=== PATIENT | female | born 1940 | race Hispanic/Latino ===

== ENCOUNTER 2017-04-22 13:31 | Observation (INO) | payer BC, MEDICARE ==
--- NOTE | 2017-04-22 14:03 | ED PDOC ---
Arrival/HPI - General Chief Complaint: Chest Pain Time Seen by Provider: 04/22/17 13:33 Historian: Patient - History of Present Illness Narrative History of Present Illness (Text): 04/22/17 13:35 Viki Rodriguez is a 77 year old female who presents to the emergency department complaining of pressure-like chest pain accompanied by cough for the last few days. Patient describes her chest pain to be like "someone is sitting on her chest" and experiences associated shortness of breath. Patient denies any fever , chills, nausea, vomiting, diarrhea, headache, dizziness, or any other complaints. PMD: Dr. Glasgow Time/Duration: < week Symptom Onset: Gradual Symptom Course: Unchanged Severity Level: Mild Activities at Onset: Light Context: Home Past Medical History - Provider Review Nursing Documentation Reviewed: Yes - Tetanus Immunization Tetanus Immunization: Unknown - Cardiac Hx Cardiac Disorders: Yes Hx Hypertension: Yes - Pulmonary Hx Respiratory Disorders: No - Neurological Hx Neurological Disorder: No - HEENT Hx HEENT Disorder: No - Renal Hx Renal Disorder: No - Endocrine/Metabolic Hx Endocrine Disorders: Yes Hx Diabetes Mellitus Type 2: Yes Hx Hypothyroidism: Yes - Hematological/Oncological Hx Blood Disorders: No Hx Blood Transfusions: No Hx Blood Transfusion Reaction: No - Integumentary Hx Dermatological Disorder: No - Musculoskeletal/Rheumatological Hx Musculoskeletal Disorders: No - Gastrointestinal Hx Gastrointestinal Disorders: Yes (APPENDECTOMY) Hx Gastroesophageal Reflux: Yes - Genitourinary/Gynecological Hx Genitourinary Disorders: No - Psychiatric Hx Psychophysiologic Disorder: No Hx Emotional Abuse: No Hx Physical Abuse: No Hx Substance Use: No - Surgical History Hx Appendectomy: Yes Hx Hysterectomy: Yes (partial hystrectomy 1980) - Anesthesia Hx Anesthesia Reactions: Yes Hx Malignant Hyperthermia: No - Suicidal Assessment Feels Threatened In Home Enviroment: No Family/Social History - Physician Review Nursing Documentation Reviewed: Yes Family/Social History: No Known Family HX Smoking Status: Light Smoker < 10 Cigarettes Daily Hx Alcohol Use: No Hx Substance Use: No Allergies/Home Meds Allergies/Adverse Reactions: Allergies Iodinated Contrast Media - Oral and Allergy (Verified 04/22/17 14:18) ITCHING Home Medications: Home Meds Medication Instructions Recorded Confirmed Fenofibrate [Tricor] 145 mg PO DAILY 04/18/13 04/22/17 Atorvastatin Calcium [Lipitor] 40 mg PO DAILY 06/06/13 04/22/17 Aspirin [Adult Low Dose Aspirin EC] 81 mg PO DAILY 04/22/17 04/22/17 Glyburide/Metformin HCl 1 tab PO BID 04/22/17 04/22/17 [Glyburide-Metformin 2.5-500 mg] Levothyroxine [Synthroid] 0.1 mg PO DAILY 04/22/17 04/22/17 amLODIPine [Norvasc] 125 mg PO DAILY 04/22/17 04/22/17 Physical Exam - Physical Exam Narrative Physical Exam (Text): - Review of Systems Constitutional: Normal. absent: Fatigue, Weight Change, Fevers Eyes: Normal ENT: Normal Respiratory: Normal absent: SOB, Cough, Sputum Cardiovascular: chest pain absent: Palpitations, Syncope Gastrointestinal: Normal absent: Abdominal pain, Diarrhea, Nausea, Vomiting Genitourinary: Normal. absent: Dysuria, Frequency, Hematuria Musculoskeletal: Normal. absent: Arthralgias, Back Pain, Neck Pain Skin: Normal Neurological: Normal absent: Focal Weakness Endocrine: Normal Hemo/Lymphatic: Normal Psychiatric: Normal - Physical exam Patient appears age appropriate, speaking full sentences without difficulty - Systems Exam Head: Present: Atraumatic, Normocephalic Pupils: Present: PERRL Extraocular Muscles: Present: EOMI Conjunctiva: Present: Normal Mouth: Present: Moist Mucous Membranes Neck: Present: Normal Range of Motion. No: MIDLINE TENDERNESS, Paraspinal Tenderness Respiratory/Chest: Present: Clear to Auscultation, Good Air Exchange. No: Respiratory Distress, Accessory Muscle Use, Tachypneic Cardiovascular: Present: Regular Rate and Rhythm, Normal S1, S2, Peripheral Pulses Present. No: Murmurs Abdomen: Present: Normal Bowel Sounds, No: Tenderness, Peritoneal Signs, Rebound, Guarding, Distention Back: Present: Normal Inspection. No: Midline Tenderness, Paraspinal Tenderness Upper Extremity: Present: Normal Inspection. No: Cyanosis, Edema Lower Extremity: Present: Normal Inspection. No: Edema Neurological: Present: GCS=15, Speech Normal, cranial nerves II through XII fully intact with no cerebellar abnormality, neuro-sensory fully intact. No focal neurological deficits. Skin: Present: Warm, Dry, Normal Color. No: Rashes Lymphatic: Present: OX3, NI, NC Psychiatric: Present: Alert, Oriented x 3, Normal Insight, Normal Concentration Vital Signs Reviewed: Yes Vital Signs Temp Pulse Pulse Resp BP BP Pulse Ox 04/22/17 15:19 86 18 153/75 H 97 04/22/17 13:52 97.7 F 68 83 18 188/89 H 188/89 H 99 04/22/17 13:41 97.7 F 91 H 18 188/89 H 98 Temperature: Afebrile Blood Pressure: Hypertensive Pulse: Tachycardic Respiratory Rate: Normal Appearance: Positive for: Well-Appearing, Non-Toxic, Comfortable Pain Distress: None Mental Status: Positive for: Alert and Oriented X 3 Medical Decision Making ED Course and Treatment: 04/22/17 13:35 Impression: 77 year old female complaining of pressure-like chest pain with associated coughs for a few days Differential Diagnosis include but are not limited to: ACS vs. Pneumonia Plan: -- Chest X-ray -- Labs -- Aspirin and Nitrostat -- Reassess and disposition Prior Visits: Notes and results from previous visits were reviewed. Patient last seen in ED on 04/08/13 for sudden onset of ringing in ears and severe dizziness that day. Patient was admitted to hospitalist care for further evaluation. Progress Notes: EKG shows NSR at [address]-segment elevations, normal intervals. with no prior for comparison. Interpreted by me. 04/22/17 16:28 CXR Outboard Motorboat Rigger : Suzanna Keene MD IMPRESSION: Cardiomegaly. Mild subsegmental bibasilar atelectasis. 04/22/17 16:[address] Garcia, covering for Dr. Gary ([place]), agrees with tele/obs, and Dr. Baumann on consult, per pt's request pt aware of and agrees with plan - Lab Interpretations Lab Results: 04/22/17 14:09 04/22/17 14:00 Lab Results 04/22/17 14:09: PT 11.5, INR 1.06, APTT 24.7 04/22/17 14:09: WBC 7.6, RBC 4.49, Hgb 13.0, Hct 39.3, MCV 87.5, MCH 29.0, MCHC 33.1, RDW 15.3 H, Plt Count 297, MPV 12.0 H, Gran % 61.8, Lymph % (Auto) 27.7, Dougherty % (Auto) 8.1 H, Eos % (Auto) 2.0, Baso % (Auto) 0.4, Gran # 4.72, Lymph # 2.1, Dougherty # 0.6, Eos # 0.2, Baso # 0.03 04/22/17 14:00: Sodium 141, Potassium 3.6, Chloride 105, Carbon Dioxide 24, Anion Gap 16, BUN 19, Creatinine 0.8, Est GFR ( Amer) > 60, Est GFR (Non- Af Amer) > 60, Random Glucose 147 H, Calcium 9.7, Total Bilirubin 0.6, AST 26, ALT 31, Alkaline Phosphatase 57, Lactate Dehydrogenase 480, Total Creatine Kinase 117, Troponin I < 0.01, Total Protein 7.5, Albumin 4.3, Globulin 3.2, Albumin/Globulin Ratio 1.3 - RAD Interpretation Radiology Orders: 04/22/17 14:09 CHEST PORTABLE [RAD] Stat - Medication Orders Current Medication Orders: Discontinued Medications Aspirin (Aspirin Chewable) 324 mg PO STAT STA Stop: 04/22/17 14:09 Last Admin: 04/22/17 14:28 Dose: 324 mg Nitroglycerin (Nitrostat Sl Tab) 0.3 mg SL STAT STA Stop: 04/22/17 14:09 Last Admin: 04/22/17 14:28 Dose: 0.3 mg - Scribe Statement The provider has reviewed the documentation as recorded by the Paul Childers Provider Scribe Attestation: All medical record entries made by the Scribe were at my direction and personally dictated by me. I have reviewed the chart and agree that the record accurately reflects my personal performance of the history, physical exam, medical decision making, and the department course for this patient. I have also personally directed, reviewed, and agree with the discharge instructions and disposition. Disposition/Present on Arrival - Present on Arrival Any Indicators Present on Arrival: No History of DVT/PE: No History of Uncontrolled Diabetes: No Urinary Catheter: No History of Decub. Ulcer: No History Surgical Site Infection Following: None - Disposition Have Diagnosis and Disposition been Completed?: Yes Diagnosis: Chest pain Disposition: HOME/ ROUTINE Disposition Time: 16:40 Patient Plan: Observation Condition: FAIR Discharge Instructions (ExitCare): Chest Pain (ED) Referrals: Tello Glasgow MD [Primary Care Provider] - Follow up with primary
[2017-04-22 15:03] LABS: ADD MANUAL DIFF? NO; BASO # 0.03 K/mm3 (0.0-2.0); BASO % 0.4 % (0.0-3.0); EOS # 0.2 (0.0-0.7); GRAN # 4.72 (1.4-6.5); GRAN % 61.8 % (50.0-68.0); HEMATOCRIT 39.3 % (36.0-48.0); LYMPH # 2.1 (1.2-3.4); LYMPH % 27.7 % (22.0-35.0); MEAN CELL VOLUME 87.5 fL (80.0-105.0); MEAN CORPUSCULAR HGB CONC 33.1 g/dl (31.0-37.0); MONO # 0.6 (0.1-0.6); MONO % 8.1 % (1.0-6.0); PLATELET COUNT 297 10^3/uL (120.0-450.0); RED CELL DISTRIBUTION WIDTH 15.3 % (11.5-14.5); WHITE BLOOD COUNT 7.6 10^3/ul (4.5-11.0)
[2017-04-22 15:13] LABS: INR 1.06 (0.93-1.08); PARTIAL THROMBOPLASTIN TIME 24.7 Seconds (23.7-30.8)
[2017-04-22 15:17] LABS: ALB/GLOB RATIO 1.3 (1.1-1.8); ALKALINE PHOSPHATASE 57 U/L (38-133); ALT/SGPT 31 U/L (7-56); AST/SGOT 26 U/L (15-39); BILIRUBIN,TOTAL 0.6 mg/dL (0.2-1.3); BLOOD UREA NITROGEN 19 mg/dL (7-21); CALCIUM 9.7 mg/dL (8.4-10.5); CARBON DIOXIDE 24 mmol/L (21-33); CHLORIDE 105 mmol/L (98-107); GFR AFRICAN-AMERICAN > 60; GLUCOSE,RANDOM 147 mg/dL (70-110); POTASSIUM 3.6 mmol/L (3.6-5.0); SODIUM 141 mmol/L (132-148); TOTAL PROTEIN 7.5 g/dL (5.8-8.3)
[2017-04-22 15:30] LABS: TROPONIN I < 0.01 ng/mL
--- NOTE | 2017-04-22 16:00 | RAD ---
HISTORY: cough COMPARISON: Chest x-ray performed 04/18/13 TECHNIQUE: Chest, one view. FINDINGS: LUNGS: Mild bibasilar subsegmental atelectasis. Please note that chest x-ray has limited sensitivity for the detection of pulmonary masses. PLEURA: No significant pleural effusion identified. No definite pneumothorax . CARDIOVASCULAR: Cardiomegaly. OSSEOUS STRUCTURES: Degenerative changes. VISUALIZED UPPER ABDOMEN: Unremarkable. OTHER FINDINGS: None. IMPRESSION: Cardiomegaly. Mild subsegmental bibasilar atelectasis.
[2017-04-22] MEDS ORDERED: Naproxen 550 mg Tab PO PRN (18:01)
[2017-04-22] MEDS ORDERED: METFORMIN HCL PO SCH (18:15)
[2017-04-22] MEDS ORDERED: [UNRECOGNIZED DRUG - OTHER] PO SCH (18:15)
[2017-04-22] MEDS ORDERED: GLYBURIDE PO SCH (18:15)
[2017-04-22 19:35] LABS: CHOLESTEROL 143 mg/dL (130-200)
[2017-04-22 20:03] VITALS: BMI 23.9
[2017-04-22] MEDS ORDERED: Pneumococcal 23-Valent Vaccine IM ONE (20:03)
[2017-04-22 20:05] LABS: TROPONIN I < 0.01 ng/mL
--- NOTE | 2017-04-22 20:40 | HP ---
HISTORY OF PRESENT ILLNESS: The patient is 77 years old, a patient of Dr. Glasgow, who came to the [facility] Room because of chest pain, it was pressure-like, that started a few days ago, but it got wors e today. She feels like somebody is sitting on the chest. She does have associated cough, but denie s any fever. Does complain of some generalized weakness and shortness of breath. No history of feve r or chills. No history of hemoptysis, no hematemesis, no nausea, vomiting, no diarrhea, no chest tr auma. No history of fall. PAST MEDICAL HISTORY: Is significant for: 1. Hypertension. 2. Hypothyroidism. 3. Non-insulin dependent diabetes. 4. Hyperlipidemia and hypertriglyceridemia. ALLERGIES: SHE IS ALLERGIC TO IODINATED RELATED CONTRAST DYE. MEDICATIONS AT HOME: She is on Norvasc 5 mg daily, levothyroxine 100 mcg daily. She is on Glucovanc e, Tricor 145 daily, Lipitor 40 mg daily, aspirin 81 daily. SOCIAL HISTORY: Denies smoking, drinking or alcohol use. REVIEW OF SYSTEMS: CONSTITUTIONAL: Denies any nausea or vomiting, no fever, no chills, no weight loss, no diaphoresis. CARDIOVASCULAR: She does have chest pressure, but no associated palpitations. EXTREMITIES: A history of leg edema. RESPIRATORY: No shortness of breath. Does have a scanty cough. GASTROINTESTINAL: She denies any abdominal pain. No history of dysphagia. She did not have any hem optysis or hematemesis. PHYSICAL EXAMINATION: GENERAL: She is awake and alert, communicative. VITAL SIGNS: She is afebrile, pulse 86, respirations 18, blood pressure 153/75. LUNGS: Bilateral fair airflow, no rhonchi or crackle. HEART: S1, S2 audible. No murmur. ABDOMEN: Soft, nontender, no rebound, no guarding. NEUROLOGIC: The patient is awake and alert, communicative. LABORATORY DATA: WBC 7.6, hemoglobin 13, hematocrit 39, platelet of 297. PT 11.5, INR 1.06, PTT ___ __. Chemistry: Sodium 141, potassium 3.6, chloride 105, 19, creatinine 0.8, blood sugar 147. LFTs are within normal limits. Troponin 0.01. Albumin 4.3. X-ray chest is unremarkable. ASSESSMENT: 1. Chest pain, rule out coronary artery disease. 2. Hypertension. 3. Hyperlipidemia. 4. Non-insulin dependent diabetes. PLAN: The patient will be placed in observation. Will follow up cardiac enzymes. Analgesic as need ed. Follow up hemoglobin A1c. Thyroid profile and liver profile. Will monitor her blood sugar and start her on aspirin 81 daily. Will resume glyburide 2.5 and metformin 500 before breakfast and dinn er. Cardiology consult by Dr. Baumann has been requested. Out of bed to chair, physical therapy evalua tion has been requested and the patient will be evaluated in a.m. Mario Garcia MD cc: [id number] TT: 04/22/2017 20:39:37 dn
[2017-04-22] MEDS: Insulin Reg-LOW-Coverage SC SCH (23:34)
[2017-04-23] MEDS: Pantoprazole 40 mg EC Tab PO SCH (05:54)
[2017-04-23 06:16] VITALS: O2SAT 97
[2017-04-23 06:55] LABS: ADD MANUAL DIFF? NO
[2017-04-23 07:16] LABS: BASO # 0.03 K/mm3 (0.0-2.0); BASO % 0.4 % (0.0-3.0); EOS # 0.2 (0.0-0.7); EOS % 1.9 % (1.5-5.0); GRAN # 5.21 (1.4-6.5); HEMATOCRIT 37.9 % (36.0-48.0); LYMPH # 2.1 (1.2-3.4); LYMPH % 25.3 % (22.0-35.0); MEAN CELL VOLUME 87.3 fL (80.0-105.0); MEAN CORPUSCULAR HEMOGLOBIN 28.6 pg (25.0-35.0); MEAN CORPUSCULAR HGB CONC 32.7 g/dl (31.0-37.0); MEAN PLATELET VOLUME 11.8 fl (7.0-11.0); MONO # 0.8 (0.1-0.6); MONO % 9.4 % (1.0-6.0); PLATELET COUNT 278 10^3/uL (120.0-450.0); RED CELL DISTRIBUTION WIDTH 15.4 % (11.5-14.5); WHITE BLOOD COUNT 8.3 10^3/ul (4.5-11.0)
[2017-04-23 07:17] LABS: ALB/GLOB RATIO 1.2 (1.1-1.8); ALKALINE PHOSPHATASE 50 U/L (38-133); ALT/SGPT 32 U/L (7-56); AST/SGOT 24 U/L (15-39); BILIRUBIN,TOTAL 0.5 mg/dL (0.2-1.3); BLOOD UREA NITROGEN 15 mg/dL (7-21); CALCIUM 8.9 mg/dL (8.4-10.5); CARBON DIOXIDE 26 mmol/L (21-33); CHLORIDE 107 mmol/L (98-107); GFR AFRICAN-AMERICAN > 60; GLUCOSE,RANDOM 102 mg/dL (70-110); MAGNESIUM 1.7 mg/dL (1.7-2.2); POTASSIUM 3.6 mmol/L (3.6-5.0); SODIUM 141 mmol/L (132-148); TOTAL PROTEIN 6.5 g/dL (5.8-8.3)
[2017-04-23 07:25] LABS: FREE T4 1.31 ng/dL (0.78-2.19)
[2017-04-23 07:39] LABS: THYROID STIMULATING HORMONE 1.26 mIU/mL (0.46-4.68)
[2017-04-23] MEDS: Insulin Reg-LOW-Coverage SC SCH ×4 (08:25→22:00)
[2017-04-23] MEDS: Metoprolol Succinate 25 mg XL Tab PO SCH (08:25)
[2017-04-23] MEDS: Levothyroxine 100 MCG TAB PO SCH (08:25)
[2017-04-23] MEDS ORDERED: Promethazine/Cod 6.25mg-10mg/5ml Syr UD PO PRN (10:19)
[2017-04-23] MEDS: levoFLOXacin 500 MG TAB PO SCH (11:14)
--- NOTE | 2017-04-23 11:46 | PN ---
DATE: 04/23/2017 SUBJECTIVE: The patient is a 77-year-old, seen and examined, lying in bed. She states she feels a l ot better. No more chest pain. Still has scanty cough. No nausea, vomiting, no diarrhea. Eating a nd tolerating. [place]. Did not want to go to the local hospital so her daughter brought her here and since admission she is feeling much chong r. PHYSICAL EXAMINATION: VITAL SIGNS: The patient is afebrile, pulse 75, respirations 20, blood pressure 169/66. LUNGS: Bilateral fair airflow, no crackle. HEART: S1, S2 audible. ABDOMEN: Soft, nontender, no rebound, no guarding. NEUROLOGIC: The patient is awake and alert, able to communicate. LABORATORY EXAMINATION: WBC is 8.3, hemoglobin 12.4, hematocrit 37, platelet 278. Chemistry: Sodiu m 141, potassium 3.6, chloride 107, CO2 of 23, BUN 15, creatinine 0.7, blood sugar 112. LFTs are wit hin normal limits. X-ray chest shows mild subsegmental bibasilar atelectasis and cardiomegaly. ASSESSMENT: 1. Chest pain, probably noncardiac. Two sets of cardiac enzymes are negative. Third is pending. 2. Hypertension. 3. Hyperlipidemia. 4. Non-insulin dependent diabetes. PLAN: Currently, the patient is stable on her usual medication. Awaiting cardiology input. Is less likely it is cardiology's related chest discomfort. After she is seen by senior technical specialist, stress test can be arranged as outpatient and she can follow up with Dr. Glasgow as outpatient. Mario Garcia MD cc: [id number] TT: 04/23/2017 11:45:34 Confirmation # [id number] Dictation # [id number] [id number]
--- NOTE | 2017-04-23 16:26 | CON ---
DATE: 04/23/2017 REASON FOR CONSULTATION: Chest pain. HISTORY OF PRESENT ILLNESS: The patient is a 77-year-old female who is a smoker, has a history of di abetes mellitus, hypertension as well as hypothyroidism. The patient presented because of chest pain, which she describes to the Emergency Room physician as pressure like. However, in her description to me, she mainly was bothered by the shortness of breath and what she described as chest tightness. T he patient is unaware of any prior heart attack in the past. The patient reported productive cough, night sweats. The patient denies any history of TB or TB exposure in the past. SOCIAL HISTORY: The patient is a smoker who stated that a pack lasts her a few days. REVIEW OF SYSTEMS: No nausea or vomiting. The patient complains of night sweats, changes her clothe s twice at night. MEDICATIONS: Anaprox 550 mg twice a day p.r.n., aspirin 81 mg once a day, Glucophage 500 mg twice a day, Levaquin 500 mg daily, Lipitor 40 mg once a day, Micronase 5 mg twice a day, Norvasc 10 mg once a day, Phenergan with codeine 5 mL q. 4 hours p.r.n., Protonix 40 mg once a day, Toprol-XL 25 mg once a day, Synthroid 100 mg once a day, Tricor 145 mg once a day, Zofran 4 mg intravenously q. 6 hours p.r.n. PHYSICAL EXAMINATION: GENERAL: The patient is an elderly female who does not appear to be in any distress, but appears ernesto ciated. VITAL SIGNS: Blood pressure 156/82, heart rate 57, temperature 97.3, respirations 19. HEENT: Normocephalic. NECK: No JVD. CHEST: Minimal rhonchi. HEART: S1, S2 regular. ABDOMEN: Soft. EXTREMITIES: No edema. LABORATORY DATA: Hemoglobin and hematocrit 12.4 and 37.9. White count and platelet count are 8.3 an d 278,000. PT, PTT within normal limits. SMA-7 is entirely within normal limits. Two sets of tropo nins are negative. Triglycerides elevated 257, HDL is below normal at 28. TSH-7 and free T4 are wit hin normal limits. EKG revealed normal sinus rhythm, left atrial enlargement. Chest x-ray revealed cardiomegaly with prominent bronchovascular markings. ASSESSMENT: 1. Chest pain, myocardial infarction is ruled out. 2. Consider underlying congestive heart failure. 3. Hypertension and diabetes mellitus. 4. Hyperlipidemia. RECOMMENDATIONS: Continue aspirin 81 mg once a day, Levaquin at 500 mg orally daily, Lipitor at 40 m g once a day, Norvasc 10 mg once a day, Synthroid 100 mcg once a day, Toprol-XL 25 mg once a day, Tri cor 145 mg once a day. Obtain an echocardiogram. Consider PPD testing. I will administer 1 dose of Lasix 20 mg IV push. Harjit Mcmahan MD cc: [id number] TT: 04/23/2017 16:25:39 Confirmation # [id number] Dictation # [id number] mn
--- NOTE | 2017-04-23 22:14 | CARD ---
APPROVED REPORT EKG Measurement Heart [id number] <Conclusion> Normal sinus rhythm Possible Left atrial enlargement Possible Inferior infarct, age undetermined PRWP Abnormal EKG
[2017-04-24] MEDS: Pantoprazole 40 mg EC Tab PO SCH (05:51)
--- NOTE | 2017-04-24 08:25 | DS ---
SUBJECTIVE: The patient is a 77-year-old female who came in to the hospital because of chest pain. She was seen by cardiology. She had cardiac enzymes which were negative. She has no complaints of a ny chest pain or shortness of breath, no headaches. She is going to follow up as an outpatient for h er symptoms. No headaches or dizziness, no nausea or vomiting. PHYSICAL EXAMINATION: VITAL SIGNS: Temperature is 98.2, pulse of 56, blood pressure 143/63, respirations 19. GENERAL: The patient comfortable, in no acute distress. HEENT: Anicteric sclerae. Moist mucosa. NECK: No JVD or adenopathy. CARDIAC: S1/S2. No murmurs. No rubs. Regular. RESPIRATORY: Clear to auscultation bilaterally. No wheezes, rales, or rhonchi. Good air entry. ABDOMEN: Bowel sounds are positive, soft, nontender, and nondistended. EXTREMITIES: No edema. Has 1+ pulses. LABS: Her LDL cholesterol is 102. TSH is 1.26. ASSESSMENT: 1. Chest pain. 2. Hypertension. 3. Dyslipidemia. 4. Diabetes, type 2. PLAN: The patient is currently comfortable. She is on metformin. She is going to be on aspirin. S he is on Levaquin for antibiotics. She is on her metoprolol. She is on Tricor for her dyslipidemia. She has an echo that is ordered and is pending. CONDITION: Stable. ACTIVITIES: Increase as tolerated. She is going to follow with Dr. Glasgow in 1-2 weeks. She is advi sed to return to the hospital if her symptoms return. Dominic Gary MD cc: [id number] TT: 04/24/2017 08:24:07 la
[2017-04-24] MEDS: Metoprolol Succinate 25 mg XL Tab PO SCH (08:35)
[2017-04-24] MEDS: Levothyroxine 100 MCG TAB PO SCH (08:36)
[2017-04-24] MEDS: Insulin Reg-LOW-Coverage SC SCH ×2 (08:39→11:54)
[2017-04-24] MEDS: levoFLOXacin 500 MG TAB PO SCH (10:25)
[2017-04-24 12:30] VITALS: BP 136/71; PULSE 57; RESP 20; TEMP 97.8
--- NOTE | 2017-04-25 08:43 | PN ---
DATE: 04/24/2017 REASON FOR CONSULTATION AND FOLLOWUP: Chest pain. BRIEF CLINICAL HISTORY: This is a 77-year-old female, active tobacco abuse, history of diabetes, hyp ertension, hyperlipidemia, hypothyroidism, presented because of abdominal pain going to the chest. _ ___ any chest pain. Feels pain at both breasts and started coughing, and also pain radiated to the b ack. The patient was offered a stress test today. The patient refused. No evidence of acute [place]. PHYSICAL EXAMINATION: VITAL SIGNS: Temperature afebrile, heart rate 57, blood pressure 136/71. HEENT: PERRLA. Extraocular muscles intact. NECK: Supple. No carotid bruit or thyromegaly. CHEST: Clear to auscultation. HEART: S1, S2 regular. ABDOMEN: Soft. EXTREMITIES: Clubbing and cyanosis negative. BLOOD WORKUP: As follows: WBC 8.3, hemoglobin 12.4, hematocrit 37.9, platelet count 278. Chemistry shows sodium 141, potassium 3.6, chloride 107, carbon dioxide 26, anion gap of 12, BUN 15, creatinin e 0.7. TSH 1.26. Troponin 0.01. IMPRESSION: No evidence of acute myocardial infarction, atypical chest pain, abdominal pain, no evid ence for acute myocardial infarction, hypertension, diabetes, hyperlipidemia. RECOMMENDATION: Continue medical treatment. The patient is on Norvasc, aspirin, Synthroid. DISCUSS ED WITH THE PATIENT ABOUT THE STRESS TEST TODAY. THE PATIENT REFUSED THE STRESS TEST; DOES NOT WANT A STRESS TEST. Continue medical treatment. CVS status is stable. Will follow with you. Thank you, Dr. Gary, for providing the opportunity in taking care of the patient. Edwin Baumann MD cc: [id number] TT: 04/24/2017 16:16:38 Confirmation # [id number] Dictation # [id number]
== END 2017-04-24 12:58 | disposition home or self-care (01) ==
LOC: ED 13:31 → ERH 16:40 → 2RNO 22:37
PROVIDERS: ADMIT Internal Medicine; ATTEND Internal Medicine Nephrology
DX: R07.89 Other chest pain (principal); I10 Essential (primary) hypertension; E78.5 Hyperlipidemia, unspecified; E11.9 Type 2 diabetes mellitus without complications; E03.9 Hypothyroidism, unspecified; F17.200 Nicotine dependence, unspecified, uncomplicated; Z79.84 Long term (current) use of oral hypoglycemic drugs; Z79.82 Long term (current) use of aspirin; Z91.041 Radiographic dye allergy status
CPT/HCPCS: 36415; 71010; 80053; 80061; 82550; 82948; 83036; 83615; 83735; 84439; 84443; 84484; 85025; 85610; 85730; 93005; 97116; 97161; 99285; G0378; G8978; G8979; G8980; J1940

== ENCOUNTER 2017-09-17 20:44 | Inpatient (IN) | payer MEDICARE ==
[2017-09-17] MEDS ORDERED: Etomidate 20 mg/10ml Inj IV ONE (21:01)
[2017-09-17] MEDS ORDERED: Succinylcholine 200 mg/10 ml Inj IV ONE (21:01)
[2017-09-17] MEDS ORDERED: Ipratropium 0.02% Inhal Soln (0.5 mg/2.5 ml) UD IH STA ×3 (21:18→21:20)
[2017-09-17] MEDS ORDERED: Levalbuterol 1.25 MG/3 ML Inhal Soln UD IH STA ×3 (21:18→21:20)
[2017-09-17] MEDS ORDERED: Propofol 10 mg/ml 1,000 MG/100 ML VIAL ONE ×2 (21:18→23:04)
[2017-09-17 21:21] LABS: BASO # 0.06 K/mm3 (0.0-2.0); BASO % 0.3 % (0.0-3.0); EOS # 0.2 (0.0-0.7); EOS % 1.1 % (1.5-5.0); GRAN # 12.44 (1.4-6.5); GRAN % 64.8 % (50.0-68.0); HEMATOCRIT 40.1 % (36.0-48.0); LYMPH % 26.2 % (22.0-35.0); MEAN CELL VOLUME 88.1 fl (80.0-105.0); MEAN CORPUSCULAR HEMOGLOBIN 28.8 pg (25.0-35.0); MEAN CORPUSCULAR HGB CONC 32.7 g/dl (31.0-37.0); MEAN PLATELET VOLUME 12.9 fl (7.0-11.0); MONO # 1.5 (0.1-0.6); MONO % 7.6 % (1.0-6.0); RED CELL DISTRIBUTION WIDTH 15.7 % (11.5-14.5); WHITE BLOOD COUNT 19.2 10^3/ul (4.5-11.0)
[2017-09-17] MEDS ORDERED: Sodium Chloride 0.9% 1,000 ML IV STA (21:24)
--- NOTE | 2017-09-17 21:25 | ED PDOC ---
Arrival/HPI - General Chief Complaint: Respiratory Distress Time Seen by Provider: 09/17/17 20:47 Historian: Patient - Critical Care Critical Care Minutes: 45 minutes - History of Present Illness Narrative History of Present Illness (Text): 09/17/17 20:47 Viki Rodriguez is a 77 year old female, whose past medical history hypertension, hyperlipidemia, non-insulin dependent diabetes, and hypothyroidism, who presents to the emergency department for severe respiratory distress which began prior to arrival. According to patient's family, patient was well earlier in the evening until she went to the bathroom and came out in severe respiratory distress. When EMS found patient, O2 saturation was 65% and patient was placed on CPAP. SBP was >200 in the field; she was given 2 sprays of nitro. Here in Emergency department, patient admits to chest pain and severe shortness of breath and is saying she does not feel any better on the CPAP. According to family, patient came back last night from [place] but was in usual health. Of note, patient injured one of her shoulders while getting out of her car. No other complaints at this time. PMD: Dr. Glasgow Time/Duration: Prior to Arrival Symptom Onset: Sudden Symptom Course: Unchanged Activities at Onset: Light Context: Home Past Medical History - Provider Review Nursing Documentation Reviewed: Yes - Infectious Disease Hx of Infectious Diseases: None - Tetanus Immunization Tetanus Immunization: Unknown - Cardiac Hx Hypertension: Yes - Pulmonary Other/Comment: smoker - Neurological Hx Dizziness: Yes (vertigo) - HEENT Hx HEENT Disorder: No Other/Comment: does not recall ringing in ears and head - Renal Hx Renal Disorder: No - Endocrine/Metabolic Hx Diabetes Mellitus Type 2: Yes Hx Hypothyroidism: Yes - Hematological/Oncological Hx Blood Disorders: No - Integumentary Hx Dermatological Disorder: No - Musculoskeletal/Rheumatological Hx Falls: No - Gastrointestinal Hx Gastrointestinal Disorders: Yes (dx hiatal hernia 25 yrs ago) Hx Gastroesophageal Reflux: Yes - Genitourinary/Gynecological Hx Genitourinary Disorders: No - Psychiatric Hx Psychophysiologic Disorder: No Hx Depression: Yes Hx Emotional Abuse: No Hx Physical Abuse: No Hx Substance Use: No - Surgical History Hx Appendectomy: Yes Hx Hysterectomy: Yes (partial hystrectomy 1980) - Anesthesia Hx Anesthesia Reactions: Yes Hx Malignant Hyperthermia: No - Suicidal Assessment Feels Threatened In Home Enviroment: No Family/Social History - Physician Review Nursing Documentation Reviewed: Yes Family/Social History: No Known Family HX Smoking Status: Light Smoker < 10 Cigarettes Daily Hx Alcohol Use: Yes Frequency of alcohol use: Socially Hx Substance Use: No Allergies/Home Meds Allergies/Adverse Reactions: Allergies Iodinated Contrast- Oral and IV Dye Allergy (Verified 04/22/17 14:18) ITCHING Home Medications: Home Meds Medication Instructions Recorded Confirmed Fenofibrate [Tricor] 145 mg PO DAILY 04/18/13 09/17/17 Atorvastatin Calcium [Lipitor] 40 mg PO DAILY 06/06/13 09/17/17 Aspirin [Adult Low Dose Aspirin EC] 81 mg PO DAILY 04/22/17 09/17/17 Glyburide/Metformin HCl 1 tab PO BID 04/22/17 09/17/17 [Glyburide-Metformin 2.5-500 mg] Levothyroxine [Synthroid] 125 mcg PO DAILY 04/22/17 09/17/17 amLODIPine [Norvasc] 10 mg PO DAILY 04/22/17 09/17/17 Review of Systems - Review of Systems Systems not reviewed;Unavailable: Acuity of Condition Respiratory: SOB Cardiovascular: Chest Pain Physical Exam Vital Signs Reviewed: Yes Vital Signs Temp Pulse Resp BP Pulse Ox 09/17/17 21:18 100.6 F H 115 H 14 138/53 L 97 Temperature: Febrile Blood Pressure: Hypertensive Pulse: Tachycardic Respiratory Rate: Tachypneic Appearance: Positive for: Ill-Appearing, Other (severe respiratory distress on CiPAP; O2 saturation worsening to 70%; FI O2 at 100%) Pain Distress: None Mental Status: Positive for: other (Alert) - Systems Exam Head: Present: Atraumatic, Normocephalic Pupils: Present: PERRL Conjunctiva: Present: Normal Ears: Present: Normal Mouth: Present: Moist Mucous Membranes Pharnyx: Present: Normal. No: ERYTHEMA, EXUDATE, TONSILS ENLARGED Neck: No: JVD Respiratory/Chest: Present: Rhonchi (bilateral) Cardiovascular: Present: Normal S1, S2, Tachycardic. No: Murmurs Abdomen: Present: Normal Bowel Sounds. No: Tenderness, Distention, Peritoneal Signs Lower Extremity: Present: Normal Inspection. No: Edema Neurological: Present: GCS=15, CN II-XII Intact, Speech Normal Skin: Present: Warm, Dry, Normal Color. No: Rashes Psychiatric: Present: Alert Medical Decision Making ED Course and Treatment: 09/17/17 20:50 Impression: 77 year old female brought in by EMS complaining of severe respiratory distress which began prior to arrival Differential Diagnosis included but are not limited to: COPD exacerbation vs pneumonia vs CHF vs PE vs AMI Plan: -- EKG -- Chest X-ray -- Chest CT w/o contrast -- ABG and Blood Culture -- Urinalysis -- Labs -- Lovenox, Atrovent, Xopenex, Maxipime, Solu-medrol, Diprivan, Vancomycin, and IV fluids -- Reassess and disposition Prior Visits: Notes and results from previous visits were reviewed. Patient was last seen in the emergency department on 04/22/17 for pressure-like chest pain accompanied by cough for a few days. Patient was discharged home. Progress Notes: EKG: Ordered, reviewed, and independently interpreted the EKG. Rate : 127 BPM Rhythm : Sinus Tachycardia Interpretation : Normal intervals, normal axis with ST depressions present in V3 through V6 which were not present on 04/22/17. 09/17/17 20:50 Patient was brought in severe respiratory distress on CPAP; patient saying she is not improving and appearing to be tiring out with O2 sat dwindling to 70% on the Bipap with FIO2 of 100%. Patient intubated and vitals much improved after intubation. CXR showing b/L infiltrates (L>R) with vascular congestion 09/17/17 22:23 Labs with WBC of 19K with with low grade temp of 100.6; BP came down after intubation. ABG with pH of 7.32 with no hypercapnea. BNP is 1600 - EKG with nonspecific changes with no history of CHF and no JVD or LE swelling on exam. CXR shows some vascular congestion. Lactic acid was 2.4; code sepsis called. Patient given iv antibiotics and IVF, per code sepsis protocol. D-dimer was elevated at 515, but patient is allergic to iv contrast dye, so unable to do CTA of the chest - patient given therapeutic dose of lovenox at 1 mg /kg Q12H for possible DVT/PE and will need V/Q scan and LE dopplers in the am. The case was discussed with the cast iron dipper, Dr. Arcos for ICU admission. Case was discussed with Dr. Gary for admission on his service. - Critical Care Critical Care Minutes: 45 minutes - Lab Interpretations Lab Results: 09/17/17 20:50 09/17/17 20:50 Lab Results 09/17/17 20:50: Alcohol, Quantitative < 10 09/17/17 20:50: Sodium 145, Potassium 3.7, Chloride 107, Carbon Dioxide 25, Anion Gap 17, BUN 21, Creatinine 0.8, Est GFR ( Amer) > 60, Est GFR (Non- Af Amer) > 60, Random Glucose 282 H, Calcium 9.8, Magnesium 1.6 L, Total Bilirubin 0.7, Direct Bilirubin 0.6 H, AST 38 H, ALT 35, Alkaline Phosphatase 66 , Lactate Dehydrogenase 504, Total Creatine Kinase 51, Troponin I 0.02 D, NT- Pro-B Natriuret Pep 1600 H, Total Protein 7.4, Albumin 4.2, Globulin 3.2, Albumin/Globulin Ratio 1.3, Lipase 72 09/17/17 20:50: PT 11.3, INR 1.04, APTT 26.4, D-Dimer, Quantitative 515 H 09/17/17 20:50: WBC 19.2 H D, RBC 4.55, Hgb 13.1, Hct 40.1, MCV 88.1, MCH 28.8, MCHC 32.7, RDW 15.7 H, Plt Count 363, MPV 12.9 H, Gran % 64.8, Lymph % (Auto) 26.2, Dupage % (Auto) 7.6 H, Eos % (Auto) 1.1 L, Baso % (Auto) 0.3, Gran # 12.44 H , Lymph # 5.0 H, Dupage # 1.5 H, Eos # 0.2, Baso # 0.06 I have reviewed the lab results: Yes - RAD Interpretation Radiology Orders: 09/17/17 20:49 CHEST PORTABLE [RAD] Stat - Medication Orders Current Medication Orders: Propofol (Diprivan) 1,000 mg in 100 mls @ 1.837 mls/hr IV .Q24H PRN; Protocol; 5 MCG/KG/MIN PRN Reason: TITRATE PER MD ORDER Last Admin: 09/17/17 21:29 Dose: 5 mcg/kg/min, 1.837 mls/hr eMAR Start Stop Document 09/17/17 21:29 GMD (Rec: 09/17/17 21:29 GMD [id number]) Intravenous Solution Start Date 09/17/17 Start Time 21:29 Titration Intervention Document 09/17/17 21:29 GMD (Rec: 09/17/17 21:29 GMD [id number]) Titration Intake Waste Amount 0 Container Volume 100 Titration Dosing Titration Dose 5 IV Rate 1.837 Intake/Decrease Started Cefepime HCl (Maxipime 1gm) 1 gm in 100 mls @ 100 mls/hr IVPB Q24H SUSAN PRN Reason: Protocol Last Admin: 09/17/17 21:31 Dose: 100 mls/hr eMAR Start Stop Document 09/17/17 21:31 GMD (Rec: 09/17/17 21:31 GMD [id number]) Intravenous Solution Start Date 09/17/17 Start Time 21:31 End Date 09/17/17 End time 22:31 Total Infusion Time 60 Vancomycin HCl 1 gm/ Sodium (Chloride) 250 mls @ 133.333 mls/hr IV STAT STA PRN Reason: Protocol Stop: 09/17/17 23:15 Sodium Chloride (Sodium Chloride 0.9%) 1,000 mls @ 999 mls/hr IV .Q1H1M STA Stop: 09/17/17 22:24 Last Admin: 09/17/17 21:29 Dose: 999 mls/hr eMAR Start Stop Document 09/17/17 21:29 GMD (Rec: 09/17/17 21:29 GMD [id number]) Intravenous Solution Start Date 09/17/17 Start Time 21:29 End Date 09/17/17 End time 22:30 Total Infusion Time 61 Magnesium Sulfate 2 gm/ Sodium (Chloride) 104 mls @ 102 mls/hr IVPB ONCE STA Stop: 09/17/17 22:36 Last Admin: 09/17/17 22:10 Dose: 102 mls/hr eMAR Start Stop Document 09/17/17 22:10 LAC (Rec: 09/17/17 22:10 LAC [facility] [id number]) Intravenous Solution Start Date 09/17/17 Start Time 22:10 End Date 09/17/17 End time 23:10 Total Infusion Time 60 Discontinued Medications Enoxaparin Sodium (Lovenox) 60 mg SC STAT STA PRN Reason: Protocol Stop: 09/17/17 21:29 Last Admin: 09/17/17 22:14 Dose: 60 mg Subcutaneous Administrations Document 09/17/17 22:14 LAC (Rec: 09/17/17 22:14 LAC [facility] [id number] Injection Site MAR Injection Site Left Abdomen Charges for Administration # of Subcutaneous Administrations 1 Ipratropium Lynn (Atrovent) 0.5 mg IH STAT STA Stop: 09/17/17 21:19 Last Admin: 09/17/17 21:28 Dose: 0.5 mg Ipratropium Lynn (Atrovent) 0.5 mg IH STAT STA Stop: 09/17/17 21:20 Last Admin: 09/17/17 21:55 Dose: 0.5 mg Ipratropium Lynn (Atrovent) 0.5 mg IH STAT STA Stop: 09/17/17 21:21 Last Admin: 09/17/17 22:13 Dose: 0.5 mg Levalbuterol HCl (Xopenex) 1.25 mg IH STAT STA Stop: 09/17/17 21:19 Last Admin: 09/17/17 21:29 Dose: 1.25 mg Levalbuterol HCl (Xopenex) 1.25 mg IH STAT STA Stop: 09/17/17 21:20 Last Admin: 09/17/17 21:55 Dose: 1.25 mg Levalbuterol HCl (Xopenex) 1.25 mg IH STAT STA Stop: 09/17/17 21:21 Last Admin: 09/17/17 22:13 Dose: 1.25 mg Methylprednisolone (Solu-Medrol) 125 mg IVP STAT STA Stop: 09/17/17 21:19 Last Admin: 09/17/17 21:28 Dose: 125 mg IVP Administration Document 09/17/17 21:28 GMD (Rec: 09/17/17 21:28 GMD [id number]) Charges for Administration # of IVP Administrations 1 Ondansetron HCl (Zofran Inj) 4 mg IVP STAT STA Stop: 09/17/17 21:47 Last Admin: 09/17/17 21:47 Dose: 4 mg IVP Administration Document 09/17/17 21:47 GMD (Rec: 09/17/17 21:47 GMD [id number]) Charges for Administration # of IVP Administrations 1 - Scribe Statement The provider has reviewed the documentation as recorded by the Paul Childers Provider Scribe Attestation: All medical record entries made by the Scribe were at my direction and personally dictated by me. I have reviewed the chart and agree that the record accurately reflects my personal performance of the history, physical exam, medical decision making, and the department course for this patient. I have also personally directed, reviewed, and agree with the discharge instructions and disposition. Disposition/Present on Arrival - Present on Arrival Any Indicators Present on Arrival: No History of DVT/PE: No History of Uncontrolled Diabetes: No Urinary Catheter: No History of Decub. Ulcer: No History Surgical Site Infection Following: None - Disposition Have Diagnosis and Disposition been Completed?: Yes Diagnosis: Respiratory distress, Sepsis Disposition: HOSPITALIZED Disposition Time: 21:10 Patient Plan: Admission, ICU Condition: CRITICAL Endotracheal Intubation - Endotracheal Intubation Intubated With ETT Size: 7.5 Blade Type Used: Curved Indication: Respiratory Failure Intubated: Orally Pre-Intubation Airway Assessment: Need For Airway management Did Not Allow Time Medications Used During Pre-Intubation: Etomidate Paralyzed With: Succinylcholine Post-Intubation Assessment: ETT Secured AT (cm): (22), Breath Sounds Equal Bilat , Placement Confirmed Via CXR, Color Change W/End Tidal CO2 Detector, Oxygen Saturation: (100%)
[2017-09-17 21:27] LABS: INR 1.04 (0.93-1.08); PARTIAL THROMBOPLASTIN TIME 26.4 Seconds (25.1-36.5)
[2017-09-17] MEDS ORDERED: Enoxaparin 60 mg Syringe SC STA (21:28)
[2017-09-17] MEDS: Propofol 10 mg/ml 1,000 MG/100 ML VIAL IV PRN (21:29)
[2017-09-17 21:30] LABS: ALB/GLOB RATIO 1.3 (1.1-1.8); ALKALINE PHOSPHATASE 66 U/L (38-126); ALT/SGPT 35 U/L (7-56); AST/SGOT 38 U/L (14-36); BILIRUBIN,DIRECT 0.6 mg/dL (0.0-0.4); BILIRUBIN,TOTAL 0.7 mg/dL (0.2-1.3); BLOOD UREA NITROGEN 21 mg/dL (7-21); CALCIUM 9.8 mg/dL (8.4-10.5); CARBON DIOXIDE 25 mmol/L (21-33); CHLORIDE 107 mmol/L (98-107); GFR AFRICAN-AMERICAN > 60; GLUCOSE,RANDOM 282 mg/dL (70-110); LIPASE 72 U/L (23-300); MAGNESIUM 1.6 mg/dL (1.7-2.2); POTASSIUM 3.7 mmol/L (3.6-5.0); SODIUM 145 mmol/L (132-148); TOTAL PROTEIN 7.4 g/dL (5.8-8.3)
[2017-09-17] MEDS ORDERED: Cefepime 1gm in NS 100ml 1 GM/100 ML BAG IVPB SCH (21:30)
[2017-09-17] MEDS ORDERED: Magnesium Sulfate 2 GM in Sodium Chloride 0.9% 100 ML IVPB STA (21:35)
[2017-09-17 21:40] LABS: TROPONIN I 0.02 ng/mL
[2017-09-17 21:52] LABS: URINE BILIRUBIN NEGATIVE (NEGATIVE); URINE BLOOD NEGATIVE (NEGATIVE); URINE GLUCOSE (UA) 500 mg/dL (NEGATIVE); URINE KETONE TRACE mg/dL (NEGATIVE); URINE LEUKOCYTE ESTERASE NEGATIVE Leu/uL (NEGATIVE); URINE PROTEIN 30 mg/dL (<30 mg/dL); URINE UROBILINOGEN 0.2 E.U./dL (<1 E.U./dL)
[2017-09-17 22:06] LABS: ARTERIAL BLOOD GAS HCO3 20.1 mmol/L (21-28); ARTERIAL BLOOD GAS PH 7.32 (7.35-7.45)
[2017-09-17 22:29] LABS: URINE APPEARANCE CLEAR (CLEAR); URINE COLOR YELLOW (YELLOW)
[2017-09-17 22:30] LABS: URINE BACTERIA TRACE (NEG); URINE EPITHELIAL CELLS 0 - 2 /hpf (0-5); URINE RBC 0 - 2 /hpf (0-2); URINE WBC 0 - 2 /hpf (0-6)
[2017-09-17] MEDS ORDERED: Albuterol-Ipratrop 3 mg / 0.5 (3 ml) UD IH PRN (22:33)
--- NOTE | 2017-09-17 23:39 | CT ---
EXAM: CT Chest Without Intravenous Contrast CLINICAL HISTORY: 77 years old, female; Signs and symptoms; Other: Severe resp distress, intubated TECHNIQUE: Axial computed tomography images of the chest without intravenous contrast. All CT scans at this facility use one or more dose reduction techniques, viz.: automated exposure control; ma/kV adjustment per patient size (including targeted exams where dose is matched to indication; i.e. head); or iterative reconstruction technique. MIP reconstructed images were created and reviewed. Coronal and sagittal reformatted images were created and reviewed. COMPARISON: No relevant prior studies available. FINDINGS: The cardiomediastinal silhouette is enlarged, unchanged. An endotracheal tube is identified with its tip approximately 3 cm above the level of the sadie. An orogastric tube extends below the left hemidiaphragm, with its tip projecting beyond the confines of the gastric lumen, possibly artifactual. Moderate interstitial thickening with bibasilar nodular consolidation and small bilateral pleural effusions. No subdiaphragmatic free air or pneumothorax. The trachea is midline. Moderate calcified atherosclerotic disease. IMPRESSION: Persistent cardiomegaly. Endotracheal tube in good position. Moderate interstitial thickening with bibasilar nodular consolidation and small bilateral pleural effusions The orogastric tube appears to extend beyond the confines of the gastric lumen, possibly artifactual.
[2017-09-18] MEDS: Albuterol-Ipratrop 3 mg / 0.5 (3 ml) UD IH SCH ×6 (01:00→20:30)
[2017-09-18 01:51] LABS: VENOUS BLOOD GAS BASE EXCESS -1.9 mmol/L (0.0-2.0); VENOUS BLOOD PH 7.33 (7.32-7.43)
--- NOTE | 2017-09-18 03:23 | PCM.SEPTIC ---
<KishanAngeline - Last Filed: 09/18/17 07:32> Sepsis Progress Note - Reassessment Type Date of Evaluation: 09/18/17 Time of Evaluation: 03:23 Reassessment Type: Non-invasive reassessment - Non Invasive Reassessment Were the most recent vital sign reviewed: Yes Vital Sign (Latest): Temp Pulse Resp BP Pulse Ox 100.6 F H 88 18 95/46 L 98 09/17/17 21:18 09/17/17 22:57 09/17/17 22:57 09/17/17 22:57 09/17/17 22:57 Cardiovascular: Yes: Regular Rate, Rhythm Respiratory: Yes: Decreased Breath Sounds, Rhonchi Capillary Refill: Normal (Less than 2 sec) Skin: Normal Color, Warm, Dry <Lan Franco - Last Filed: 09/19/17 02:20> Sepsis Progress Note - Non Invasive Reassessment Vital Sign (Latest): Temp Pulse Resp BP Pulse Ox 98.7 F 61 17 104/46 L 100 09/18/17 16:30 09/18/17 18:00 09/18/17 16:14 09/18/17 16:14 09/18/17 16:14 Attending/Attestation - Attestation I have personally seen and examined this patient.: No I have fully participated in the care of the patient.: Yes I have reviewed all pertinent clinical information, including history, physical exam and plan: Yes
[2017-09-18 04:02] VITALS: BMI 22.8
[2017-09-18] MEDS ORDERED: Chlorhexidine 0.12% Oral Sol 480 ml Bot PO PRN (04:16)
--- NOTE | 2017-09-18 05:00 | CP.PCM.CON ---
<Pradeep Arias - Last Filed: 09/18/17 04:57> History of Present Illness - History of Present Illness History of Present Illness: Pradeep Arias D.O. PGY-3, Critical Care Consultation 77 year old female with a PMH of hypertension, hyperlipidemia, non-insulin dependent diabetes, and hypothyroidism, who presented to the [facility] on 09/18 for severe respiratory distress that began before arrival. Patient was intubated in the ER for respiratory distress and the information was obtained from the daughter who was present at bedside. Patient and daughter were recently in [place] together and she had a lot of constipation. Daughter states that they returned Monday and since then she was doing well, but while the patient was with the granddaughter she had some issues with SOB and EMS was called. Patient was coming out of the bathroom when she started to have these complaints. Otherwise no other information available. PMH: as above PSH: reviewed SH: no tobacco, illicits or EtOH FH: noncontributory Meds: reviewed Allergies: iodinated contrast Review of Systems - Review of Systems Systems not reviewed;Unavailable: Intubated Past Patient History - Infectious Disease Hx of Infectious Diseases: None - Tetanus Immunizations Tetanus Immunization: Unknown - Past Social History Smoking Status: Unknown If Ever Smoked - CARDIAC Hx Hypertension: Yes - PULMONARY Other/Comment: smoker - NEUROLOGICAL Hx Dizziness: Yes (vertigo) - HEENT Hx HEENT Problems: No Other/Comment: does not recall ringing in ears and head - RENAL Hx Chronic Kidney Disease: No - ENDOCRINE/METABOLIC Hx Diabetes Mellitus Type 2: Yes Hx Hypothyroidism: Yes - HEMATOLOGICAL/ONCOLOGICAL Hx Blood Disorders: No - INTEGUMENTARY Hx Dermatological Problems: No - MUSCULOSKELETAL/RHEUMATOLOGICAL Hx Falls: No - GASTROINTESTINAL Hx Gastrointestinal Disorders: Yes (dx hiatal hernia 25 yrs ago) Hx Gastroesophageal Reflux: Yes - GENITOURINARY/GYNECOLOGICAL Hx Genitourinary Disorders: No - PSYCHIATRIC Hx Psychophysiologic Disorder: No Hx Depression: Yes Hx Emotional Abuse: No Hx Physical Abuse: No - SURGICAL HISTORY Hx Appendectomy: Yes Hx Hysterectomy: Yes (partial hystrectomy 1980) - ANESTHESIA Hx Anesthesia Reactions: Yes Hx Malignant Hyperthermia: No Meds Allergies/Adverse Reactions: Allergies Allergy/AdvReac Type Severity Reaction Status Date / Time Iodinated Contrast- Oral and Allergy ITCHING Verified 04/22/17 14:18 IV Dye - Medications Medications: Current Medications Albuterol/Ipratropium (Duoneb 3 Mg/0.5 Mg (3 Ml) Ud) 3 ml IH [id number] SUSAN Albuterol/Ipratropium (Duoneb 3 Mg/0.5 Mg (3 Ml) Ud) 3 ml IH Q2H PRN PRN Reason: Shortness of Breath Chlorhexidine Gluconate (Peridex) 15 ml PO Q4 PRN PRN Reason: ORAL CARE Propofol (Diprivan) 1,000 mg in 100 mls @ 1.837 mls/hr IV .Q24H PRN; Protocol; 5 MCG/KG/MIN PRN Reason: TITRATE PER MD ORDER Last Admin: 09/18/17 00:00 Dose: 60 mcg/kg/min, 22.045 mls/hr Cefepime HCl (Maxipime 1gm) 1 gm in 100 mls @ 100 mls/hr IVPB Q24H SUSAN PRN Reason: Protocol Last Admin: 09/17/17 21:31 Dose: 100 mls/hr Meropenem 1 gm/ Dextrose 100 mls @ 100 mls/hr IVPB Q12 SUSAN PRN Reason: Protocol Stop: 09/18/17 10:59 Vancomycin HCl (Vancomycin 1gm) 1 gm in 250 mls @ 167 mls/hr IVPB DAILY SUSAN PRN Reason: Protocol Pantoprazole Sodium (Protonix Inj) 40 mg IVP DAILY [facility] Physical Exam - Constitutional Appears: Non-toxic, No Acute Distress - Head Exam Head Exam: ATRAUMATIC, NORMOCEPHALIC - Eye Exam Eye Exam: PERRL. absent: Scleral icterus - ENT Exam ENT Exam: Mucous Membranes Moist - Neck Exam Neck exam: Positive for: Normal Inspection. Negative for: Tenderness, Thyromegaly - Respiratory Exam Respiratory Exam: Rhonchi. absent: Rales, Wheezes - Cardiovascular Exam Cardiovascular Exam: RRR, +S1, +S2. absent: Gallop, Rubs, Systolic Murmur - GI/Abdominal Exam GI & Abdominal Exam: Normal Bowel Sounds, Soft. absent: Distended, Tenderness - Extremities Exam Extremities exam: Positive for: pedal pulses present. Negative for: calf tenderness, tenderness - Neurological Exam Additional comments: sedated, moves all extremities spontaneously, nonfocal - Skin Skin Exam: Dry, Warm Results - Vital Signs Recent Vital Signs: Last Vital Signs Temp 99 F 09/18/17 03:14 Pulse 71 09/18/17 04:24 Resp 16 09/18/17 04:24 BP 91/69 L 09/18/17 04:24 Pulse Ox 100 09/18/17 04:24 - Labs Result Diagrams: 09/17/17 20:50 09/17/17 20:50 Labs: Laboratory Results - last 24 hr 09/17/17 09/17/17 09/18/17 21:25 22:00 01:00 pCO2 39 pO2 338.0 H HCO3 20.1 L ABG pH 7.32 L ABG Total CO2 21.3 L ABG O2 Saturation 99.9 H ABG Base Excess -5.6 L ABG Potassium 2.8 L VBG pH VBG pCO2 VBG HCO3 VBG Total CO2 VBG O2 Sat (Calc) VBG Base Excess VBG Potassium Sodium 144.0 Chloride 115.0 H Glucose 239 H Lactate 2.4 H FiO2 100.0 Lactic Acid 2.0 Arterial Blood Potassium 2.8 L Venous Blood Potassium Urine Color Yellow Urine Appearance Clear Urine pH 6.0 Ur Specific [place] >= 1.030 Urine Protein 30 H Urine Glucose (UA) 500 H Urine Ketones Trace H Urine Blood Negative Urine Nitrate Negative Urine Bilirubin Negative Urine Urobilinogen 0.2 Ur Leukocyte Esterase Negative Urine RBC 0 - 2 Urine WBC 0 - 2 Ur Epithelial Cells 0 - 2 Urine Bacteria Trace 09/18/17 01:15 pCO2 pO2 71 H HCO3 ABG pH ABG Total CO2 ABG O2 Saturation ABG Base Excess ABG Potassium VBG pH 7.33 VBG pCO2 46.0 VBG HCO3 24.3 VBG Total CO2 25.7 VBG O2 Sat (Calc) 95.9 H VBG Base Excess -1.9 L VBG Potassium 3.5 L Sodium 143.0 Chloride 111.0 H Glucose 267 H Lactate 2.2 H FiO2 21.0 Lactic Acid Arterial Blood Potassium Venous Blood Potassium 3.5 L Urine Color Urine Appearance Urine pH Ur Specific [place] Urine Protein Urine Glucose (UA) Urine Ketones Urine Blood Urine Nitrate Urine Bilirubin Urine Urobilinogen Ur Leukocyte Esterase Urine RBC Urine WBC Ur Epithelial Cells Urine Bacteria Assessment & Plan - Assessment and Plan (Free Text) Assessment: 77 year old female with a PMH of hypertension, hyperlipidemia, non-insulin dependent diabetes, and hypothyroidism, who presented for severe respiratory distress that began before arrival, found to be septic and intubated for respiratory distress Plan: Neurological Nonfocal, sedated Daily weaning trials Cardiovascular EKG revealed new ST depression on lateral leads Cardio Dr. Edwards consulted Trops to be trended Echo ordered Hemodynamically stable Maintain MAP >65 Cont to monitor Pulmnologic Respiratory distress, intubated, PRVC 450/16/5/40% D Dimer elevated, Chest CT: Moderate interstitial thickening with bibasilar nodular consolidation and small bilateral pleural effusions Repeat ABG in the AM Nebs susan and prn Daily sedation trial Daily weaning trial Maintain O2Sat >92% GI No acute issues Cont GI ppx Nephro/Electrolytes Monitor IxOs No elevation in BUN or Cr Cont IV hydration F/U AM CMP Heme No active bleeding HD stable F/U AM CBC ID / SIRS fever + leukocytosis and pulmonary origin of infection = sepsis Started vancomycin and meropenem ID Dr. Teixeira consulted Procal pending Monitoring BP Endo Known diabetic not on insulin Holding oral hypoglycemics RISS - med and accuchecks Q4h GI/DVT ppx: protonix/Lovenox SC Patient was seen and examined and case was discussed at length with attending physician. - Date & Time Date: 09/18/17 Time: 02:45 <Michael Arcos MD - Last Filed: 09/22/17 08:41> Meds - Medications Medications: Current Medications Albuterol/Ipratropium (Duoneb 3 Mg/0.5 Mg (3 Ml) Ud) 3 ml IH Q2H PRN PRN Reason: Shortness of Breath Last Admin: 09/21/17 10:00 Dose: 3 ml Albuterol/Ipratropium (Duoneb 3 Mg/0.5 Mg (3 Ml) Ud) 3 ml IH [id number] [facility] Alprazolam (Xanax) 0.25 mg PO Q6H SUSAN PRN Reason: Protocol Stop: 09/29/17 07:16 Aspirin (Ecotrin) 81 mg PO DAILY [facility] Last Admin: 09/21/17 11:36 Dose: 81 mg Bacitracin (Bacitracin) 0 gm TOP DAILY [facility] Last Admin: 09/21/17 09:31 Dose: 1 applic Chlorhexidine Gluconate (Peridex) 15 ml PO Q4 PRN PRN Reason: ORAL CARE Clopidogrel Bisulfate (Plavix) 75 mg PO DAILY [facility] Enoxaparin Sodium (Lovenox) 60 mg SC Q12H SUSAN PRN Reason: Protocol Last Admin: 09/21/17 21:01 Dose: 60 mg Furosemide (Lasix) 40 mg IVP Q12 [facility] Last Admin: 09/21/17 21:00 Dose: 40 mg Meropenem 1 gm/ Dextrose 100 mls @ 100 mls/hr IVPB Q8 SUSAN PRN Reason: Protocol Stop: 09/25/17 14:01 Last Admin: 09/22/17 05:04 Dose: 100 mls/hr Vancomycin HCl (Vancomycin 1gm) 1 gm in 250 mls @ 167 mls/hr IVPB Q12 SUSAN PRN Reason: Protocol Last Admin: 09/21/17 21:01 Dose: 167 mls/hr Doxycycline Hyclate 100 mg/ (Sodium Chloride) 100 mls @ 100 mls/hr IVPB Q12 SUSAN PRN Reason: Protocol Last Admin: 09/21/17 23:47 Dose: 100 mls/hr Propofol (Diprivan) 1,000 mg in 100 mls @ 1.932 mls/hr IV .Q24H PRN; Protocol; 5 MCG/KG/MIN PRN Reason: TITRATE PER MD ORDER Last Titration: 09/21/17 08:09 Dose: 0 mcg/kg/min, 0 mls/hr Midazolam 100 mg/100ml in NS (Midazolam 100 Mg/100ml In Ns) 100 mg in 100 mls @ 2 mls/hr IV .Q24H PRN; Protocol; 2 MG/HR PRN Reason: Agitation Last Admin: 09/19/17 17:18 Dose: 2 mg/hr, 2 mls/hr Insulin Human Regular (Humulin R Med) 0 units SC Q6 SUSAN PRN Reason: Protocol Last Admin: 09/22/17 06:30 Dose: Not Given Metoprolol Tartrate (Lopressor) 25 mg PO BID [facility] Last Admin: 09/21/17 17:30 Dose: 25 mg Pantoprazole Sodium (Protonix Inj) 40 mg IVP DAILY [facility] Last Admin: 09/21/17 09:32 Dose: 40 mg Polyethylene Glycol (Miralax) 17 gm NG BID [facility] Last Admin: 09/21/17 17:32 Dose: 17 gm Results - Vital Signs Recent Vital Signs: Last Vital Signs Temp 98 F 09/22/17 04:00 Pulse 69 09/22/17 06:30 Resp 27 H 09/22/17 06:30 BP 111/49 L 09/22/17 05:26 Pulse Ox 100 09/22/17 06:30 - Labs Result Diagrams: 09/22/17 06:30 09/22/17 06:30 Labs: Laboratory Results - last 24 hr 09/21/17 09/21/17 09/21/17 07:51 11:26 16:32 WBC RBC Hgb Hct MCV MCH MCHC RDW Plt Count MPV Gran % Lymph % (Auto) Dickenson % (Auto) Eos % (Auto) Baso % (Auto) Gran # Lymph # Dickenson # Eos # Baso # pCO2 pO2 HCO3 ABG pH ABG Total CO2 ABG O2 Saturation ABG O2 Content ABG Base Excess ABG Hemoglobin ABG Carboxyhemoglobin POC ABG HHb (Measured) ABG Methemoglobin ABG O2 Capacity Hgb O2 Saturation FiO2 Sodium Potassium Chloride Carbon Dioxide Anion Gap BUN Creatinine Est GFR ( Amer) Est GFR (Non-Af Amer) POC Glucose (mg/dL) 160 H 200 H 191 H Random Glucose Calcium Total Bilirubin AST ALT Alkaline Phosphatase Total Protein Albumin Globulin Albumin/Globulin Ratio 09/22/17 09/22/17 09/22/17 00:05 05:30 06:30 WBC 9.0 RBC 4.36 Hgb 12.3 Hct 37.7 MCV 86.5 MCH 28.2 MCHC 32.6 RDW 15.5 H Plt Count 291 MPV 11.7 H Gran % 64.2 Lymph % (Auto) 23.3 Dickenson % (Auto) 9.9 H Eos % (Auto) 2.2 Baso % (Auto) 0.4 Gran # 5.78 Lymph # 2.1 Dickenson # 0.9 H Eos # 0.2 Baso # 0.04 pCO2 28 L pO2 123.0 H HCO3 27.5 ABG pH 7.60 H ABG Total CO2 28.4 H ABG O2 Saturation 99.2 H ABG O2 Content 16.7 ABG Base Excess 6.4 H ABG Hemoglobin 12.3 ABG Carboxyhemoglobin 2.2 H POC ABG HHb (Measured) 0.8 ABG Methemoglobin 1.3 ABG O2 Capacity 16.8 Hgb O2 Saturation 95.7 FiO2 24.0 Sodium Potassium Chloride Carbon Dioxide Anion Gap BUN Creatinine Est GFR ( Amer) Est GFR (Non-Af Amer) POC Glucose (mg/dL) 171 H Random Glucose Calcium Total Bilirubin AST ALT Alkaline Phosphatase Total Protein Albumin Globulin Albumin/Globulin Ratio 09/22/17 09/22/17 06:30 06:46 WBC RBC Hgb Hct MCV MCH MCHC RDW Plt Count MPV Gran % Lymph % (Auto) Dickenson % (Auto) Eos % (Auto) Baso % (Auto) Gran # Lymph # Dickenson # Eos # Baso # pCO2 pO2 HCO3 ABG pH ABG Total CO2 ABG O2 Saturation ABG O2 Content ABG Base Excess ABG Hemoglobin ABG Carboxyhemoglobin POC ABG HHb (Measured) ABG Methemoglobin ABG O2 Capacity Hgb O2 Saturation FiO2 Sodium 144 Potassium 4.0 Chloride 105 Carbon Dioxide 31 Anion Gap 13 BUN 33 H Creatinine 0.8 Est GFR ( Amer) > 60 Est GFR (Non-Af Amer) > 60 POC Glucose (mg/dL) 178 H Random Glucose 168 H Calcium 10.1 Total Bilirubin 0.9 AST 45 H D ALT 53 Alkaline Phosphatase 62 Total Protein 6.9 Albumin 3.7 Globulin 3.2 Albumin/Globulin Ratio 1.2 Attending/Attestation - Attestation I have personally seen and examined this patient.: Yes I have fully participated in the care of the patient.: Yes I have reviewed all pertinent clinical information: Yes Notes (Text): -I agree with the above ICU consult note completed by the resident physician. -Briefly, the patient is a 77 year old woman being admitted to the ICU with acute respiratory failure, Sepsis and PNA. Empiric IV Antibiotics and ID consults have been placed. Also, cards has been consulted.
[2017-09-18] MEDS: Insulin Reg-MEDIUM-Coverage SC SCH ×3 (06:30→13:04)
[2017-09-18 06:37] LABS: GRAN % 91.3 % (50.0-68.0); HEMATOCRIT 33.7 % (36.0-48.0); LYMPH # 0.6 (1.2-3.4); LYMPH % 5.3 % (22.0-35.0); MEAN CELL VOLUME 86.4 fl (80.0-105.0); MEAN CORPUSCULAR HEMOGLOBIN 28.2 pg (25.0-35.0); MEAN CORPUSCULAR HGB CONC 32.6 g/dl (31.0-37.0); MEAN PLATELET VOLUME 12.7 fl (7.0-11.0); MONO # 0.4 (0.1-0.6); MONO % 3.4 % (1.0-6.0); PLATELET COUNT 201 10^3/uL (120.0-450.0); RED CELL DISTRIBUTION WIDTH 15.9 % (11.5-14.5); WHITE BLOOD COUNT 10.8 10^3/ul (4.5-11.0)
[2017-09-18 06:44] LABS: GFR AFRICAN-AMERICAN > 60
[2017-09-18 06:45] LABS: ARTERIAL BLOOD GAS HCO3 21.6 mmol/L (21-28); ARTERIAL BLOOD GAS O2 CAPACITY 13.5 mL/dl (16-24); ARTERIAL BLOOD GAS O2 CONTENT 13.4 ML/dl (15-23); ARTERIAL BLOOD GAS PH 7.41 (7.35-7.45); ARTERIAL BLOOD HGB O2 SAT 96.3 % (95.0-98.0); CARBOXYHEMOGLOBIN 1.6 % (0.5-1.5); METHEMOGLOBIN 1.1 % (0.0-3.0)
[2017-09-18 06:59] LABS: ALB/GLOB RATIO 1.3 (1.1-1.8); ALKALINE PHOSPHATASE 50 U/L (38-126); ALT/SGPT 43 U/L (7-56); AST/SGOT 31 U/L (14-36); BILIRUBIN,TOTAL 0.7 mg/dL (0.2-1.3); BLOOD UREA NITROGEN 24 mg/dL (7-21); CALCIUM 9.3 mg/dL (8.4-10.5); CARBON DIOXIDE 24 mmol/L (21-33); CHLORIDE 111 mmol/L (95-110); GLUCOSE,RANDOM 287 mg/dL (70-110); MAGNESIUM 2.2 mg/dL (1.7-2.2); PHOSPHOROUS 2.7 mg/dL (2.5-4.5); POTASSIUM 3.6 mmol/L (3.6-5.0); SODIUM 143 mmol/L (132-148)
[2017-09-18] MEDS: Propofol 10 mg/ml 1,000 MG/100 ML VIAL IV PRN ×4 (07:00→22:17)
[2017-09-18 07:25] LABS: INR 1.14 (0.93-1.08); PARTIAL THROMBOPLASTIN TIME 28.1 Seconds (25.1-36.5)
[2017-09-18 07:48] LABS: FREE T4 1.86 ng/dL (0.78-2.19)
[2017-09-18 08:02] LABS: THYROID STIMULATING HORMONE 0.11 mIU/mL (0.46-4.68)
--- NOTE | 2017-09-18 08:14 | RAD ---
HISTORY: sob COMPARISON: 04/22/2017 FINDINGS: LUNGS: Extensive interstitial infiltrates are seen consistent with CHF. There is vascular congestion. Endotracheal tube is in satisfactory position PLEURA: No significant pleural effusion identified, no pneumothorax apparent. CARDIOVASCULAR: Normal. OSSEOUS STRUCTURES: No significant abnormalities. VISUALIZED UPPER ABDOMEN: Normal. OTHER FINDINGS: None. IMPRESSION: Extensive interstitial infiltrates are seen consistent with CHF. There is vascular congestion. Endotracheal tube is in satisfactory position
[2017-09-18 08:52] LABS: TROPONIN I 0.08 ng/mL
[2017-09-18] MEDS: Vancomycin 1gm in NS 250ml 1 GM/250 ML BAG IVPB SCH ×2 (09:16→23:00)
[2017-09-18 09:19] LABS: ANISOCYTOSIS SLIGHT; BAND 2 % (0-2); HYPOCHROMIA SLIGHT; NEUTROPHIL 91 % (50.0-70.0); PLATELET ESTIMATE NORMAL (NORMAL)
[2017-09-18] MEDS ORDERED: Vancomycin 1gm in NS 250ml 1 GM/250 ML BAG IVPB SCH (10:00)
[2017-09-18] MEDS ORDERED: Meropenem 1 GM in Dextrose 5% In Water 100 ML IVPB SCH (10:00)
[2017-09-18] MEDS ORDERED: Enoxaparin 40 mg Syringe SC SCH (10:00)
--- NOTE | 2017-09-18 10:12 | CARD ---
APPROVED REPORT EKG Measurement Heart [id number] <Conclusion> Sinus tachycardia Possible Left atrial enlargement ST & T wave abnormality, consider lateral ischemia Abnormal ECG
[2017-09-18] MEDS: Midazolam 2 MG/2 ML VIAL IVP PRN ×3 (10:45→21:18)
--- NOTE | 2017-09-18 10:47 | HP ---
CHIEF COMPLAINT AND HISTORY OF PRESENT ILLNESS: This is a 77-year-old female who was come into the hospital with past medical history of hypertension, dyslipidemia, diabetes type 2 and hypothyroidism. The patient was in her usual state and had come from her bathroom at home, she started developing severe shortness of breath. She said that she was having a difficulty in breathing. The patient was brought into the ER emergently. She was having significant respiratory distress and the patient was intubated. They had recently travel to [place], she had been complaining of constipation, otherwise, the patient was doing well. The patient is intubated, so she is not able to give much information. Most of the information was taken from talking to the ER physician, the nursing staff, and the patient's daughter at the bedside. The patient had O2 saturation of 65%. She was placed in the CPAP, but her blood pressure increased significantly, it was not responding. ALLERGIES: IODINATED CONTRAST. PAST MEDICAL HISTORY: 1. Hypertension. 2. Dyslipidemia. 3. Diabetes type 2. 4. Hypothyroidism. PAST SURGICAL HISTORY: Not able to assess. FAMILY HISTORY: Unable to assess. SOCIAL HISTORY: She does not smoke or drink. PHYSICAL EXAMINATION: VITAL SIGNS: She has a temperature of 100.6, pulse is 62, blood pressure is 138/53 and repeat was 96/43. O2 saturation is 99% and FiO2 is 40%. Height is 5 feet 6 inches, weight is 142 pounds, and BMI is 22.9. GENERAL: The patient lying in bed, uncomfortable, and in no acute distress. HEENT: Atraumatic and normocephalic. Anicteric sclerae. Moist mucosa. Ventana conjunctivae. No oral lesions. Positive for ETT. Eye exam is limited because of the patient's condition. NECK: No JVD, anterior and posterior adenopathy, thyromegaly, or bruits. CARDIOVASCULAR: S1 and S2 regular. No murmur, rubs, or gallop. LUNGS: Clear to auscultation bilaterally. No wheezes, rales, or rhonchi. ABDOMEN: Bowel sounds are positive. Soft, nontender and nondistended. No hepatosplenomegaly. No rebound. No guarding EXTREMITIES: No cyanosis, clubbing, or edema. NEUROLOGIC: Unable to assess because of the patient's condition. PSYCHIATRIC: Unable to assess. GENITOURINARY: No CVA tenderness. VASCULAR: 2+ pulses in the carotid pulses and pedal pulses. SKIN: No erythema or nodules SPINE: Shows normal curvature. LABORATORY DATA: White count is 19.2, hemoglobin is 13.1, repeat white count is 10.8, and platelet count is 363. INR is 1.05 and D-dimer is 515. ABGs done and shows pH of 7.32 with pCO2 of 39, bicarbonate is 20 on the ABG, it is 25 on the chemistry, with anion gap of 17. Magnesium is 1.6, TSH is 0.11, and repeat magnesium is 2.2. Urine shows glucose is 500, ketones are trace. Toxicology shows alcohol is less than 10. Troponin is 0.02. IMAGING DATA: CT of the chest done shows persistent cardiomegaly, endotracheal tube in good position. There is moderate interstitial thickening with bibasilar nodule consolidation and small bilateral pleural effusion. DIAGNOSTIC DATA: EKG shows sinus tachycardia at 127, nonspecific ST changes. Chest x-ray shows extensive interstitial tissue infiltrates consisting with CHF. ASSESSMENT: 1. Sepsis. 2. Diabetes type 2. 3. Hypertension. 4. Dyslipidemia. 5. Hypomagnesemia, improved. 6. Respiratory failure on ventilator. PLAN: The patient is going to be admitted the hospital, she is in the ICU. She is critical ill with shortness of breath and elevated white count. The patient has been started on nebulizer treatments. She is on antibiotics with doxycycline. She is on Lovenox for DVT prophylaxis. The patient is on chlorhexidine and she is going to continue with meropenem for antibiotics. She is on vancomycin. I did speak to the patient's daughter to give an update on the patient's diagnosis and plan of care. An echo has been ordered. Repeat troponin has been ordered as well. A rapid flu is still uncollected. Blood cultures have been ordered. I will order urine cultures. I will repeat the patient's blood work tomorrow. Overall prognosis is guarded. Dominic Gary MD
--- NOTE | 2017-09-18 10:55 | CP.PCM.CON ---
History of Present Illness - History of Present Illness History of Present Illness: 77 year old female with PMH of HTN, dyslipidemia, DM, hypothyroidism was brought in to [facility] because of sudden onset respiratory distress. As per daughter, the patient was with her in [place] last week and had been doing well except that she has been having cough for the past 2 weeks which was dry. As per daughter she did not have fevers, no vomiting, no diarrhea, was not complaining of sore throat. She was apparently exposed to some kids with probable colds over the past 2 weeks. She was complaining of fatigue as day prior to admission. In the ED, she was intubated and sent to the ICU for closer observation. CT chest shows probable consolidation on both lower lobes with bilateral pleural effusions. As per daughter, she is exposed to "backyard cats" at home. Aside from [place], she has not been outside of [place] in the past 3 months. Infectious diseases consult is requested to further evaluate and manage. Review of Systems - Review of Systems All systems: reviewed and no additional remarkable complaints except (as per HPI ) Past Patient History - Infectious Disease Hx of Infectious Diseases: None - Tetanus Immunizations Tetanus Immunization: Unknown - Past Social History Smoking Status: Unknown If Ever Smoked - CARDIAC Hx Hypertension: Yes - PULMONARY Other/Comment: smoker - NEUROLOGICAL Hx Dizziness: Yes (vertigo) - HEENT Hx HEENT Problems: No Other/Comment: does not recall ringing in ears and head - RENAL Hx Chronic Kidney Disease: No - ENDOCRINE/METABOLIC Hx Diabetes Mellitus Type 2: Yes Hx Hypothyroidism: Yes - HEMATOLOGICAL/ONCOLOGICAL Hx Blood Disorders: No - INTEGUMENTARY Hx Dermatological Problems: No - MUSCULOSKELETAL/RHEUMATOLOGICAL Hx Falls: No - GASTROINTESTINAL Hx Gastrointestinal Disorders: Yes (dx hiatal hernia 25 yrs ago) Hx Gastroesophageal Reflux: Yes - GENITOURINARY/GYNECOLOGICAL Hx Genitourinary Disorders: No - PSYCHIATRIC Hx Psychophysiologic Disorder: No Hx Depression: Yes Hx Emotional Abuse: No Hx Physical Abuse: No - SURGICAL HISTORY Hx Appendectomy: Yes Hx Hysterectomy: Yes (partial hystrectomy 1980) - ANESTHESIA Hx Anesthesia Reactions: Yes Hx Malignant Hyperthermia: No Meds Allergies/Adverse Reactions: Allergies Allergy/AdvReac Type Severity Reaction Status Date / Time Iodinated Contrast- Oral and Allergy ITCHING Verified 04/22/17 14:18 IV Dye - Medications Medications: Current Medications Albuterol/Ipratropium (Duoneb 3 Mg/0.5 Mg (3 Ml) Ud) 3 ml IH [id number] [facility] Last Admin: 09/18/17 03:15 Dose: 3 ml Albuterol/Ipratropium (Duoneb 3 Mg/0.5 Mg (3 Ml) Ud) 3 ml IH Q2H PRN PRN Reason: Shortness of Breath Chlorhexidine Gluconate (Peridex) 15 ml PO Q4 PRN PRN Reason: ORAL CARE Enoxaparin Sodium (Lovenox) 40 mg SC DAILY SUSAN PRN Reason: Protocol Propofol (Diprivan) 1,000 mg in 100 mls @ 1.837 mls/hr IV .Q24H PRN; Protocol; 5 MCG/KG/MIN PRN Reason: TITRATE PER MD ORDER Last Admin: 09/18/17 00:00 Dose: 60 mcg/kg/min, 22.045 mls/hr Potassium Chloride 20 meq/ (Sodium Chloride) 1,010 mls @ 100 mls/hr IV .Q10H6M SUSAN Meropenem 1 gm/ Dextrose 100 mls @ 100 mls/hr IVPB Q8 SUSAN PRN Reason: Protocol Stop: 09/25/17 14:01 Vancomycin HCl (Vancomycin 1gm) 1 gm in 250 mls @ 167 mls/hr IVPB Q12 SUSAN PRN Reason: Protocol Doxycycline Hyclate 100 mg/ (Sodium Chloride) 100 mls @ 100 mls/hr IVPB Q12 SUSAN PRN Reason: Protocol Insulin Human Regular (Humulin R Med) 0 units SC Q4H SUSAN PRN Reason: Protocol Pantoprazole Sodium (Protonix Inj) 40 mg IVP DAILY [facility] Physical Exam - Constitutional Appears: Other (intubated, sedated) - Head Exam Head Exam: NORMAL INSPECTION - ENT Exam Additional comments: ET tube in place - Neck Exam Neck exam: Negative for: Meningismus - Respiratory Exam Respiratory Exam: Decreased Breath Sounds, Rales (at the bases bilaterally) - Cardiovascular Exam Cardiovascular Exam: +S1, +S2 - GI/Abdominal Exam GI & Abdominal Exam: Soft. absent: Tenderness - Extremities Exam Extremities exam: Positive for: normal inspection. Negative for: pedal edema, tenderness Results - Vital Signs Recent Vital Signs: Last Vital Signs Temp 99 F 09/18/17 03:14 Pulse 66 09/18/17 06:02 Resp 25 H 09/18/17 06:02 BP 96/43 L 09/18/17 05:31 Pulse Ox 99 09/18/17 06:02 - Labs Result Diagrams: 09/18/17 05:30 09/18/17 05:30 Labs: Laboratory Results - last 24 hr 09/17/17 09/17/17 09/18/17 21:25 22:00 01:00 pCO2 39 pO2 338.0 H HCO3 20.1 L ABG pH 7.32 L ABG Total CO2 21.3 L ABG O2 Saturation 99.9 H ABG O2 Content ABG Base Excess -5.6 L ABG Hemoglobin ABG Carboxyhemoglobin POC ABG HHb (Measured) ABG Methemoglobin ABG O2 Capacity ABG Potassium 2.8 L VBG pH VBG pCO2 VBG HCO3 VBG Total CO2 VBG O2 Sat (Calc) VBG Base Excess VBG Potassium Hgb O2 Saturation Sodium 144.0 Chloride 115.0 H Glucose 239 H Lactate 2.4 H FiO2 100.0 Lactic Acid 2.0 Arterial Blood Potassium 2.8 L Venous Blood Potassium Urine Color Yellow Urine Appearance Clear Urine pH 6.0 Ur Specific [place] >= 1.030 Urine Protein 30 H Urine Glucose (UA) 500 H Urine Ketones Trace H Urine Blood Negative Urine Nitrate Negative Urine Bilirubin Negative Urine Urobilinogen 0.2 Ur Leukocyte Esterase Negative Urine RBC 0 - 2 Urine WBC 0 - 2 Ur Epithelial Cells 0 - 2 Urine Bacteria Trace 09/18/17 09/18/17 01:15 06:30 pCO2 34 L pO2 71 H 101.0 H HCO3 21.6 ABG pH 7.41 ABG Total CO2 22.6 ABG O2 Saturation 99.0 H ABG O2 Content 13.4 L ABG Base Excess -2.6 L ABG Hemoglobin 9.8 L ABG Carboxyhemoglobin 1.6 H POC ABG HHb (Measured) 1.0 ABG Methemoglobin 1.1 ABG O2 Capacity 13.5 L ABG Potassium VBG pH 7.33 VBG pCO2 46.0 VBG HCO3 24.3 VBG Total CO2 25.7 VBG O2 Sat (Calc) 95.9 H VBG Base Excess -1.9 L VBG Potassium 3.5 L Hgb O2 Saturation 96.3 Sodium 143.0 Chloride 111.0 H Glucose 267 H Lactate 2.2 H FiO2 21.0 40.0 Lactic Acid Arterial Blood Potassium Venous Blood Potassium 3.5 L Urine Color Urine Appearance Urine pH Ur Specific [place] Urine Protein Urine Glucose (UA) Urine Ketones Urine Blood Urine Nitrate Urine Bilirubin Urine Urobilinogen Ur Leukocyte Esterase Urine RBC Urine WBC Ur Epithelial Cells Urine Bacteria Assessment & Plan - Assessment and Plan (Free Text) Plan: Assessment Consider severe sepsis with hypoxic and ventilator-dependent respiratory failure due to bilateral lower lobe pneumonia, severe community-acquired pneumonia HTN dyslipidemia DM hypothyroidism Plan Started patient on Vancomycin, Merrem and Doxycycline pending sputum cx, blood cx, PCT, urine Legionella Ag; will also get rapid Influenza test; WBC count was elevated on admission will monitor clinical response discussed with family and ICU team
--- NOTE | 2017-09-18 12:27 | CP.CCUPN ---
<José Miguel Alexandre - Last Filed: 09/18/17 11:56> CCU Subjective - Physician Review Subjective (Free Text): Patient seen and examined at bedside. Resting comfortably in bed. No acute overnight events. Patient is intubated and sedated. Family at bedside. ROS cannot be attained at this time due to altered mental status. 09/18/17 11:56 CCU Objective - Vital Signs / Intake & Output Vital Signs (Last 4 hours): Vital Signs Pulse Resp BP Pulse Ox 09/18/17 09:13 68 16 115/51 L 98 09/18/17 09:10 68 16 100 09/18/17 09:00 64 16 111/48 L 98 09/18/17 08:50 63 16 97 09/18/17 08:40 64 16 97 09/18/17 08:30 64 16 96 09/18/17 08:20 63 16 97 09/18/17 08:10 63 16 97 09/18/17 08:00 64 16 105/49 L 95 Intake and Output (Last 8hrs): Intake & Output 09/17/17 09/18/17 09/18/17 22:59 06:59 14:59 Intake Total 700 62 Output Total 350 Balance 350 62 Weight 142 lb Intake: IV 700 62 Left Forearm 500 Oral 0 Output: Urine 350 Urethral ([place]) 350 Stool 0 Other: Voiding Method Indwelling Catheter - Physical Exam Head: Positive for: Atraumatic, Normocephalic Pupils: Positive for: PERRL Extroacular Muscles: Positive for: EOMI Conjunctiva: Positive for: Normal Ears: Positive for: Normal Mouth: Positive for: Moist Mucous Membranes Pharnyx: Positive for: Normal. Negative for: ERYTHEMA, EXUDATE, TONSILS ENLARGED Neck: Negative for: JVD Respiratory/Chest: Positive for: Rhonchi (bilateral) Cardiovascular: Positive for: Normal S1, S2, Tachycardic. Negative for: Murmurs Abdomen: Positive for: Normal Bowel Sounds. Negative for: Tenderness, Distention, Peritoneal Signs Lower Extremity: Positive for: Normal Inspection. Negative for: Edema Neurological: Positive for: GCS=15, CN II-XII Intact, Speech Normal Skin: Positive for: Warm, Dry, Normal Color. Negative for: Rashes Psychiatric: Positive for: Alert - Medications Active Medications: Active Medications Generic Name Dose Route Start Last Admin Trade Name Freq PRN Reason Stop Dose Admin Albuterol/Ipratropium 3 ml 09/17/17 23:30 09/18/17 11:37 Duoneb 3 Mg/0.5 Mg (3 Ml) Ud IH 3 ml [id number] EDISON Administration Albuterol/Ipratropium 3 ml 09/17/17 22:33 Duoneb 3 Mg/0.5 Mg (3 Ml) Ud IH Q2H PRN Shortness of Breath Chlorhexidine Gluconate 15 ml 09/18/17 04:16 Peridex PO Q4 PRN ORAL CARE Enoxaparin Sodium 40 mg 09/18/17 10:00 09/18/17 11:03 Lovenox SC 40 mg DAILY EDISON Administration Protocol Propofol 1,000 mg in 100 mls @ 1.837 mls/hr 09/17/17 21:19 09/18/17 10:51 Diprivan IV 40 mcg/kg/min .Q24H PRN 14.696 mls/hr TITRATE PER MD ORDER Titration Protocol 5 MCG/KG/MIN Potassium Chloride 20 meq/ 1,010 mls @ 100 mls/hr 09/18/17 05:15 09/18/17 05: 30 Sodium Chloride IV 100 mls/hr .[id number] EDISON Administration Meropenem 1 gm/ Dextrose 100 mls @ 100 mls/hr 09/18/17 14:00 IVPB 09/25/17 14:01 Q8 EDISON Protocol Vancomycin HCl 1 gm in 250 mls @ 167 mls/hr 09/18/17 10:00 09/18/17 09:16 Vancomycin 1gm IVPB 167 mls/hr Q12 EDISON Administration Protocol Doxycycline Hyclate 100 mg/ 100 mls @ 100 mls/hr 09/18/17 10:00 09/18/17 10: 49 Sodium Chloride IVPB 100 mls/hr Q12 EDISON Administration Protocol Insulin Human Regular 0 units 09/18/17 05:30 09/18/17 06:30 Humulin R Med SC 2 units Q4H EDISON Administration Protocol Midazolam HCl 1 mg 09/18/17 10:28 09/18/17 11:12 Versed Inj IVP 1 mg Q2H PRN Administration Agitation Pantoprazole Sodium 40 mg 09/18/17 10:00 09/18/17 11:03 Protonix Inj IVP 40 mg DAILY EDISON Administration - Patient Studies Lab Studies: Lab Studies 09/18/17 09/18/17 09/18/17 Range/Units 10:15 06:30 06:30 WBC (4.5-11.0) 10^3/ul RBC (3.5-6.1) 10^6/uL Hgb (12.0-16.0) g/dL Hct (36.0-48.0) % MCV (80.0-105.0) fl MCH (25.0-35.0) pg MCHC (31.0-37.0) g/dl RDW (11.5-14.5) % Plt Count (120.0-450.0) 10^3/uL MPV (7.0-11.0) fl Gran % (50.0-68.0) % Lymph % (Auto) (22.0-35.0) % [place] % (Auto) (1.0-6.0) % Eos % (Auto) (1.5-5.0) % Baso % (Auto) (0.0-3.0) % Gran # (1.4-6.5) Lymph # (1.2-3.4) [place] # (0.1-0.6) Eos # (0.0-0.7) Baso # (0.0-2.0) K/mm3 Neutrophils % (Manual) (50.0-70.0) % Band Neutrophils % (0-2) % Lymphocytes % (Manual) (22.0-35.0) % Monocytes % (Manual) (1.0-6.0) % Platelet Evaluation (NORMAL) Hypochromasia Anisocytosis (manual) PT 12.6 H (9.4-12.5) SECONDS INR 1.14 H (0.93-1.08) APTT 28.1 (25.1-36.5) Seconds pCO2 (35-45) mm/Hg pO2 (80-100) mm/Hg HCO3 (21-28) mmol/L ABG pH (7.35-7.45) ABG Total CO2 (22-28) mmol.L ABG O2 Saturation (95-98) % ABG O2 Content (15-23) ML/dl ABG Base Excess (-2.0-3.0) mmol/L ABG Hemoglobin (11.7-17.4) g/dL ABG Carboxyhemoglobin (0.5-1.5) % POC ABG HHb (Measured) (0-5) % ABG Methemoglobin (0.0-3.0) % ABG O2 Capacity (16-24) mL/dl ABG Potassium (3.6-5.2) mmol/L VBG pH (7.32-7.43) VBG pCO2 (40-60) VBG HCO3 (21-28) mmol/l VBG Total CO2 (22-28) mmol.L VBG O2 Sat (Calc) (40-65) % VBG Base Excess (0.0-2.0) mmol/L VBG Potassium (3.6-5.2) mmol/L Hgb O2 Saturation (95.0-98.0) % Sodium (132-148) mmol/L Chloride (98-107) mmol/L Glucose (65-105) mg/dl Lactate (0.7-2.1) mmol/L FiO2 % Potassium (3.6-5.0) mmol/L Carbon Dioxide (21-33) mmol/L Anion Gap (10-20) BUN (7-21) mg/dL Creatinine (0.7-1.2) mg/dL Est GFR ( Amer) Est GFR (Non-Af Amer) Random Glucose (70-110) mg/dL Lactic Acid (0.7-2.1) mmol/L Calcium (8.4-10.5) mg/dL Phosphorus (2.5-4.5) mg/dL Magnesium (1.7-2.2) mg/dL Total Bilirubin (0.2-1.3) mg/dL AST (14-36) U/L ALT (7-56) U/L Alkaline Phosphatase (38-126) U/L Troponin I 0.09 ng/mL Total Protein (5.8-8.3) g/dL Albumin (3.0-4.8) g/dL Globulin gm/dL Albumin/Globulin Ratio (1.1-1.8) Free T4 1.86 (0.78-2.19) ng/dL TSH 3rd Generation 0.11 L (0.46-4.68) mIU/mL Arterial Blood Potassium (3.6-5.2) mmol/L Venous Blood Potassium (3.6-5.2) mmol/L Urine Color (YELLOW) Urine Appearance (CLEAR) Urine pH (4.7-8.0) Ur Specific [place] (1.005-1.035) Urine Protein (<30 mg/dL) mg/dL Urine Glucose (UA) (NEGATIVE) mg/dL Urine Ketones (NEGATIVE) mg/dL Urine Blood (NEGATIVE) Urine Nitrate (NEGATIVE) Urine Bilirubin (NEGATIVE) Urine Urobilinogen (<1 E.U./dL) E.U./dL Ur Leukocyte Esterase (NEGATIVE) David/uL Urine RBC (0-2) /hpf Urine WBC (0-6) /hpf Ur Epithelial Cells (0-5) /hpf Urine Bacteria (NEG) 09/18/17 09/18/17 09/18/17 Range/Units 06:30 05:30 05:30 WBC 10.8 D (4.5-11.0) 10^3/ul RBC 3.90 (3.5-6.1) 10^6/uL Hgb 11.0 L D (12.0-16.0) g/dL Hct 33.7 L (36.0-48.0) % MCV 86.4 (80.0-105.0) fl MCH 28.2 (25.0-35.0) pg MCHC 32.6 (31.0-37.0) g/dl RDW 15.9 H (11.5-14.5) % Plt Count 201 (120.0-450.0) 10^3/uL MPV 12.7 H (7.0-11.0) fl Gran % 91.3 H (50.0-68.0) % Lymph % (Auto) 5.3 L (22.0-35.0) % [place] % (Auto) 3.4 (1.0-6.0) % Eos % (Auto) 0.0 L (1.5-5.0) % Baso % (Auto) 0.0 (0.0-3.0) % Gran # 9.90 H (1.4-6.5) Lymph # 0.6 L (1.2-3.4) [place] # 0.4 (0.1-0.6) Eos # 0.0 (0.0-0.7) Baso # 0.00 (0.0-2.0) K/mm3 Neutrophils % (Manual) 91 H (50.0-70.0) % Band Neutrophils % 2 (0-2) % Lymphocytes % (Manual) 5 L (22.0-35.0) % Monocytes % (Manual) 2 (1.0-6.0) % Platelet Evaluation Normal (NORMAL) Hypochromasia Slight Anisocytosis (manual) Slight PT (9.4-12.5) SECONDS INR (0.93-1.08) APTT (25.1-36.5) Seconds pCO2 34 L (35-45) mm/Hg pO2 101.0 H (80-100) mm/Hg HCO3 21.6 (21-28) mmol/L ABG pH 7.41 (7.35-7.45) ABG Total CO2 22.6 (22-28) mmol.L ABG O2 Saturation 99.0 H (95-98) % ABG O2 Content 13.4 L (15-23) ML/dl ABG Base Excess -2.6 L (-2.0-3.0) mmol/L ABG Hemoglobin 9.8 L (11.7-17.4) g/dL ABG Carboxyhemoglobin 1.6 H (0.5-1.5) % POC ABG HHb (Measured) 1.0 (0-5) % ABG Methemoglobin 1.1 (0.0-3.0) % ABG O2 Capacity 13.5 L (16-24) mL/dl ABG Potassium (3.6-5.2) mmol/L VBG pH (7.32-7.43) VBG pCO2 (40-60) VBG HCO3 (21-28) mmol/l VBG Total CO2 (22-28) mmol.L VBG O2 Sat (Calc) (40-65) % VBG Base Excess (0.0-2.0) mmol/L VBG Potassium (3.6-5.2) mmol/L Hgb O2 Saturation 96.3 (95.0-98.0) % Sodium 143 (132-148) mmol/L Chloride 111 H (98-107) mmol/L Glucose (65-105) mg/dl Lactate (0.7-2.1) mmol/L FiO2 40.0 % Potassium 3.6 (3.6-5.0) mmol/L Carbon Dioxide 24 (21-33) mmol/L Anion Gap 12 (10-20) BUN 24 H (7-21) mg/dL Creatinine 0.8 (0.7-1.2) mg/dL Est GFR ( Amer) > 60 Est GFR (Non-Af Amer) > 60 Random Glucose 287 H (70-110) mg/dL Lactic Acid (0.7-2.1) mmol/L Calcium 9.3 (8.4-10.5) mg/dL Phosphorus 2.7 (2.5-4.5) mg/dL Magnesium 2.2 (1.7-2.2) mg/dL Total Bilirubin 0.7 (0.2-1.3) mg/dL AST 31 (14-36) U/L ALT 43 (7-56) U/L Alkaline Phosphatase 50 (38-126) U/L Troponin I 0.08 D ng/mL Total Protein 6.0 (5.8-8.3) g/dL Albumin 3.4 (3.0-4.8) g/dL Globulin 2.7 gm/dL Albumin/Globulin Ratio 1.3 (1.1-1.8) Free T4 (0.78-2.19) ng/dL TSH 3rd Generation (0.46-4.68) mIU/mL Arterial Blood Potassium (3.6-5.2) mmol/L Venous Blood Potassium (3.6-5.2) mmol/L Urine Color (YELLOW) Urine Appearance (CLEAR) Urine pH (4.7-8.0) Ur Specific [place] (1.005-1.035) Urine Protein (<30 mg/dL) mg/dL Urine Glucose (UA) (NEGATIVE) mg/dL Urine Ketones (NEGATIVE) mg/dL Urine Blood (NEGATIVE) Urine Nitrate (NEGATIVE) Urine Bilirubin (NEGATIVE) Urine Urobilinogen (<1 E.U./dL) E.U./dL Ur Leukocyte Esterase (NEGATIVE) David/uL Urine RBC (0-2) /hpf Urine WBC (0-6) /hpf Ur Epithelial Cells (0-5) /hpf Urine Bacteria (NEG) 11/13/17 11/13/17 11/12/17 Range/Units 01:15 01:00 22:00 WBC (4.5-11.0) 10^3/ul RBC (3.5-6.1) 10^6/uL Hgb (12.0-16.0) g/dL Hct (36.0-48.0) % MCV (80.0-105.0) fl MCH (25.0-35.0) pg MCHC (31.0-37.0) g/dl RDW (11.5-14.5) % Plt Count (120.0-450.0) 10^3/uL MPV (7.0-11.0) fl Gran % (50.0-68.0) % Lymph % (Auto) (22.0-35.0) % [place] % (Auto) (1.0-6.0) % Eos % (Auto) (1.5-5.0) % Baso % (Auto) (0.0-3.0) % Gran # (1.4-6.5) Lymph # (1.2-3.4) [place] # (0.1-0.6) Eos # (0.0-0.7) Baso # (0.0-2.0) K/mm3 Neutrophils % (Manual) (50.0-70.0) % Band Neutrophils % (0-2) % Lymphocytes % (Manual) (22.0-35.0) % Monocytes % (Manual) (1.0-6.0) % Platelet Evaluation (NORMAL) Hypochromasia Anisocytosis (manual) PT (9.4-12.5) SECONDS INR (0.93-1.08) APTT (25.1-36.5) Seconds pCO2 39 (35-45) mm/Hg pO2 71 H 338.0 H (80-100) mm/Hg HCO3 20.1 L (21-28) mmol/L ABG pH 7.32 L (7.35-7.45) ABG Total CO2 21.3 L (22-28) mmol.L ABG O2 Saturation 99.9 H (95-98) % ABG O2 Content (15-23) ML/dl ABG Base Excess -5.6 L (-2.0-3.0) mmol/L ABG Hemoglobin (11.7-17.4) g/dL ABG Carboxyhemoglobin (0.5-1.5) % POC ABG HHb (Measured) (0-5) % ABG Methemoglobin (0.0-3.0) % ABG O2 Capacity (16-24) mL/dl ABG Potassium 2.8 L (3.6-5.2) mmol/L VBG pH 7.33 (7.32-7.43) VBG pCO2 46.0 (40-60) VBG HCO3 24.3 (21-28) mmol/l VBG Total CO2 25.7 (22-28) mmol.L VBG O2 Sat (Calc) 95.9 H (40-65) % VBG Base Excess -1.9 L (0.0-2.0) mmol/L VBG Potassium 3.5 L (3.6-5.2) mmol/L Hgb O2 Saturation (95.0-98.0) % Sodium 143.0 144.0 (132-148) mmol/L Chloride 111.0 H 115.0 H (98-107) mmol/L Glucose 267 H 239 H (65-105) mg/dl Lactate 2.2 H 2.4 H (0.7-2.1) mmol/L FiO2 21.0 100.0 % Potassium (3.6-5.0) mmol/L Carbon Dioxide (21-33) mmol/L Anion Gap (10-20) BUN (7-21) mg/dL Creatinine (0.7-1.2) mg/dL Est GFR ( Amer) Est GFR (Non-Af Amer) Random Glucose (70-110) mg/dL Lactic Acid 2.0 (0.7-2.1) mmol/L Calcium (8.4-10.5) mg/dL Phosphorus (2.5-4.5) mg/dL Magnesium (1.7-2.2) mg/dL Total Bilirubin (0.2-1.3) mg/dL AST (14-36) U/L ALT (7-56) U/L Alkaline Phosphatase (38-126) U/L Troponin I ng/mL Total Protein (5.8-8.3) g/dL Albumin (3.0-4.8) g/dL Globulin gm/dL Albumin/Globulin Ratio (1.1-1.8) Free T4 (0.78-2.19) ng/dL TSH 3rd Generation (0.46-4.68) mIU/mL Arterial Blood Potassium 2.8 L (3.6-5.2) mmol/L Venous Blood Potassium 3.5 L (3.6-5.2) mmol/L Urine Color (YELLOW) Urine Appearance (CLEAR) Urine pH (4.7-8.0) Ur Specific [place] (1.005-1.035) Urine Protein (<30 mg/dL) mg/dL Urine Glucose (UA) (NEGATIVE) mg/dL Urine Ketones (NEGATIVE) mg/dL Urine Blood (NEGATIVE) Urine Nitrate (NEGATIVE) Urine Bilirubin (NEGATIVE) Urine Urobilinogen (<1 E.U./dL) E.U./dL Ur Leukocyte Esterase (NEGATIVE) David/uL Urine RBC (0-2) /hpf Urine WBC (0-6) /hpf Ur Epithelial Cells (0-5) /hpf Urine Bacteria (NEG) 09/17/17 Range/Units 21:25 WBC (4.5-11.0) 10^3/ul RBC (3.5-6.1) 10^6/uL Hgb (12.0-16.0) g/dL Hct (36.0-48.0) % MCV (80.0-105.0) fl MCH (25.0-35.0) pg MCHC (31.0-37.0) g/dl RDW (11.5-14.5) % Plt Count (120.0-450.0) 10^3/uL MPV (7.0-11.0) fl Gran % (50.0-68.0) % Lymph % (Auto) (22.0-35.0) % [place] % (Auto) (1.0-6.0) % Eos % (Auto) (1.5-5.0) % Baso % (Auto) (0.0-3.0) % Gran # (1.4-6.5) Lymph # (1.2-3.4) [place] # (0.1-0.6) Eos # (0.0-0.7) Baso # (0.0-2.0) K/mm3 Neutrophils % (Manual) (50.0-70.0) % Band Neutrophils % (0-2) % Lymphocytes % (Manual) (22.0-35.0) % Monocytes % (Manual) (1.0-6.0) % Platelet Evaluation (NORMAL) Hypochromasia Anisocytosis (manual) PT (9.4-12.5) SECONDS INR (0.93-1.08) APTT (25.1-36.5) Seconds pCO2 (35-45) mm/Hg pO2 (80-100) mm/Hg HCO3 (21-28) mmol/L ABG pH (7.35-7.45) ABG Total CO2 (22-28) mmol.L ABG O2 Saturation (95-98) % ABG O2 Content (15-23) ML/dl ABG Base Excess (-2.0-3.0) mmol/L ABG Hemoglobin (11.7-17.4) g/dL ABG Carboxyhemoglobin (0.5-1.5) % POC ABG HHb (Measured) (0-5) % ABG Methemoglobin (0.0-3.0) % ABG O2 Capacity (16-24) mL/dl ABG Potassium (3.6-5.2) mmol/L VBG pH (7.32-7.43) VBG pCO2 (40-60) VBG HCO3 (21-28) mmol/l VBG Total CO2 (22-28) mmol.L VBG O2 Sat (Calc) (40-65) % VBG Base Excess (0.0-2.0) mmol/L VBG Potassium (3.6-5.2) mmol/L Hgb O2 Saturation (95.0-98.0) % Sodium (132-148) mmol/L Chloride (98-107) mmol/L Glucose (65-105) mg/dl Lactate (0.7-2.1) mmol/L FiO2 % Potassium (3.6-5.0) mmol/L Carbon Dioxide (21-33) mmol/L Anion Gap (10-20) BUN (7-21) mg/dL Creatinine (0.7-1.2) mg/dL Est GFR ( Amer) Est GFR (Non-Af Amer) Random Glucose (70-110) mg/dL Lactic Acid (0.7-2.1) mmol/L Calcium (8.4-10.5) mg/dL Phosphorus (2.5-4.5) mg/dL Magnesium (1.7-2.2) mg/dL Total Bilirubin (0.2-1.3) mg/dL AST (14-36) U/L ALT (7-56) U/L Alkaline Phosphatase (38-126) U/L Troponin I ng/mL Total Protein (5.8-8.3) g/dL Albumin (3.0-4.8) g/dL Globulin gm/dL Albumin/Globulin Ratio (1.1-1.8) Free T4 (0.78-2.19) ng/dL TSH 3rd Generation (0.46-4.68) mIU/mL Arterial Blood Potassium (3.6-5.2) mmol/L Venous Blood Potassium (3.6-5.2) mmol/L Urine Color Yellow (YELLOW) Urine Appearance Clear (CLEAR) Urine pH 6.0 (4.7-8.0) Ur Specific [place] >= 1.030 (1.005-1.035) Urine Protein 30 H (<30 mg/dL) mg/dL Urine Glucose (UA) 500 H (NEGATIVE) mg/dL Urine Ketones Trace H (NEGATIVE) mg/dL Urine Blood Negative (NEGATIVE) Urine Nitrate Negative (NEGATIVE) Urine Bilirubin Negative (NEGATIVE) Urine Urobilinogen 0.2 (<1 E.U./dL) E.U./dL Ur Leukocyte Esterase Negative (NEGATIVE) David/uL Urine RBC 0 - 2 (0-2) /hpf Urine WBC 0 - 2 (0-6) /hpf Ur Epithelial Cells 0 - 2 (0-5) /hpf Urine Bacteria Trace (NEG) Laboratory Results - last 24 hr 09/17/17 09/17/17 09/18/17 21:25 22:00 01:00 WBC RBC Hgb Hct MCV MCH MCHC RDW Plt Count MPV Gran % Lymph % (Auto) [place] % (Auto) Eos % (Auto) Baso % (Auto) Gran # Lymph # [place] # Eos # Baso # Neutrophils % (Manual) Band Neutrophils % Lymphocytes % (Manual) Monocytes % (Manual) Platelet Evaluation Hypochromasia Anisocytosis (manual) PT INR APTT pCO2 39 pO2 338.0 H HCO3 20.1 L ABG pH 7.32 L ABG Total CO2 21.3 L ABG O2 Saturation 99.9 H ABG O2 Content ABG Base Excess -5.6 L ABG Hemoglobin ABG Carboxyhemoglobin POC ABG HHb (Measured) ABG Methemoglobin ABG O2 Capacity ABG Potassium 2.8 L VBG pH VBG pCO2 VBG HCO3 VBG Total CO2 VBG O2 Sat (Calc) VBG Base Excess VBG Potassium Hgb O2 Saturation Sodium 144.0 Chloride 115.0 H Glucose 239 H Lactate 2.4 H FiO2 100.0 Potassium Carbon Dioxide Anion Gap BUN Creatinine Est GFR ( Amer) Est GFR (Non-Af Amer) Random Glucose Lactic Acid 2.0 Calcium Phosphorus Magnesium Total Bilirubin AST ALT Alkaline Phosphatase Troponin I Total Protein Albumin Globulin Albumin/Globulin Ratio Free T4 TSH 3rd Generation Arterial Blood Potassium 2.8 L Venous Blood Potassium Urine Color Yellow Urine Appearance Clear Urine pH 6.0 Ur Specific [place] >= 1.030 Urine Protein 30 H Urine Glucose (UA) 500 H Urine Ketones Trace H Urine Blood Negative Urine Nitrate Negative Urine Bilirubin Negative Urine Urobilinogen 0.2 Ur Leukocyte Esterase Negative Urine RBC 0 - 2 Urine WBC 0 - 2 Ur Epithelial Cells 0 - 2 Urine Bacteria Trace 09/18/17 09/18/17 09/18/17 01:15 05:30 05:30 WBC 10.8 D RBC 3.90 Hgb 11.0 L D Hct 33.7 L MCV 86.4 MCH 28.2 MCHC 32.6 RDW 15.9 H Plt Count 201 MPV 12.7 H Gran % 91.3 H Lymph % (Auto) 5.3 L [place] % (Auto) 3.4 Eos % (Auto) 0.0 L Baso % (Auto) 0.0 Gran # 9.90 H Lymph # 0.6 L [place] # 0.4 Eos # 0.0 Baso # 0.00 Neutrophils % (Manual) 91 H Band Neutrophils % 2 Lymphocytes % (Manual) 5 L Monocytes % (Manual) 2 Platelet Evaluation Normal Hypochromasia Slight Anisocytosis (manual) Slight PT INR APTT pCO2 pO2 71 H HCO3 ABG pH ABG Total CO2 ABG O2 Saturation ABG O2 Content ABG Base Excess ABG Hemoglobin ABG Carboxyhemoglobin POC ABG HHb (Measured) ABG Methemoglobin ABG O2 Capacity ABG Potassium VBG pH 7.33 VBG pCO2 46.0 VBG HCO3 24.3 VBG Total CO2 25.7 VBG O2 Sat (Calc) 95.9 H VBG Base Excess -1.9 L VBG Potassium 3.5 L Hgb O2 Saturation Sodium 143.0 143 Chloride 111.0 H 111 H Glucose 267 H Lactate 2.2 H FiO2 21.0 Potassium 3.6 Carbon Dioxide 24 Anion Gap 12 BUN 24 H Creatinine 0.8 Est GFR ( Amer) > 60 Est GFR (Non-Af Amer) > 60 Random Glucose 287 H Lactic Acid Calcium 9.3 Phosphorus 2.7 Magnesium 2.2 Total Bilirubin 0.7 AST 31 ALT 43 Alkaline Phosphatase 50 Troponin I 0.08 D Total Protein 6.0 Albumin 3.4 Globulin 2.7 Albumin/Globulin Ratio 1.3 Free T4 TSH 3rd Generation Arterial Blood Potassium Venous Blood Potassium 3.5 L Urine Color Urine Appearance Urine pH Ur Specific [place] Urine Protein Urine Glucose (UA) Urine Ketones Urine Blood Urine Nitrate Urine Bilirubin Urine Urobilinogen Ur Leukocyte Esterase Urine RBC Urine WBC Ur Epithelial Cells Urine Bacteria 09/18/17 09/18/17 09/18/17 06:30 06:30 06:30 WBC RBC Hgb Hct MCV MCH MCHC RDW Plt Count MPV Gran % Lymph % (Auto) [place] % (Auto) Eos % (Auto) Baso % (Auto) Gran # Lymph # [place] # Eos # Baso # Neutrophils % (Manual) Band Neutrophils % Lymphocytes % (Manual) Monocytes % (Manual) Platelet Evaluation Hypochromasia Anisocytosis (manual) PT 12.6 H INR 1.14 H APTT 28.1 pCO2 34 L pO2 101.0 H HCO3 21.6 ABG pH 7.41 ABG Total CO2 22.6 ABG O2 Saturation 99.0 H ABG O2 Content 13.4 L ABG Base Excess -2.6 L ABG Hemoglobin 9.8 L ABG Carboxyhemoglobin 1.6 H POC ABG HHb (Measured) 1.0 ABG Methemoglobin 1.1 ABG O2 Capacity 13.5 L ABG Potassium VBG pH VBG pCO2 VBG HCO3 VBG Total CO2 VBG O2 Sat (Calc) VBG Base Excess VBG Potassium Hgb O2 Saturation 96.3 Sodium Chloride Glucose Lactate FiO2 40.0 Potassium Carbon Dioxide Anion Gap BUN Creatinine Est GFR ( Amer) Est GFR (Non-Af Amer) Random Glucose Lactic Acid Calcium Phosphorus Magnesium Total Bilirubin AST ALT Alkaline Phosphatase Troponin I Total Protein Albumin Globulin Albumin/Globulin Ratio Free T4 1.86 TSH 3rd Generation 0.11 L Arterial Blood Potassium Venous Blood Potassium Urine Color Urine Appearance Urine pH Ur Specific [place] Urine Protein Urine Glucose (UA) Urine Ketones Urine Blood Urine Nitrate Urine Bilirubin Urine Urobilinogen Ur Leukocyte Esterase Urine RBC Urine WBC Ur Epithelial Cells Urine Bacteria 09/18/17 10:15 WBC RBC Hgb Hct MCV MCH MCHC RDW Plt Count MPV Gran % Lymph % (Auto) [place] % (Auto) Eos % (Auto) Baso % (Auto) Gran # Lymph # [place] # Eos # Baso # Neutrophils % (Manual) Band Neutrophils % Lymphocytes % (Manual) Monocytes % (Manual) Platelet Evaluation Hypochromasia Anisocytosis (manual) PT INR APTT pCO2 pO2 HCO3 ABG pH ABG Total CO2 ABG O2 Saturation ABG O2 Content ABG Base Excess ABG Hemoglobin ABG Carboxyhemoglobin POC ABG HHb (Measured) ABG Methemoglobin ABG O2 Capacity ABG Potassium VBG pH VBG pCO2 VBG HCO3 VBG Total CO2 VBG O2 Sat (Calc) VBG Base Excess VBG Potassium Hgb O2 Saturation Sodium Chloride Glucose Lactate FiO2 Potassium Carbon Dioxide Anion Gap BUN Creatinine Est GFR ( Amer) Est GFR (Non-Af Amer) Random Glucose Lactic Acid Calcium Phosphorus Magnesium Total Bilirubin AST ALT Alkaline Phosphatase Troponin I 0.09 Total Protein Albumin Globulin Albumin/Globulin Ratio Free T4 TSH 3rd Generation Arterial Blood Potassium Venous Blood Potassium Urine Color Urine Appearance Urine pH Ur Specific [place] Urine Protein Urine Glucose (UA) Urine Ketones Urine Blood Urine Nitrate Urine Bilirubin Urine Urobilinogen Ur Leukocyte Esterase Urine RBC Urine WBC Ur Epithelial Cells Urine Bacteria Fingerstick Blood Sugar Results: 303 Review of Systems - Review of Systems Review of Systems: 12 point review of systems cannot be ascertained at this time due to altered mental status Assessment/Plan - Assessment and Plan (Free Text) Assessment: Patient is a 77 year old female with a PMHx of hypertension, hyperlipidemia, non -insulin dependent diabetes, and hypothyroidism, who was admitted for evaluation and treatment of severe respiratory distress and sepsis. Plan: Neurological - patient is intubated, ventilated, and sedated - daily weaning trials - will decrease propofol steadily; sedation vacation; started on PRN versed Cardiovascular - EKG revealed ST depression on lateral leads - Cardiology consulted- appreciate recommendations - Trops trended and appreciated 0.02 --> 0.08--> 0.09 - HR trended, reviewed, and appreciated, will continue to monitor closely - BPs trended, reviewed, and appreciated, will continue to monitor closely - Echo ordered and pending - Hemodynamically stable - Maintain MAP > 65 Pulmnologic Respiratory Failure, Pneumonia - intubated and sedated PRVC 450/16/5/40% - Chest CT: Moderate interstitial thickening with bibasilar nodular consolidation and small bilateral pleural effusions - Repeat ABG reviewed and appreciated - continue with duoneb edison and prn - continue with vancomycin, meropenem, and doxycycline - Daily sedation trial and weaning trial - Maintain O2Sat >92% GI - Cont GI ppx with protonix Nephro/Electrolytes - Monitor IxOs - creatinine and BUN trended, reviewed, and appreciated, will continue to monitor closely Heme Anemia - No active bleeding - Hgbs trended, reviewed, and appreciated, will continue to monitor closely DVT prophyaxis - continue with lovenox D- Dimer Elevated - bilateral lower extremity ultrasound ordered and pending- will follow ID Sepsis Pneumonia as Source - continue with vancomycin, meropenem, and doxycycline - ID consulted- appreciate recommendations Endo Diabetes - keep patient euglycemic - continue ISS and accuchecks Q4h Patient seen, case discussed with, and plan approved by attending physician, Dr. Olivas. <Pio Olivas - Last Filed: 09/18/17 12:57> CCU Objective - Vital Signs / Intake & Output Vital Signs (Last 4 hours): Vital Signs Pulse Resp BP Pulse Ox 09/18/17 12:25 67 16 121/50 L 99 09/18/17 12:20 67 16 100 09/18/17 12:10 66 17 100 09/18/17 12:00 65 16 103/43 L 99 09/18/17 11:50 65 16 99 09/18/17 11:40 67 18 99 09/18/17 11:30 67 16 98 09/18/17 11:20 65 16 99 09/18/17 11:10 67 16 98 09/18/17 11:00 71 16 129/52 L 98 09/18/17 10:50 68 16 99 09/18/17 10:40 66 16 98 09/18/17 10:30 66 16 98 09/18/17 10:20 66 17 99 09/18/17 09:13 68 16 115/51 L 98 09/18/17 09:10 68 16 100 09/18/17 09:00 64 16 111/48 L 98 09/18/17 08:50 63 16 97 Intake and Output (Last 8hrs): Intake & Output 09/17/17 09/18/17 09/18/17 22:59 06:59 14:59 Intake Total 700 85 Output Total 350 Balance 350 85 Weight 142 lb Intake: IV 700 85 Left Forearm 500 Oral 0 Output: Urine 350 Urethral ([place]) 350 Stool 0 Other: Voiding Method Indwelling Catheter - Medications Active Medications: Active Medications Generic Name Dose Route Start Last Admin Trade Name Freq PRN Reason Stop Dose Admin Albuterol/Ipratropium 3 ml 09/17/17 23:30 09/18/17 11:37 Duoneb 3 Mg/0.5 Mg (3 Ml) Ud IH 3 ml [id number] EDISON Administration Albuterol/Ipratropium 3 ml 09/17/17 22:33 Duoneb 3 Mg/0.5 Mg (3 Ml) Ud IH Q2H PRN Shortness of Breath Chlorhexidine Gluconate 15 ml 09/18/17 04:16 Peridex PO Q4 PRN ORAL CARE Enoxaparin Sodium 40 mg 09/18/17 10:00 09/18/17 11:03 Lovenox SC 40 mg DAILY EDISON Administration Protocol Propofol 1,000 mg in 100 mls @ 1.837 mls/hr 09/17/17 21:19 09/18/17 12:15 Diprivan IV 50 mcg/kg/min .Q24H PRN 18.371 mls/hr TITRATE PER MD ORDER Titration Protocol 5 MCG/KG/MIN Potassium Chloride 20 meq/ 1,010 mls @ 100 mls/hr 09/18/17 05:15 09/18/17 05: 30 Sodium Chloride IV 100 mls/hr .Q10H6M EDISON Administration Meropenem 1 gm/ Dextrose 100 mls @ 100 mls/hr 09/18/17 14:00 IVPB 09/25/17 14:01 Q8 EDISON Protocol Vancomycin HCl 1 gm in 250 mls @ 167 mls/hr 09/18/17 10:00 09/18/17 09:16 Vancomycin 1gm IVPB 167 mls/hr Q12 EDISON Administration Protocol Doxycycline Hyclate 100 mg/ 100 mls @ 100 mls/hr 09/18/17 10:00 09/18/17 10: 49 Sodium Chloride IVPB 100 mls/hr Q12 EDISON Administration Protocol Insulin Human Regular 0 units 09/18/17 05:30 09/18/17 06:30 Humulin R Med SC 2 units Q4H EDISON Administration Protocol Midazolam HCl 1 mg 09/18/17 10:28 09/18/17 10:45 Versed Inj IVP 1 mg Q2H PRN Administration Agitation Pantoprazole Sodium 40 mg 09/18/17 10:00 09/18/17 11:03 Protonix Inj IVP 40 mg DAILY EDISON Administration - Patient Studies Lab Studies: Lab Studies 09/18/17 09/18/17 09/18/17 Range/Units 11:43 10:15 06:30 WBC (4.5-11.0) 10^3/ul RBC (3.5-6.1) 10^6/uL Hgb (12.0-16.0) g/dL Hct (36.0-48.0) % MCV (80.0-105.0) fl MCH (25.0-35.0) pg MCHC (31.0-37.0) g/dl RDW (11.5-14.5) % Plt Count (120.0-450.0) 10^3/uL MPV (7.0-11.0) fl Gran % (50.0-68.0) % Lymph % (Auto) (22.0-35.0) % [place] % (Auto) (1.0-6.0) % Eos % (Auto) (1.5-5.0) % Baso % (Auto) (0.0-3.0) % Gran # (1.4-6.5) Lymph # (1.2-3.4) [place] # (0.1-0.6) Eos # (0.0-0.7) Baso # (0.0-2.0) K/mm3 Neutrophils % (Manual) (50.0-70.0) % Band Neutrophils % (0-2) % Lymphocytes % (Manual) (22.0-35.0) % Monocytes % (Manual) (1.0-6.0) % Platelet Evaluation (NORMAL) Hypochromasia Anisocytosis (manual) PT (9.4-12.5) SECONDS INR (0.93-1.08) APTT (25.1-36.5) Seconds pCO2 (35-45) mm/Hg pO2 (80-100) mm/Hg HCO3 (21-28) mmol/L ABG pH (7.35-7.45) ABG Total CO2 (22-28) mmol.L ABG O2 Saturation (95-98) % ABG O2 Content (15-23) ML/dl ABG Base Excess (-2.0-3.0) mmol/L ABG Hemoglobin (11.7-17.4) g/dL ABG Carboxyhemoglobin (0.5-1.5) % POC ABG HHb (Measured) (0-5) % ABG Methemoglobin (0.0-3.0) % ABG O2 Capacity (16-24) mL/dl ABG Potassium (3.6-5.2) mmol/L VBG pH (7.32-7.43) VBG pCO2 (40-60) VBG HCO3 (21-28) mmol/l VBG Total CO2 (22-28) mmol.L VBG O2 Sat (Calc) (40-65) % VBG Base Excess (0.0-2.0) mmol/L VBG Potassium (3.6-5.2) mmol/L Hgb O2 Saturation (95.0-98.0) % Sodium (132-148) mmol/L Chloride (98-107) mmol/L Glucose (65-105) mg/dl Lactate (0.7-2.1) mmol/L FiO2 % Potassium (3.6-5.0) mmol/L Carbon Dioxide (21-33) mmol/L Anion Gap (10-20) BUN (7-21) mg/dL Creatinine (0.7-1.2) mg/dL Est GFR ( Amer) Est GFR (Non-Af Amer) Random Glucose (70-110) mg/dL Lactic Acid (0.7-2.1) mmol/L Calcium (8.4-10.5) mg/dL Phosphorus (2.5-4.5) mg/dL Magnesium (1.7-2.2) mg/dL Total Bilirubin (0.2-1.3) mg/dL AST (14-36) U/L ALT (7-56) U/L Alkaline Phosphatase (38-126) U/L Troponin I 0.09 ng/mL Total Protein (5.8-8.3) g/dL Albumin (3.0-4.8) g/dL Globulin gm/dL Albumin/Globulin Ratio (1.1-1.8) Free T4 1.86 (0.78-2.19) ng/dL TSH 3rd Generation 0.11 L (0.46-4.68) mIU/mL Arterial Blood Potassium (3.6-5.2) mmol/L Venous Blood Potassium (3.6-5.2) mmol/L Urine Color (YELLOW) Urine Appearance (CLEAR) Urine pH (4.7-8.0) Ur Specific [place] (1.005-1.035) Urine Protein (<30 mg/dL) mg/dL Urine Glucose (UA) (NEGATIVE) mg/dL Urine Ketones (NEGATIVE) mg/dL Urine Blood (NEGATIVE) Urine Nitrate (NEGATIVE) Urine Bilirubin (NEGATIVE) Urine Urobilinogen (<1 E.U./dL) E.U./dL Ur Leukocyte Esterase (NEGATIVE) David/uL Urine RBC (0-2) /hpf Urine WBC (0-6) /hpf Ur Epithelial Cells (0-5) /hpf Urine Bacteria (NEG) Influenza Typ A,B (EIA) Negative for flu a/b (NEGATIVE) 09/18/17 09/18/17 09/18/17 Range/Units 06:30 06:30 05:30 WBC (4.5-11.0) 10^3/ul RBC (3.5-6.1) 10^6/uL Hgb (12.0-16.0) g/dL Hct (36.0-48.0) % MCV (80.0-105.0) fl MCH (25.0-35.0) pg MCHC (31.0-37.0) g/dl RDW (11.5-14.5) % Plt Count (120.0-450.0) 10^3/uL MPV (7.0-11.0) fl Gran % (50.0-68.0) % Lymph % (Auto) (22.0-35.0) % [place] % (Auto) (1.0-6.0) % Eos % (Auto) (1.5-5.0) % Baso % (Auto) (0.0-3.0) % Gran # (1.4-6.5) Lymph # (1.2-3.4) [place] # (0.1-0.6) Eos # (0.0-0.7) Baso # (0.0-2.0) K/mm3 Neutrophils % (Manual) (50.0-70.0) % Band Neutrophils % (0-2) % Lymphocytes % (Manual) (22.0-35.0) % Monocytes % (Manual) (1.0-6.0) % Platelet Evaluation (NORMAL) Hypochromasia Anisocytosis (manual) PT 12.6 H (9.4-12.5) SECONDS INR 1.14 H (0.93-1.08) APTT 28.1 (25.1-36.5) Seconds pCO2 34 L (35-45) mm/Hg pO2 101.0 H (80-100) mm/Hg HCO3 21.6 (21-28) mmol/L ABG pH 7.41 (7.35-7.45) ABG Total CO2 22.6 (22-28) mmol.L ABG O2 Saturation 99.0 H (95-98) % ABG O2 Content 13.4 L (15-23) ML/dl ABG Base Excess -2.6 L (-2.0-3.0) mmol/L ABG Hemoglobin 9.8 L (11.7-17.4) g/dL ABG Carboxyhemoglobin 1.6 H (0.5-1.5) % POC ABG HHb (Measured) 1.0 (0-5) % ABG Methemoglobin 1.1 (0.0-3.0) % ABG O2 Capacity 13.5 L (16-24) mL/dl ABG Potassium (3.6-5.2) mmol/L VBG pH (7.32-7.43) VBG pCO2 (40-60) VBG HCO3 (21-28) mmol/l VBG Total CO2 (22-28) mmol.L VBG O2 Sat (Calc) (40-65) % VBG Base Excess (0.0-2.0) mmol/L VBG Potassium (3.6-5.2) mmol/L Hgb O2 Saturation 96.3 (95.0-98.0) % Sodium 143 (132-148) mmol/L Chloride 111 H (98-107) mmol/L Glucose (65-105) mg/dl Lactate (0.7-2.1) mmol/L FiO2 40.0 % Potassium 3.6 (3.6-5.0) mmol/L Carbon Dioxide 24 (21-33) mmol/L Anion Gap 12 (10-20) BUN 24 H (7-21) mg/dL Creatinine 0.8 (0.7-1.2) mg/dL Est GFR ( Amer) > 60 Est GFR (Non-Af Amer) > 60 Random Glucose 287 H (70-110) mg/dL Lactic Acid (0.7-2.1) mmol/L Calcium 9.3 (8.4-10.5) mg/dL Phosphorus 2.7 (2.5-4.5) mg/dL Magnesium 2.2 (1.7-2.2) mg/dL Total Bilirubin 0.7 (0.2-1.3) mg/dL AST 31 (14-36) U/L ALT 43 (7-56) U/L Alkaline Phosphatase 50 (38-126) U/L Troponin I 0.08 D ng/mL Total Protein 6.0 (5.8-8.3) g/dL Albumin 3.4 (3.0-4.8) g/dL Globulin 2.7 gm/dL Albumin/Globulin Ratio 1.3 (1.1-1.8) Free T4 (0.78-2.19) ng/dL TSH 3rd Generation (0.46-4.68) mIU/mL Arterial Blood Potassium (3.6-5.2) mmol/L Venous Blood Potassium (3.6-5.2) mmol/L Urine Color (YELLOW) Urine Appearance (CLEAR) Urine pH (4.7-8.0) Ur Specific [place] (1.005-1.035) Urine Protein (<30 mg/dL) mg/dL Urine Glucose (UA) (NEGATIVE) mg/dL Urine Ketones (NEGATIVE) mg/dL Urine Blood (NEGATIVE) Urine Nitrate (NEGATIVE) Urine Bilirubin (NEGATIVE) Urine Urobilinogen (<1 E.U./dL) E.U./dL Ur Leukocyte Esterase (NEGATIVE) David/uL Urine RBC (0-2) /hpf Urine WBC (0-6) /hpf Ur Epithelial Cells (0-5) /hpf Urine Bacteria (NEG) Influenza Typ A,B (EIA) (NEGATIVE) 09/18/17 09/18/17 09/18/17 Range/Units 05:30 01:15 01:00 WBC 10.8 D (4.5-11.0) 10^3/ul RBC 3.90 (3.5-6.1) 10^6/uL Hgb 11.0 L D (12.0-16.0) g/dL Hct 33.7 L (36.0-48.0) % MCV 86.4 (80.0-105.0) fl MCH 28.2 (25.0-35.0) pg MCHC 32.6 (31.0-37.0) g/dl RDW 15.9 H (11.5-14.5) % Plt Count 201 (120.0-450.0) 10^3/uL MPV 12.7 H (7.0-11.0) fl Gran % 91.3 H (50.0-68.0) % Lymph % (Auto) 5.3 L (22.0-35.0) % [place] % (Auto) 3.4 (1.0-6.0) % Eos % (Auto) 0.0 L (1.5-5.0) % Baso % (Auto) 0.0 (0.0-3.0) % Gran # 9.90 H (1.4-6.5) Lymph # 0.6 L (1.2-3.4) [place] # 0.4 (0.1-0.6) Eos # 0.0 (0.0-0.7) Baso # 0.00 (0.0-2.0) K/mm3 Neutrophils % (Manual) 91 H (50.0-70.0) % Band Neutrophils % 2 (0-2) % Lymphocytes % (Manual) 5 L (22.0-35.0) % Monocytes % (Manual) 2 (1.0-6.0) % Platelet Evaluation Normal (NORMAL) Hypochromasia Slight Anisocytosis (manual) Slight PT (9.4-12.5) SECONDS INR (0.93-1.08) APTT (25.1-36.5) Seconds pCO2 (35-45) mm/Hg pO2 71 H (80-100) mm/Hg HCO3 (21-28) mmol/L ABG pH (7.35-7.45) ABG Total CO2 (22-28) mmol.L ABG O2 Saturation (95-98) % ABG O2 Content (15-23) ML/dl ABG Base Excess (-2.0-3.0) mmol/L ABG Hemoglobin (11.7-17.4) g/dL ABG Carboxyhemoglobin (0.5-1.5) % POC ABG HHb (Measured) (0-5) % ABG Methemoglobin (0.0-3.0) % ABG O2 Capacity (16-24) mL/dl ABG Potassium (3.6-5.2) mmol/L VBG pH 7.33 (7.32-7.43) VBG pCO2 46.0 (40-60) VBG HCO3 24.3 (21-28) mmol/l VBG Total CO2 25.7 (22-28) mmol.L VBG O2 Sat (Calc) 95.9 H (40-65) % VBG Base Excess -1.9 L (0.0-2.0) mmol/L VBG Potassium 3.5 L (3.6-5.2) mmol/L Hgb O2 Saturation (95.0-98.0) % Sodium 143.0 (132-148) mmol/L Chloride 111.0 H (98-107) mmol/L Glucose 267 H (65-105) mg/dl Lactate 2.2 H (0.7-2.1) mmol/L FiO2 21.0 % Potassium (3.6-5.0) mmol/L Carbon Dioxide (21-33) mmol/L Anion Gap (10-20) BUN (7-21) mg/dL Creatinine (0.7-1.2) mg/dL Est GFR ( Amer) Est GFR (Non-Af Amer) Random Glucose (70-110) mg/dL Lactic Acid 2.0 (0.7-2.1) mmol/L Calcium (8.4-10.5) mg/dL Phosphorus (2.5-4.5) mg/dL Magnesium (1.7-2.2) mg/dL Total Bilirubin (0.2-1.3) mg/dL AST (14-36) U/L ALT (7-56) U/L Alkaline Phosphatase (38-126) U/L Troponin I ng/mL Total Protein (5.8-8.3) g/dL Albumin (3.0-4.8) g/dL Globulin gm/dL Albumin/Globulin Ratio (1.1-1.8) Free T4 (0.78-2.19) ng/dL TSH 3rd Generation (0.46-4.68) mIU/mL Arterial Blood Potassium (3.6-5.2) mmol/L Venous Blood Potassium 3.5 L (3.6-5.2) mmol/L Urine Color (YELLOW) Urine Appearance (CLEAR) Urine pH (4.7-8.0) Ur Specific [place] (1.005-1.035) Urine Protein (<30 mg/dL) mg/dL Urine Glucose (UA) (NEGATIVE) mg/dL Urine Ketones (NEGATIVE) mg/dL Urine Blood (NEGATIVE) Urine Nitrate (NEGATIVE) Urine Bilirubin (NEGATIVE) Urine Urobilinogen (<1 E.U./dL) E.U./dL Ur Leukocyte Esterase (NEGATIVE) David/uL Urine RBC (0-2) /hpf Urine WBC (0-6) /hpf Ur Epithelial Cells (0-5) /hpf Urine Bacteria (NEG) Influenza Typ A,B (EIA) (NEGATIVE) 09/17/17 09/17/17 Range/Units 22:00 21:25 WBC (4.5-11.0) 10^3/ul RBC (3.5-6.1) 10^6/uL Hgb (12.0-16.0) g/dL Hct (36.0-48.0) % MCV (80.0-105.0) fl MCH (25.0-35.0) pg MCHC (31.0-37.0) g/dl RDW (11.5-14.5) % Plt Count (120.0-450.0) 10^3/uL MPV (7.0-11.0) fl Gran % (50.0-68.0) % Lymph % (Auto) (22.0-35.0) % [place] % (Auto) (1.0-6.0) % Eos % (Auto) (1.5-5.0) % Baso % (Auto) (0.0-3.0) % Gran # (1.4-6.5) Lymph # (1.2-3.4) [place] # (0.1-0.6) Eos # (0.0-0.7) Baso # (0.0-2.0) K/mm3 Neutrophils % (Manual) (50.0-70.0) % Band Neutrophils % (0-2) % Lymphocytes % (Manual) (22.0-35.0) % Monocytes % (Manual) (1.0-6.0) % Platelet Evaluation (NORMAL) Hypochromasia Anisocytosis (manual) PT (9.4-12.5) SECONDS INR (0.93-1.08) APTT (25.1-36.5) Seconds pCO2 39 (35-45) mm/Hg pO2 338.0 H (80-100) mm/Hg HCO3 20.1 L (21-28) mmol/L ABG pH 7.32 L (7.35-7.45) ABG Total CO2 21.3 L (22-28) mmol.L ABG O2 Saturation 99.9 H (95-98) % ABG O2 Content (15-23) ML/dl ABG Base Excess -5.6 L (-2.0-3.0) mmol/L ABG Hemoglobin (11.7-17.4) g/dL ABG Carboxyhemoglobin (0.5-1.5) % POC ABG HHb (Measured) (0-5) % ABG Methemoglobin (0.0-3.0) % ABG O2 Capacity (16-24) mL/dl ABG Potassium 2.8 L (3.6-5.2) mmol/L VBG pH (7.32-7.43) VBG pCO2 (40-60) VBG HCO3 (21-28) mmol/l VBG Total CO2 (22-28) mmol.L VBG O2 Sat (Calc) (40-65) % VBG Base Excess (0.0-2.0) mmol/L VBG Potassium (3.6-5.2) mmol/L Hgb O2 Saturation (95.0-98.0) % Sodium 144.0 (132-148) mmol/L Chloride 115.0 H (98-107) mmol/L Glucose 239 H (65-105) mg/dl Lactate 2.4 H (0.7-2.1) mmol/L FiO2 100.0 % Potassium (3.6-5.0) mmol/L Carbon Dioxide (21-33) mmol/L Anion Gap (10-20) BUN (7-21) mg/dL Creatinine (0.7-1.2) mg/dL Est GFR ( Amer) Est GFR (Non-Af Amer) Random Glucose (70-110) mg/dL Lactic Acid (0.7-2.1) mmol/L Calcium (8.4-10.5) mg/dL Phosphorus (2.5-4.5) mg/dL Magnesium (1.7-2.2) mg/dL Total Bilirubin (0.2-1.3) mg/dL AST (14-36) U/L ALT (7-56) U/L Alkaline Phosphatase (38-126) U/L Troponin I ng/mL Total Protein (5.8-8.3) g/dL Albumin (3.0-4.8) g/dL Globulin gm/dL Albumin/Globulin Ratio (1.1-1.8) Free T4 (0.78-2.19) ng/dL TSH 3rd Generation (0.46-4.68) mIU/mL Arterial Blood Potassium 2.8 L (3.6-5.2) mmol/L Venous Blood Potassium (3.6-5.2) mmol/L Urine Color Yellow (YELLOW) Urine Appearance Clear (CLEAR) Urine pH 6.0 (4.7-8.0) Ur Specific [place] >= 1.030 (1.005-1.035) Urine Protein 30 H (<30 mg/dL) mg/dL Urine Glucose (UA) 500 H (NEGATIVE) mg/dL Urine Ketones Trace H (NEGATIVE) mg/dL Urine Blood Negative (NEGATIVE) Urine Nitrate Negative (NEGATIVE) Urine Bilirubin Negative (NEGATIVE) Urine Urobilinogen 0.2 (<1 E.U./dL) E.U./dL Ur Leukocyte Esterase Negative (NEGATIVE) David/uL Urine RBC 0 - 2 (0-2) /hpf Urine WBC 0 - 2 (0-6) /hpf Ur Epithelial Cells 0 - 2 (0-5) /hpf Urine Bacteria Trace (NEG) Influenza Typ A,B (EIA) (NEGATIVE) Laboratory Results - last 24 hr 09/17/17 09/17/17 09/18/17 21:25 22:00 01:00 WBC RBC Hgb Hct MCV MCH MCHC RDW Plt Count MPV Gran % Lymph % (Auto) [place] % (Auto) Eos % (Auto) Baso % (Auto) Gran # Lymph # [place] # Eos # Baso # Neutrophils % (Manual) Band Neutrophils % Lymphocytes % (Manual) Monocytes % (Manual) Platelet Evaluation Hypochromasia Anisocytosis (manual) PT INR APTT pCO2 39 pO2 338.0 H HCO3 20.1 L ABG pH 7.32 L ABG Total CO2 21.3 L ABG O2 Saturation 99.9 H ABG O2 Content ABG Base Excess -5.6 L ABG Hemoglobin ABG Carboxyhemoglobin POC ABG HHb (Measured) ABG Methemoglobin ABG O2 Capacity ABG Potassium 2.8 L VBG pH VBG pCO2 VBG HCO3 VBG Total CO2 VBG O2 Sat (Calc) VBG Base Excess VBG Potassium Hgb O2 Saturation Sodium 144.0 Chloride 115.0 H Glucose 239 H Lactate 2.4 H FiO2 100.0 Potassium Carbon Dioxide Anion Gap BUN Creatinine Est GFR ( Amer) Est GFR (Non-Af Amer) Random Glucose Lactic Acid 2.0 Calcium Phosphorus Magnesium Total Bilirubin AST ALT Alkaline Phosphatase Troponin I Total Protein Albumin Globulin Albumin/Globulin Ratio Free T4 TSH 3rd Generation Arterial Blood Potassium 2.8 L Venous Blood Potassium Urine Color Yellow Urine Appearance Clear Urine pH 6.0 Ur Specific [place] >= 1.030 Urine Protein 30 H Urine Glucose (UA) 500 H Urine Ketones Trace H Urine Blood Negative Urine Nitrate Negative Urine Bilirubin Negative Urine Urobilinogen 0.2 Ur Leukocyte Esterase Negative Urine RBC 0 - 2 Urine WBC 0 - 2 Ur Epithelial Cells 0 - 2 Urine Bacteria Trace Influenza Typ A,B (EIA) 09/18/17 09/18/17 09/18/17 01:15 05:30 05:30 WBC 10.8 D RBC 3.90 Hgb 11.0 L D Hct 33.7 L MCV 86.4 MCH 28.2 MCHC 32.6 RDW 15.9 H Plt Count 201 MPV 12.7 H Gran % 91.3 H Lymph % (Auto) 5.3 L [place] % (Auto) 3.4 Eos % (Auto) 0.0 L Baso % (Auto) 0.0 Gran # 9.90 H Lymph # 0.6 L [place] # 0.4 Eos # 0.0 Baso # 0.00 Neutrophils % (Manual) 91 H Band Neutrophils % 2 Lymphocytes % (Manual) 5 L Monocytes % (Manual) 2 Platelet Evaluation Normal Hypochromasia Slight Anisocytosis (manual) Slight PT INR APTT pCO2 pO2 71 H HCO3 ABG pH ABG Total CO2 ABG O2 Saturation ABG O2 Content ABG Base Excess ABG Hemoglobin ABG Carboxyhemoglobin POC ABG HHb (Measured) ABG Methemoglobin ABG O2 Capacity ABG Potassium VBG pH 7.33 VBG pCO2 46.0 VBG HCO3 24.3 VBG Total CO2 25.7 VBG O2 Sat (Calc) 95.9 H VBG Base Excess -1.9 L VBG Potassium 3.5 L Hgb O2 Saturation Sodium 143.0 143 Chloride 111.0 H 111 H Glucose 267 H Lactate 2.2 H FiO2 21.0 Potassium 3.6 Carbon Dioxide 24 Anion Gap 12 BUN 24 H Creatinine 0.8 Est GFR ( Amer) > 60 Est GFR (Non-Af Amer) > 60 Random Glucose 287 H Lactic Acid Calcium 9.3 Phosphorus 2.7 Magnesium 2.2 Total Bilirubin 0.7 AST 31 ALT 43 Alkaline Phosphatase 50 Troponin I 0.08 D Total Protein 6.0 Albumin 3.4 Globulin 2.7 Albumin/Globulin Ratio 1.3 Free T4 TSH 3rd Generation Arterial Blood Potassium Venous Blood Potassium 3.5 L Urine Color Urine Appearance Urine pH Ur Specific [place] Urine Protein Urine Glucose (UA) Urine Ketones Urine Blood Urine Nitrate Urine Bilirubin Urine Urobilinogen Ur Leukocyte Esterase Urine RBC Urine WBC Ur Epithelial Cells Urine Bacteria Influenza Typ A,B (EIA) 09/18/17 09/18/17 09/18/17 06:30 06:30 06:30 WBC RBC Hgb Hct MCV MCH MCHC RDW Plt Count MPV Gran % Lymph % (Auto) [place] % (Auto) Eos % (Auto) Baso % (Auto) Gran # Lymph # [place] # Eos # Baso # Neutrophils % (Manual) Band Neutrophils % Lymphocytes % (Manual) Monocytes % (Manual) Platelet Evaluation Hypochromasia Anisocytosis (manual) PT 12.6 H INR 1.14 H APTT 28.1 pCO2 34 L pO2 101.0 H HCO3 21.6 ABG pH 7.41 ABG Total CO2 22.6 ABG O2 Saturation 99.0 H ABG O2 Content 13.4 L ABG Base Excess -2.6 L ABG Hemoglobin 9.8 L ABG Carboxyhemoglobin 1.6 H POC ABG HHb (Measured) 1.0 ABG Methemoglobin 1.1 ABG O2 Capacity 13.5 L ABG Potassium VBG pH VBG pCO2 VBG HCO3 VBG Total CO2 VBG O2 Sat (Calc) VBG Base Excess VBG Potassium Hgb O2 Saturation 96.3 Sodium Chloride Glucose Lactate FiO2 40.0 Potassium Carbon Dioxide Anion Gap BUN Creatinine Est GFR ( Amer) Est GFR (Non-Af Amer) Random Glucose Lactic Acid Calcium Phosphorus Magnesium Total Bilirubin AST ALT Alkaline Phosphatase Troponin I Total Protein Albumin Globulin Albumin/Globulin Ratio Free T4 1.86 TSH 3rd Generation 0.11 L Arterial Blood Potassium Venous Blood Potassium Urine Color Urine Appearance Urine pH Ur Specific [place] Urine Protein Urine Glucose (UA) Urine Ketones Urine Blood Urine Nitrate Urine Bilirubin Urine Urobilinogen Ur Leukocyte Esterase Urine RBC Urine WBC Ur Epithelial Cells Urine Bacteria Influenza Typ A,B (EIA) 09/18/17 09/18/17 10:15 11:43 WBC RBC Hgb Hct MCV MCH MCHC RDW Plt Count MPV Gran % Lymph % (Auto) [place] % (Auto) Eos % (Auto) Baso % (Auto) Gran # Lymph # [place] # Eos # Baso # Neutrophils % (Manual) Band Neutrophils % Lymphocytes % (Manual) Monocytes % (Manual) Platelet Evaluation Hypochromasia Anisocytosis (manual) PT INR APTT pCO2 pO2 HCO3 ABG pH ABG Total CO2 ABG O2 Saturation ABG O2 Content ABG Base Excess ABG Hemoglobin ABG Carboxyhemoglobin POC ABG HHb (Measured) ABG Methemoglobin ABG O2 Capacity ABG Potassium VBG pH VBG pCO2 VBG HCO3 VBG Total CO2 VBG O2 Sat (Calc) VBG Base Excess VBG Potassium Hgb O2 Saturation Sodium Chloride Glucose Lactate FiO2 Potassium Carbon Dioxide Anion Gap BUN Creatinine Est GFR ( Amer) Est GFR (Non-Af Amer) Random Glucose Lactic Acid Calcium Phosphorus Magnesium Total Bilirubin AST ALT Alkaline Phosphatase Troponin I 0.09 Total Protein Albumin Globulin Albumin/Globulin Ratio Free T4 TSH 3rd Generation Arterial Blood Potassium Venous Blood Potassium Urine Color Urine Appearance Urine pH Ur Specific [place] Urine Protein Urine Glucose (UA) Urine Ketones Urine Blood Urine Nitrate Urine Bilirubin Urine Urobilinogen Ur Leukocyte Esterase Urine RBC Urine WBC Ur Epithelial Cells Urine Bacteria Influenza Typ A,B (EIA) Negative for flu a/b Assessment/Plan - Assessment and Plan (Free Text) Plan: patient seen and examined on rounds with resident, agree with note with following additions/exceptions: Patient is 77yo female with PMhx of HTN, NIDDM, HLD a/w PNA and respiratory failure requiring intubation. Currently intubated, sedated, on PEPP 5, FiO2 40% , sat 99%, with Plateau pressures of 15-20 on ventilator, good oxygenation. Patient's sedation decreased this morning, patient somewhat arousable, follows simple commands, not ready for extubation yet. ID is following. CAP Respiratory failure HTN NIDDM Hypothyroid Recommend: - cont with ventilatory support, low tidal vol ventilation, goal plateau<30 - broad spectrum antibiotics as per ID - check urine Lg, Strep - Follow up cultures - IVF hydration - monitor HH - FS control - elevated ddimer, check LE duplex - ECHO - GI ppx - DVT ppx critical care time 45 minutes
[2017-09-18 13:35] LABS: CHOLESTEROL 126 mg/dL (130-200)
--- NOTE | 2017-09-18 14:45 | US ---
HISTORY: Leg pain and swelling. Evaluate for DVT PHYSICIAN(S): Mikey Coats MD. TECHNIQUE: Duplex sonography and color-flow Doppler with graded compression were used to evaluate the deep venous systems of both lower extremities. FINDINGS: The visualized deep venous systems of both lower extremities are sonographically normal and compressible. Normal wave forms and augmentation are seen. There is no sonographic evidence for deep venous thrombosis in the visualized segments of both lower extremities. IMPRESSION: No sonographic evidence for deep venous thrombosis in the visualized segments of both lower extremities.
[2017-09-18] MEDS: Meropenem 1 GM in Dextrose 5% In Water 100 ML IVPB SCH ×2 (15:02→21:19)
[2017-09-18] MEDS: Sodium Chloride 0.9% 1,000 ML IV SCH (15:04)
[2017-09-18] MEDS ORDERED: Insulin Reg-MEDIUM-Coverage SC SCH (15:15)
--- NOTE | 2017-09-18 17:51 | CARD ---
APPROVED REPORT EXAM: Two-dimensional and M-mode echocardiogram with Doppler and color Doppler. INDICATION RESPIRATORY FAILURE/SEPSIS 2D DIMENSIONS Left Atrium (2D)5.0 (1.6-4.0cm)IVSd1.2 (0.7-1.1cm) LVDd3.8 (3.9-5.9cm)PWd1.3 (0.7-1.1cm) LVDs2.6 (2.5-4.0cm)FS (%) 31.6 % LVEF (%)60.2 (>50%) M-Mode DIMENSIONS Aortic Root2.80 (2.2-3.7cm)Aortic Cusp Exc.1.40 (1.5-2.0cm) Aortic Valve AoV Peak Fopckofc278.0cm/sAoV VTI40.2cmAO Peak GR.15mmHg LVOT Peak Wygbfyzv142.0cm/sLVOT VTI26.80cmAO Mean GR.8mmHg Mitral Valve MV E Rmzvqogk575.0cm/sMV E Peak Gr.18mmHgMV A Gijxtkzz270.0cm/s MV E Mean Gr.9mmHgMV VQB805mvV/A ratio1.2 MVA (PHT)1.24cm2 TDI Lateral E' Peak V5.17cm/sMedial E' Peak V4.39cm/sE/Lateral E'41.6 E/Medial E'49.0 Pulmonary Valve PV Peak Hngqckog36.7cm/sPV Peak Grad.2mmHg Tricuspid Valve TR Peak Dvhdmafi894jk/sRAP [id number] Peak Gr.52mmHg FXQM50emTh LEFT VENTRICLE The left ventricle is normal size. There is mild concentric left ventricular hypertrophy. The left ventricular function is normal.EF-60-65% There is normal LV segmental wall motion. The left ventricular diastolic function is normal. No left ventricle thrombus noted on this study. There is no ventricular septal defect visualized. There is no left ventricular aneurysm. RIGHT VENTRICLE The right ventricle is normal size. There is normal right ventricular wall thickness. The right ventricular systolic function is normal. ATRIA The left atrium is mildly dilated. The right atrium size is normal. The interatrial septum is intact with no evidence for an atrial septal defect. AORTIC VALVE The aortic valve is thickened but opens well. The aortic valve is mildly to moderately sclerotic. No aortic regurgitation is present. Aortic Sclerosis Vs Mild There is no aortic valvular vegetation. MITRAL VALVE The mitral valve is calcified and displays decreased opening. Mitral annular calcification is moderate to severe. Mitral regurgitation is mild to moderate. There is moderate mitral valve stenosis. There is no evidence of mitral valve prolapse. TRICUSPID VALVE The tricuspid valve leaflets are thickened , but open well. There is mild to moderate tricuspid regurgitation.RVSP-62 mmof hg. There is no tricuspid valve stenosis. There is no tricuspid valve prolapse or vegetation. PULMONIC VALVE The pulmonic valve is not well visualized. There is trace pulmonic valvular regurgitation. GREAT VESSELS The aortic root is normal in size. The ascending aorta is normal in size. The pulmonary artery is normal. The IVC is normal in size and collapses >50% with inspiration. PERICARDIAL EFFUSION There is no pleural effusion. There is no pericardial effusion. <Conclusion> The left ventricle is normal size. There is mild concentric left ventricular hypertrophy. The left ventricular function is normal.EF-60-65% No aortic regurgitation is present. Mitral regurgitation is mild to moderate. Aortic Sclerosis Vs Mild There is mild to moderate tricuspid regurgitation.RVSP-62 mmof hg. No vegetation noted. There is moderate mitral valve stenosis.
[2017-09-18] MEDS ORDERED: Dextrose 50% SYRINGE Inj (50 ml) ONE (17:58)
[2017-09-18] MEDS ORDERED: Dextrose 50% SYRINGE Inj (50 ml) IVP ONE (17:59)
--- NOTE | 2017-09-18 21:02 | CONS ---
DATE: 09/18/2017 REASON FOR CONSULTATION: Respiratory distress, status post intubated. Cardiac evaluation. ST-T changes in EKG. BRIEF CLINICAL HISTORY: This is a 77-year-old female with past medical history significant for type 2 diabetes,hypertension, hyperlipidemia, hypothyroidism, brought to the emergency room because of severe respiratory distress as witnessed by her granddaughter who is 15 years old. She states the patient went to the bathroom and became very short of breath, so called the ambulance. Ambulance advised them to give 2 Proventil treatment, and the patient was brought into the emergency room. The patient was found to be in oxygen saturation of 65% at home. The patient was intubated in [facility]. Recently, the daughter states the patient went to [place] and was a trip until Monday, but she was constipated there and feeling sick, so they decided to cut the trip and came here and she was weak and lethargic. Denies any evidence of chest pain, denies any shortness of breath or denies any palpitation at [place]. PAST MEDICAL HISTORY: As mentioned, history of hypothyroidism, hyperlipidemia, type 2 diabetes, and hypothyroidism. SOCIAL HISTORY: Denies any smoking. Denies any history of alcohol abuse. PAST SURGICAL HISTORY: Not obtainable. CURRENT MEDICATIONS: The patient at home was taking amlodipine 10 mg daily, levothyroxine 125 mcg daily, baby aspirin 81 mg daily, glyburide and metformin 1 tablet daily, fenofibrate 145 mg daily, TriCor and atorvastatin 40 mg daily. ALLERGIES: IODINE CONTAINING DYE. REVIEW OF SYSTEMS: As per HPI and negative except as per HPI. Denies any chest pain, shortness of breath or any palpitation. PHYSICAL EXAMINATION: GENERAL: The patient is currently being intubated, not responding to verbal stimuli. VITAL SIGNS: Temperature afebrile, heart rate 67, blood pressure 121/50. At one point, rectal temperature yesterday night at around 10:00 p.m. was 100.6. HEENT: PERRLA. Extraocular muscles are intact. NECK: Supple. No carotid bruit or thyromegaly. CHEST: Clear to auscultation. HEART: S1 and S2 regular. ABDOMEN: Soft. EXTREMITIES: Clubbing and cyanosis negative. LABORATORY DATA: WBC 10.8, hemoglobin 11, hematocrit 33.7 and platelet count 201. Chemistry shows sodium 143, potassium 3.6, chloride of 111, carbon dioxide of 24, anion gap of 12, BUN 24 and creatinine 0.8. Troponin 0.01, 0.09 and 0.02. BNP 1600. EKG shows sinus tachycardia and ST-T changes noted. Possible exposure to cold and feeling weak before coming from [place]. While the patient was in [place] [facility], around 3 a.m., patient had a code sepsis was called at 3:00 a.m. and was moved to ICU as a code sepsis. Chest x-ray; poor penetrating film, but cannot rule out right lower lobe pneumonia. Official reading, extensive interstitial marking seen consistent with CHF. Did not mention about pneumonia. Patient had CAT scan of the chest done that shows persistent cardiomegaly, endotracheal tube in good position, moderate interstitial markings, bibasilar, nodular consolidation, small bilateral pleural effusion. IMPRESSION: A 77-year-old female with a past medical history significant for diabetes, hypertension, hyperlipidemia, who is feeling weak, lethargic, possible cold, low-grade [place] [id number]. Chest x-ray consistent with possible right lower lobe pneumonia, respiratory distress, intubated, code sepsis. So far, the troponin is in indeterminate range at 0.09. So far, no evidence of chest pain or acute myocardial infarction at this time, but given the multiple risk factors cannot rule out underlying coronary artery disease. The patient was hypotensive requiring vasopressor, now is on just IV fluids and antibiotics. RECOMMENDATION: We will treat as unstable angina as well we increase Lovenox to 1 mg subcutaneous every 12 hours, get echo to assess LV function and follow up serial CPK and troponin. We will add beta maci as blood pressure is tolerated. At one point, the patient was hypotensive. Further recommendations as per hospital course. We will get lipid profile, TSH and hemoglobin A1c. We will also get echo to assess LV function. Further recommendations as per hospital course. We will add also baby aspirin and follow up serial CPK and troponin. Edwin Baumann MD
[2017-09-18] MEDS: Enoxaparin 60 mg Syringe SC SCH (21:21)
[2017-09-19] MEDS: Albuterol-Ipratrop 3 mg / 0.5 (3 ml) UD IH SCH ×6 (02:35→19:27)
[2017-09-19] MEDS: Propofol 10 mg/ml 1,000 MG/100 ML VIAL IV PRN ×4 (02:40→22:46)
[2017-09-19] MEDS: Meropenem 1 GM in Dextrose 5% In Water 100 ML IVPB SCH ×3 (06:03→21:48)
[2017-09-19] MEDS: Insulin Reg-MEDIUM-Coverage SC SCH ×3 (06:12→19:00)
[2017-09-19] MEDS: Sodium Chloride 0.9% 1,000 ML IV SCH ×2 (06:13→16:00)
[2017-09-19 06:53] LABS: BASO # 0.01 K/mm3 (0.0-2.0); BASO % 0.1 % (0.0-3.0); EOS # 0.1 (0.0-0.7); EOS % 0.5 % (1.5-5.0); GRAN # 8.14 (1.4-6.5); GRAN % 75.7 % (50.0-68.0); HEMATOCRIT 31.6 % (36.0-48.0); LYMPH # 1.7 (1.2-3.4); LYMPH % 15.7 % (22.0-35.0); MEAN CELL VOLUME 87.8 fl (80.0-105.0); MEAN CORPUSCULAR HEMOGLOBIN 28.1 pg (25.0-35.0); MEAN PLATELET VOLUME 12.4 fl (7.0-11.0); MONO # 0.9 (0.1-0.6); RED CELL DISTRIBUTION WIDTH 16.6 % (11.5-14.5); WHITE BLOOD COUNT 10.8 10^3/ul (4.5-11.0)
[2017-09-19 07:02] LABS: ALKALINE PHOSPHATASE 44 U/L (38-126); ALT/SGPT 43 U/L (7-56); AST/SGOT 32 U/L (14-36); BLOOD UREA NITROGEN 20 mg/dL (7-21); CALCIUM 8.4 mg/dL (8.4-10.5); CARBON DIOXIDE 27 mmol/L (21-33); CHLORIDE 115 mmol/L (95-110); GFR AFRICAN-AMERICAN > 60; GLUCOSE,RANDOM 183 mg/dL (70-110); PHOSPHOROUS 2.9 mg/dL (2.5-4.5); POTASSIUM 3.7 mmol/L (3.6-5.0); SODIUM 145 mmol/L (132-148); TOTAL PROTEIN 5.4 g/dL (5.8-8.3)
[2017-09-19 07:18] LABS: BILIRUBIN,TOTAL 0.8 mg/dL (0.2-1.3)
[2017-09-19 07:25] LABS: ALB/GLOB RATIO 1.2 (1.1-1.8)
[2017-09-19 07:51] LABS: TROPONIN I 0.17 ng/mL
[2017-09-19] MEDS: Vancomycin 1gm in NS 250ml 1 GM/250 ML BAG IVPB SCH ×2 (09:46→21:49)
--- NOTE | 2017-09-19 10:08 | RAD ---
HISTORY: intubated COMPARISON: 09/17/2017 FINDINGS: LUNGS: The severe vascular and interstitial congestion seen previously has improved. The endotracheal and nasogastric tubes are unchanged in position. PLEURA: No significant pleural effusion identified, no pneumothorax apparent. CARDIOVASCULAR: Normal. OSSEOUS STRUCTURES: No significant abnormalities. VISUALIZED UPPER ABDOMEN: Normal. OTHER FINDINGS: None. IMPRESSION: Improvement in CHF
--- NOTE | 2017-09-19 10:27 | CP.CCUPN ---
Addendum entered and electronically signed by José Miguel Alexandre DO 09/19/17 11:50: Update: 2 hours after extubation patient developed respiratory distress. CXR and EKG ordered. CXR showed signs of flash pulmonary edema. Patient was given 80mg IV lasix with adequate urine output. Patient was placed on nonrebreather but did not tolerate it. Decision was made to intubate the patient. Propofol was given. Patient was intubated and is placed on ventilation PVRC FiO2 60%, RR 16, TV 450 , PEEP 5 with sedation. Original Note: <José Miguel Alexandre - Last Filed: 09/19/17 10:24> CCU Subjective - Physician Review Subjective (Free Text): Patient seen and examined at bedside. Resting comfortably in bed. No acute overnight events. Patient is intubated and sedation has been stopped. Family at bedside. Patient is awake, alert, responds to verbal stimuli, and follows commands. Nods/shakes head to answer yes/no questions. Denies fever, chills, chest pain, shortness of breath, abdominal pain, nausea, vomiting, diarrhea, constipation, and urinary symptoms. 09/19/17 10:25 CCU Objective - Vital Signs / Intake & Output Vital Signs (Last 4 hours): Vital Signs Pulse Resp BP Pulse Ox 09/19/17 07:25 83 23 149/66 100 09/19/17 07:20 72 18 100 09/19/17 07:10 73 19 100 09/19/17 07:00 74 22 156/70 H 100 09/19/17 06:50 72 16 100 09/19/17 06:40 72 20 100 09/19/17 06:30 69 16 99 Intake and Output (Last 8hrs): Intake & Output 09/18/17 09/19/17 09/19/17 22:59 06:59 14:59 Intake Total 1270 1740 59 Output Total 400 400 Balance 870 1340 59 Intake: IV 1250 1300 59 Left Forearm 250 300 Right Forearm 900 Right Hand 900 Oral 20 Tube Feeding 440 Output: Urine 400 Urethral ([place]) 400 Stool 400 Other: # Bowel Movements 0 - Physical Exam Head: Positive for: Atraumatic, Normocephalic Pupils: Positive for: PERRL Extroacular Muscles: Positive for: EOMI Conjunctiva: Positive for: Normal Ears: Positive for: Normal Mouth: Positive for: Moist Mucous Membranes Pharnyx: Positive for: Normal. Negative for: ERYTHEMA, EXUDATE, TONSILS ENLARGED Nose (Internal): Positive for: Normal Inspection Neck: Positive for: Trachea Midline. Negative for: JVD Respiratory/Chest: Positive for: Good Air Exchange, Other (bibasilar crackles) Cardiovascular: Positive for: Normal S1, S2, Tachycardic. Negative for: Murmurs Abdomen: Positive for: Normal Bowel Sounds. Negative for: Tenderness, Distention, Peritoneal Signs Upper Extremity: Positive for: Normal Inspection Lower Extremity: Positive for: Normal Inspection. Negative for: Edema Neurological: Positive for: GCS=15 Skin: Positive for: Warm, Dry. Negative for: Rashes Psychiatric: Positive for: Alert - Medications Active Medications: Active Medications Generic Name Dose Route Start Last Admin Trade Name Freq PRN Reason Stop Dose Admin Albuterol/Ipratropium 3 ml 09/17/17 23:30 09/19/17 08:01 Duoneb 3 Mg/0.5 Mg (3 Ml) Ud IH 3 ml [id number] EDISON Administration Albuterol/Ipratropium 3 ml 09/17/17 22:33 Duoneb 3 Mg/0.5 Mg (3 Ml) Ud IH Q2H PRN Shortness of Breath Aspirin 81 mg 09/19/17 10:00 Ecotrin PO DAILY EDISON Aspirin 81 mg 09/19/17 10:00 Aspirin Chewable PO DAILY EDISON Chlorhexidine Gluconate 15 ml 09/18/17 04:16 Peridex PO Q4 PRN ORAL CARE Enoxaparin Sodium 60 mg 09/18/17 22:00 09/18/17 21:21 Lovenox SC 60 mg Q12H EDISON Administration Protocol Propofol 1,000 mg in 100 mls @ 1.837 mls/hr 09/17/17 21:19 09/19/17 08:20 Diprivan IV 0 mcg/kg/min .Q24H PRN 0 mls/hr TITRATE PER MD ORDER Titration Protocol 5 MCG/KG/MIN Meropenem 1 gm/ Dextrose 100 mls @ 100 mls/hr 09/18/17 14:00 09/19/17 06:03 IVPB 09/25/17 14:01 100 mls/hr Q8 EDISON Administration Protocol Vancomycin HCl 1 gm in 250 mls @ 167 mls/hr 09/18/17 10:00 09/19/17 09:46 Vancomycin 1gm IVPB 167 mls/hr Q12 EDISON Administration Protocol Doxycycline Hyclate 100 mg/ 100 mls @ 100 mls/hr 09/18/17 10:00 09/18/17 21: 14 Sodium Chloride IVPB 100 mls/hr Q12 EDISON Administration Protocol Sodium Chloride 1,000 mls @ 75 mls/hr 09/18/17 13:00 09/19/17 06:13 Sodium Chloride 0.9% IV 75 mls/hr .[id number] EDISON Administration Insulin Human Regular 0 units 09/19/17 00:44 09/19/17 06:12 Humulin R Med SC Not Given Q6 EDISON Protocol Metoprolol Tartrate 25 mg 09/18/17 18:00 09/18/17 18:50 Lopressor PO Not Given BID EDISON Midazolam HCl 1 mg 09/18/17 10:28 09/18/17 21:18 Versed Inj IVP 1 mg Q2H PRN Administration Agitation Pantoprazole Sodium 40 mg 09/18/17 10:00 09/19/17 09:47 Protonix Inj IVP 40 mg DAILY EDISON Administration - Patient Studies Lab Studies: Microbiology Studies 09/17/17 21:50 Blood Culture - Preliminary Blood-Venous NO GROWTH AFTER 24 HOURS 09/18/17 12:30 Gram Stain - Final Sputum Lab Studies 09/19/17 09/19/17 09/19/17 Range/Units 06:11 06:00 06:00 WBC 10.8 (4.5-11.0) 10^3/ul RBC 3.60 (3.5-6.1) 10^6/uL Hgb 10.1 L (12.0-16.0) g/dL Hct 31.6 L (36.0-48.0) % MCV 87.8 (80.0-105.0) fl MCH 28.1 (25.0-35.0) pg MCHC 32.0 (31.0-37.0) g/dl RDW 16.6 H (11.5-14.5) % Plt Count 202 (120.0-450.0) 10^3/uL MPV 12.4 H (7.0-11.0) fl Gran % 75.7 H (50.0-68.0) % Lymph % (Auto) 15.7 L (22.0-35.0) % [place] % (Auto) 8.0 H (1.0-6.0) % Eos % (Auto) 0.5 L (1.5-5.0) % Baso % (Auto) 0.1 (0.0-3.0) % Gran # 8.14 H (1.4-6.5) Lymph # 1.7 (1.2-3.4) [place] # 0.9 H (0.1-0.6) Eos # 0.1 (0.0-0.7) Baso # 0.01 (0.0-2.0) K/mm3 Sodium (132-148) mmol/L Potassium (3.6-5.0) mmol/L Chloride (95-110) mmol/L Carbon Dioxide (21-33) mmol/L Anion Gap (10-20) BUN (7-21) mg/dL Creatinine (0.7-1.2) mg/dL Est GFR ( Amer) Est GFR (Non-Af Amer) POC Glucose (mg/dL) 163 H (65-110) mg/dL Random Glucose (70-110) mg/dL Calcium (8.4-10.5) mg/dL Phosphorus (2.5-4.5) mg/dL Magnesium (1.7-2.2) mg/dL Total Bilirubin (0.2-1.3) mg/dL AST (14-36) U/L ALT (7-56) U/L Alkaline Phosphatase (38-126) U/L Lactate Dehydrogenase (333-699) U/L Total Creatine Kinase (35-230) U/L Troponin I ng/mL Total Protein (5.8-8.3) g/dL Albumin (3.0-4.8) g/dL Globulin gm/dL Albumin/Globulin Ratio (1.1-1.8) Triglycerides (35-160) mg/dL Cholesterol (130-200) mg/dL LDL Cholesterol Direct (0-129) mg/dL HDL Cholesterol (29-60) mg/dL TSH 3rd Generation 0.27 L (0.46-4.68) mIU/mL Influenza Typ A,B (EIA) (NEGATIVE) Ur L.pneumophila Ag (NEGATIVE) 09/19/17 09/19/17 09/18/17 Range/Units 06:00 00:51 17:51 WBC (4.5-11.0) 10^3/ul RBC (3.5-6.1) 10^6/uL Hgb (12.0-16.0) g/dL Hct (36.0-48.0) % MCV (80.0-105.0) fl MCH (25.0-35.0) pg MCHC (31.0-37.0) g/dl RDW (11.5-14.5) % Plt Count (120.0-450.0) 10^3/uL MPV (7.0-11.0) fl Gran % (50.0-68.0) % Lymph % (Auto) (22.0-35.0) % [place] % (Auto) (1.0-6.0) % Eos % (Auto) (1.5-5.0) % Baso % (Auto) (0.0-3.0) % Gran # (1.4-6.5) Lymph # (1.2-3.4) [place] # (0.1-0.6) Eos # (0.0-0.7) Baso # (0.0-2.0) K/mm3 Sodium 145 (132-148) mmol/L Potassium 3.7 (3.6-5.0) mmol/L Chloride 115 H (95-110) mmol/L Carbon Dioxide 27 (21-33) mmol/L Anion Gap 7 L (10-20) BUN 20 (7-21) mg/dL Creatinine 0.8 (0.7-1.2) mg/dL Est GFR ( Amer) > 60 Est GFR (Non-Af Amer) > 60 POC Glucose (mg/dL) 112 H 65 (65-110) mg/dL Random Glucose 183 H (70-110) mg/dL Calcium 8.4 (8.4-10.5) mg/dL Phosphorus 2.9 (2.5-4.5) mg/dL Magnesium 2.0 (1.7-2.2) mg/dL Total Bilirubin 0.8 (0.2-1.3) mg/dL AST 32 (14-36) U/L ALT 43 (7-56) U/L Alkaline Phosphatase 44 (38-126) U/L Lactate Dehydrogenase 451 (333-699) U/L Total Creatine Kinase 84 (35-230) U/L Troponin I 0.17 H* D ng/mL Total Protein 5.4 L (5.8-8.3) g/dL Albumin 2.9 L (3.0-4.8) g/dL Globulin 2.5 gm/dL Albumin/Globulin Ratio 1.2 (1.1-1.8) Triglycerides (35-160) mg/dL Cholesterol (130-200) mg/dL LDL Cholesterol Direct (0-129) mg/dL HDL Cholesterol (29-60) mg/dL TSH 3rd Generation (0.46-4.68) mIU/mL Influenza Typ A,B (EIA) (NEGATIVE) Ur L.pneumophila Ag (NEGATIVE) 09/18/17 09/18/17 09/18/17 Range/Units 13:20 13:02 12:30 WBC (4.5-11.0) 10^3/ul RBC (3.5-6.1) 10^6/uL Hgb (12.0-16.0) g/dL Hct (36.0-48.0) % MCV (80.0-105.0) fl MCH (25.0-35.0) pg MCHC (31.0-37.0) g/dl RDW (11.5-14.5) % Plt Count (120.0-450.0) 10^3/uL MPV (7.0-11.0) fl Gran % (50.0-68.0) % Lymph % (Auto) (22.0-35.0) % [place] % (Auto) (1.0-6.0) % Eos % (Auto) (1.5-5.0) % Baso % (Auto) (0.0-3.0) % Gran # (1.4-6.5) Lymph # (1.2-3.4) [place] # (0.1-0.6) Eos # (0.0-0.7) Baso # (0.0-2.0) K/mm3 Sodium (132-148) mmol/L Potassium (3.6-5.0) mmol/L Chloride (95-110) mmol/L Carbon Dioxide (21-33) mmol/L Anion Gap (10-20) BUN (7-21) mg/dL Creatinine (0.7-1.2) mg/dL Est GFR ( Amer) Est GFR (Non-Af Amer) POC Glucose (mg/dL) 152 H (65-110) mg/dL Random Glucose (70-110) mg/dL Calcium (8.4-10.5) mg/dL Phosphorus (2.5-4.5) mg/dL Magnesium (1.7-2.2) mg/dL Total Bilirubin (0.2-1.3) mg/dL AST (14-36) U/L ALT (7-56) U/L Alkaline Phosphatase (38-126) U/L Lactate Dehydrogenase (333-699) U/L Total Creatine Kinase (35-230) U/L Troponin I ng/mL Total Protein (5.8-8.3) g/dL Albumin (3.0-4.8) g/dL Globulin gm/dL Albumin/Globulin Ratio (1.1-1.8) Triglycerides 209 H (35-160) mg/dL Cholesterol 126 L (130-200) mg/dL LDL Cholesterol Direct 84 (0-129) mg/dL HDL Cholesterol 25 L (29-60) mg/dL TSH 3rd Generation (0.46-4.68) mIU/mL Influenza Typ A,B (EIA) (NEGATIVE) Ur L.pneumophila Ag Negative (NEGATIVE) 09/18/17 09/18/17 09/18/17 Range/Units 11:43 10:15 06:42 WBC (4.5-11.0) 10^3/ul RBC (3.5-6.1) 10^6/uL Hgb (12.0-16.0) g/dL Hct (36.0-48.0) % MCV (80.0-105.0) fl MCH (25.0-35.0) pg MCHC (31.0-37.0) g/dl RDW (11.5-14.5) % Plt Count (120.0-450.0) 10^3/uL MPV (7.0-11.0) fl Gran % (50.0-68.0) % Lymph % (Auto) (22.0-35.0) % [place] % (Auto) (1.0-6.0) % Eos % (Auto) (1.5-5.0) % Baso % (Auto) (0.0-3.0) % Gran # (1.4-6.5) Lymph # (1.2-3.4) [place] # (0.1-0.6) Eos # (0.0-0.7) Baso # (0.0-2.0) K/mm3 Sodium (132-148) mmol/L Potassium (3.6-5.0) mmol/L Chloride (95-110) mmol/L Carbon Dioxide (21-33) mmol/L Anion Gap (10-20) BUN (7-21) mg/dL Creatinine (0.7-1.2) mg/dL Est GFR ( Amer) Est GFR (Non-Af Amer) POC Glucose (mg/dL) 302 H (65-110) mg/dL Random Glucose (70-110) mg/dL Calcium (8.4-10.5) mg/dL Phosphorus (2.5-4.5) mg/dL Magnesium (1.7-2.2) mg/dL Total Bilirubin (0.2-1.3) mg/dL AST (14-36) U/L ALT (7-56) U/L Alkaline Phosphatase (38-126) U/L Lactate Dehydrogenase (333-699) U/L Total Creatine Kinase (35-230) U/L Troponin I 0.09 ng/mL Total Protein (5.8-8.3) g/dL Albumin (3.0-4.8) g/dL Globulin gm/dL Albumin/Globulin Ratio (1.1-1.8) Triglycerides (35-160) mg/dL Cholesterol (130-200) mg/dL LDL Cholesterol Direct (0-129) mg/dL HDL Cholesterol (29-60) mg/dL TSH 3rd Generation (0.46-4.68) mIU/mL Influenza Typ A,B (EIA) Negative for flu a/b (NEGATIVE) Ur L.pneumophila Ag (NEGATIVE) Laboratory Results - last 24 hr 09/18/17 09/18/17 09/18/17 06:42 10:15 11:43 WBC RBC Hgb Hct MCV MCH MCHC RDW Plt Count MPV Gran % Lymph % (Auto) [place] % (Auto) Eos % (Auto) Baso % (Auto) Gran # Lymph # [place] # Eos # Baso # Sodium Potassium Chloride Carbon Dioxide Anion Gap BUN Creatinine Est GFR ( Amer) Est GFR (Non-Af Amer) POC Glucose (mg/dL) 302 H Random Glucose Calcium Phosphorus Magnesium Total Bilirubin AST ALT Alkaline Phosphatase Lactate Dehydrogenase Total Creatine Kinase Troponin I 0.09 Total Protein Albumin Globulin Albumin/Globulin Ratio Triglycerides Cholesterol LDL Cholesterol Direct HDL Cholesterol TSH 3rd Generation Influenza Typ A,B (EIA) Negative for flu a/b Ur L.pneumophila Ag 09/18/17 09/18/17 09/18/17 12:30 13:02 13:20 WBC RBC Hgb Hct MCV MCH MCHC RDW Plt Count MPV Gran % Lymph % (Auto) [place] % (Auto) Eos % (Auto) Baso % (Auto) Gran # Lymph # [place] # Eos # Baso # Sodium Potassium Chloride Carbon Dioxide Anion Gap BUN Creatinine Est GFR ( Amer) Est GFR (Non-Af Amer) POC Glucose (mg/dL) 152 H Random Glucose Calcium Phosphorus Magnesium Total Bilirubin AST ALT Alkaline Phosphatase Lactate Dehydrogenase Total Creatine Kinase Troponin I Total Protein Albumin Globulin Albumin/Globulin Ratio Triglycerides 209 H Cholesterol 126 L LDL Cholesterol Direct 84 HDL Cholesterol 25 L TSH 3rd Generation Influenza Typ A,B (EIA) Ur L.pneumophila Ag Negative 09/18/17 09/19/17 09/19/17 17:51 00:51 06:00 WBC RBC Hgb Hct MCV MCH MCHC RDW Plt Count MPV Gran % Lymph % (Auto) [place] % (Auto) Eos % (Auto) Baso % (Auto) Gran # Lymph # [place] # Eos # Baso # Sodium 145 Potassium 3.7 Chloride 115 H Carbon Dioxide 27 Anion Gap 7 L BUN 20 Creatinine 0.8 Est GFR ( Amer) > 60 Est GFR (Non-Af Amer) > 60 POC Glucose (mg/dL) 65 112 H Random Glucose 183 H Calcium 8.4 Phosphorus 2.9 Magnesium 2.0 Total Bilirubin 0.8 AST 32 ALT 43 Alkaline Phosphatase 44 Lactate Dehydrogenase 451 Total Creatine Kinase 84 Troponin I 0.17 H* D Total Protein 5.4 L Albumin 2.9 L Globulin 2.5 Albumin/Globulin Ratio 1.2 Triglycerides Cholesterol LDL Cholesterol Direct HDL Cholesterol TSH 3rd Generation Influenza Typ A,B (EIA) Ur L.pneumophila Ag 09/19/17 09/19/17 09/19/17 06:00 06:00 06:11 WBC 10.8 RBC 3.60 Hgb 10.1 L Hct 31.6 L MCV 87.8 MCH 28.1 MCHC 32.0 RDW 16.6 H Plt Count 202 MPV 12.4 H Gran % 75.7 H Lymph % (Auto) 15.7 L [place] % (Auto) 8.0 H Eos % (Auto) 0.5 L Baso % (Auto) 0.1 Gran # 8.14 H Lymph # 1.7 [place] # 0.9 H Eos # 0.1 Baso # 0.01 Sodium Potassium Chloride Carbon Dioxide Anion Gap BUN Creatinine Est GFR ( Amer) Est GFR (Non-Af Amer) POC Glucose (mg/dL) 163 H Random Glucose Calcium Phosphorus Magnesium Total Bilirubin AST ALT Alkaline Phosphatase Lactate Dehydrogenase Total Creatine Kinase Troponin I Total Protein Albumin Globulin Albumin/Globulin Ratio Triglycerides Cholesterol LDL Cholesterol Direct HDL Cholesterol TSH 3rd Generation 0.27 L Influenza Typ A,B (EIA) Ur L.pneumophila Ag Fingerstick Blood Sugar Results: 163 Review of Systems - Review of Systems Review of Systems: 12-point review of systems negative except as indicated in the HPI Assessment/Plan - Assessment and Plan (Free Text) Assessment: Patient is a 77 year old female with a PMHx of hypertension, hyperlipidemia, non -insulin dependent diabetes, and hypothyroidism, who was admitted for evaluation and treatment of severe respiratory distress and sepsis. Plan: Neurological - patient underwent sedation vacation and passed weaning trial, discontinue propofol and versed - pt is awake, alert, responds to verbal stimuli, answers questions appropriately, follows commands, and moves extremities past midline Cardiovascular - EKG revealed ST depression on lateral leads on admission - Cardiology consulted- appreciate recommendations- c/w enoxoparin q12 and metoprolol - Trops trended and appreciated 0.02 --> 0.08--> 0.09--> 0.17- will trend and appreciate, repeat EKG ordered- will review - HR trended, reviewed, and appreciated, will continue to monitor closely - BPs trended, reviewed, and appreciated, will continue to monitor closely - Echo reviewed and appreciated- LVEF 60%-65%; moderate mitral valve stenosis - Hemodynamically stable - Maintain MAP > 65 Pulmnologic Respiratory Failure, Pneumonia - patient underwent sedation vacation and passed weaning trial- extubated this AM - Chest CT: Moderate interstitial thickening with bibasilar nodular consolidation and small bilateral pleural effusions - continue with duoneb edison and prn - continue with vancomycin, meropenem, and doxycycline - Maintain O2Sat >92% GI - Cont GI ppx with protonix Nephro/Electrolytes - Monitor IxOs - creatinine and BUN trended, reviewed, and appreciated, will continue to monitor closely Heme Anemia - No active bleeding - Hgbs trended, reviewed, and appreciated, will continue to monitor closely- decreased likely from IVF dilution DVT prophylaxis - continue with lovenox D- Dimer Elevated - bilateral lower extremity ultrasound reviewed- no DVTs noted ID Sepsis Pneumonia as Source - continue with vancomycin, meropenem, and doxycycline, continue IVF - ID consulted- appreciate recommendations Endo Diabetes - keep patient euglycemic - continue ISS and accuchecks Q6h TSH 3rd Gen Low - noted, will monitor for s/sxs of hypothyroidism, restart levothyroxine pending clinical course Patient seen, case discussed with, and plan approved by attending physician, Dr. Olivas <Pio Olivas - Last Filed: 09/19/17 12:10> CCU Objective - Vital Signs / Intake & Output Intake and Output (Last 8hrs): Intake & Output 09/18/17 09/19/17 09/19/17 22:59 06:59 14:59 Intake Total 1270 1740 59 Output Total 400 400 Balance 870 1340 59 Intake: IV 1250 1300 59 Left Forearm 250 300 Right Forearm 900 Right Hand 900 Oral 20 Tube Feeding 440 Output: Urine 400 Urethral ([place]) 400 Stool 400 Other: # Bowel Movements 0 - Medications Active Medications: Active Medications Generic Name Dose Route Start Last Admin Trade Name Freq PRN Reason Stop Dose Admin Albuterol/Ipratropium 3 ml 09/17/17 23:30 09/19/17 10:59 Duoneb 3 Mg/0.5 Mg (3 Ml) Ud IH 3 ml [id number] EDISON Administration Albuterol/Ipratropium 3 ml 09/17/17 22:33 Duoneb 3 Mg/0.5 Mg (3 Ml) Ud IH Q2H PRN Shortness of Breath Aspirin 81 mg 09/19/17 10:00 Ecotrin PO DAILY EDISON Chlorhexidine Gluconate 15 ml 11/13/17 04:16 Peridex PO Q4 PRN ORAL CARE Enoxaparin Sodium 60 mg 09/18/17 22:00 09/18/17 21:21 Lovenox SC 60 mg Q12H EDISON Administration Protocol Meropenem 1 gm/ Dextrose 100 mls @ 100 mls/hr 09/18/17 14:00 09/19/17 06:03 IVPB 09/25/17 14:01 100 mls/hr Q8 EDISON Administration Protocol Vancomycin HCl 1 gm in 250 mls @ 167 mls/hr 09/18/17 10:00 09/19/17 09:46 Vancomycin 1gm IVPB 167 mls/hr Q12 [facility] Administration Protocol Doxycycline Hyclate 100 mg/ 100 mls @ 100 mls/hr 09/18/17 10:00 09/18/17 21: 14 Sodium Chloride IVPB 100 mls/hr Q12 EDISON Administration Protocol Sodium Chloride 1,000 mls @ 75 mls/hr 09/18/17 13:00 09/19/17 06:13 Sodium Chloride 0.9% IV 75 mls/hr .[id number] EDISON Administration Insulin Human Regular 0 units 09/19/17 00:44 09/19/17 06:12 Humulin R Med SC Not Given Q6 [facility] Protocol Metoprolol Tartrate 25 mg 09/18/17 18:00 09/18/17 18:50 Lopressor PO Not Given BID EDISON Pantoprazole Sodium 40 mg 09/18/17 10:00 09/19/17 09:47 Protonix Inj IVP 40 mg DAILY EDISON Administration - Patient Studies Lab Studies: Microbiology Studies 09/18/17 12:30 Gram Stain - Final Sputum Sputum Culture - Preliminary NORMAL ORAL LIZZETH 09/18/17 11:43 Urine Culture - Final Urine,[place] No Growth (<1,000 CFU/ML) 09/17/17 21:50 Blood Culture - Preliminary Blood-Venous NO GROWTH AFTER 24 HOURS Lab Studies 09/19/17 09/19/17 09/19/17 Range/Units 06:11 06:00 06:00 WBC 10.8 (4.5-11.0) 10^3/ul RBC 3.60 (3.5-6.1) 10^6/uL Hgb 10.1 L (12.0-16.0) g/dL Hct 31.6 L (36.0-48.0) % MCV 87.8 (80.0-105.0) fl MCH 28.1 (25.0-35.0) pg MCHC 32.0 (31.0-37.0) g/dl RDW 16.6 H (11.5-14.5) % Plt Count 202 (120.0-450.0) 10^3/uL MPV 12.4 H (7.0-11.0) fl Gran % 75.7 H (50.0-68.0) % Lymph % (Auto) 15.7 L (22.0-35.0) % [place] % (Auto) 8.0 H (1.0-6.0) % Eos % (Auto) 0.5 L (1.5-5.0) % Baso % (Auto) 0.1 (0.0-3.0) % Gran # 8.14 H (1.4-6.5) Lymph # 1.7 (1.2-3.4) [place] # 0.9 H (0.1-0.6) Eos # 0.1 (0.0-0.7) Baso # 0.01 (0.0-2.0) K/mm3 Sodium (132-148) mmol/L Potassium (3.6-5.0) mmol/L Chloride (95-110) mmol/L Carbon Dioxide (21-33) mmol/L Anion Gap (10-20) BUN (7-21) mg/dL Creatinine (0.7-1.2) mg/dL Est GFR ( Amer) Est GFR (Non-Af Amer) POC Glucose (mg/dL) 163 H (65-110) mg/dL Random Glucose (70-110) mg/dL Calcium (8.4-10.5) mg/dL Phosphorus (2.5-4.5) mg/dL Magnesium (1.7-2.2) mg/dL Total Bilirubin (0.2-1.3) mg/dL AST (14-36) U/L ALT (7-56) U/L Alkaline Phosphatase (38-126) U/L Lactate Dehydrogenase (333-699) U/L Total Creatine Kinase (35-230) U/L Troponin I ng/mL Total Protein (5.8-8.3) g/dL Albumin (3.0-4.8) g/dL Globulin gm/dL Albumin/Globulin Ratio (1.1-1.8) Triglycerides (35-160) mg/dL Cholesterol (130-200) mg/dL LDL Cholesterol Direct (0-129) mg/dL HDL Cholesterol (29-60) mg/dL TSH 3rd Generation 0.27 L (0.46-4.68) mIU/mL Influenza Typ A,B (EIA) (NEGATIVE) Ur L.pneumophila Ag (NEGATIVE) 09/19/17 09/19/17 09/18/17 Range/Units 06:00 00:51 17:51 WBC (4.5-11.0) 10^3/ul RBC (3.5-6.1) 10^6/uL Hgb (12.0-16.0) g/dL Hct (36.0-48.0) % MCV (80.0-105.0) fl MCH (25.0-35.0) pg MCHC (31.0-37.0) g/dl RDW (11.5-14.5) % Plt Count (120.0-450.0) 10^3/uL MPV (7.0-11.0) fl Gran % (50.0-68.0) % Lymph % (Auto) (22.0-35.0) % [place] % (Auto) (1.0-6.0) % Eos % (Auto) (1.5-5.0) % Baso % (Auto) (0.0-3.0) % Gran # (1.4-6.5) Lymph # (1.2-3.4) [place] # (0.1-0.6) Eos # (0.0-0.7) Baso # (0.0-2.0) K/mm3 Sodium 145 (132-148) mmol/L Potassium 3.7 (3.6-5.0) mmol/L Chloride 115 H (95-110) mmol/L Carbon Dioxide 27 (21-33) mmol/L Anion Gap 7 L (10-20) BUN 20 (7-21) mg/dL Creatinine 0.8 (0.7-1.2) mg/dL Est GFR ( Amer) > 60 Est GFR (Non-Af Amer) > 60 POC Glucose (mg/dL) 112 H 65 (65-110) mg/dL Random Glucose 183 H (70-110) mg/dL Calcium 8.4 (8.4-10.5) mg/dL Phosphorus 2.9 (2.5-4.5) mg/dL Magnesium 2.0 (1.7-2.2) mg/dL Total Bilirubin 0.8 (0.2-1.3) mg/dL AST 32 (14-36) U/L ALT 43 (7-56) U/L Alkaline Phosphatase 44 (38-126) U/L Lactate Dehydrogenase 451 (333-699) U/L Total Creatine Kinase 84 (35-230) U/L Troponin I 0.17 H* D ng/mL Total Protein 5.4 L (5.8-8.3) g/dL Albumin 2.9 L (3.0-4.8) g/dL Globulin 2.5 gm/dL Albumin/Globulin Ratio 1.2 (1.1-1.8) Triglycerides (35-160) mg/dL Cholesterol (130-200) mg/dL LDL Cholesterol Direct (0-129) mg/dL HDL Cholesterol (29-60) mg/dL TSH 3rd Generation (0.46-4.68) mIU/mL Influenza Typ A,B (EIA) (NEGATIVE) Ur L.pneumophila Ag (NEGATIVE) 09/18/17 09/18/17 09/18/17 Range/Units 13:20 13:02 12:30 WBC (4.5-11.0) 10^3/ul RBC (3.5-6.1) 10^6/uL Hgb (12.0-16.0) g/dL Hct (36.0-48.0) % MCV (80.0-105.0) fl MCH (25.0-35.0) pg MCHC (31.0-37.0) g/dl RDW (11.5-14.5) % Plt Count (120.0-450.0) 10^3/uL MPV (7.0-11.0) fl Gran % (50.0-68.0) % Lymph % (Auto) (22.0-35.0) % [place] % (Auto) (1.0-6.0) % Eos % (Auto) (1.5-5.0) % Baso % (Auto) (0.0-3.0) % Gran # (1.4-6.5) Lymph # (1.2-3.4) [place] # (0.1-0.6) Eos # (0.0-0.7) Baso # (0.0-2.0) K/mm3 Sodium (132-148) mmol/L Potassium (3.6-5.0) mmol/L Chloride (95-110) mmol/L Carbon Dioxide (21-33) mmol/L Anion Gap (10-20) BUN (7-21) mg/dL Creatinine (0.7-1.2) mg/dL Est GFR ( Amer) Est GFR (Non-Af Amer) POC Glucose (mg/dL) 152 H (65-110) mg/dL Random Glucose (70-110) mg/dL Calcium (8.4-10.5) mg/dL Phosphorus (2.5-4.5) mg/dL Magnesium (1.7-2.2) mg/dL Total Bilirubin (0.2-1.3) mg/dL AST (14-36) U/L ALT (7-56) U/L Alkaline Phosphatase (38-126) U/L Lactate Dehydrogenase (333-699) U/L Total Creatine Kinase (35-230) U/L Troponin I ng/mL Total Protein (5.8-8.3) g/dL Albumin (3.0-4.8) g/dL Globulin gm/dL Albumin/Globulin Ratio (1.1-1.8) Triglycerides 209 H (35-160) mg/dL Cholesterol 126 L (130-200) mg/dL LDL Cholesterol Direct 84 (0-129) mg/dL HDL Cholesterol 25 L (29-60) mg/dL TSH 3rd Generation (0.46-4.68) mIU/mL Influenza Typ A,B (EIA) (NEGATIVE) Ur L.pneumophila Ag Negative (NEGATIVE) 09/18/17 09/18/17 Range/Units 11:43 06:42 WBC (4.5-11.0) 10^3/ul RBC (3.5-6.1) 10^6/uL Hgb (12.0-16.0) g/dL Hct (36.0-48.0) % MCV (80.0-105.0) fl MCH (25.0-35.0) pg MCHC (31.0-37.0) g/dl RDW (11.5-14.5) % Plt Count (120.0-450.0) 10^3/uL MPV (7.0-11.0) fl Gran % (50.0-68.0) % Lymph % (Auto) (22.0-35.0) % [place] % (Auto) (1.0-6.0) % Eos % (Auto) (1.5-5.0) % Baso % (Auto) (0.0-3.0) % Gran # (1.4-6.5) Lymph # (1.2-3.4) [place] # (0.1-0.6) Eos # (0.0-0.7) Baso # (0.0-2.0) K/mm3 Sodium (132-148) mmol/L Potassium (3.6-5.0) mmol/L Chloride (95-110) mmol/L Carbon Dioxide (21-33) mmol/L Anion Gap (10-20) BUN (7-21) mg/dL Creatinine (0.7-1.2) mg/dL Est GFR ( Amer) Est GFR (Non-Af Amer) POC Glucose (mg/dL) 302 H (65-110) mg/dL Random Glucose (70-110) mg/dL Calcium (8.4-10.5) mg/dL Phosphorus (2.5-4.5) mg/dL Magnesium (1.7-2.2) mg/dL Total Bilirubin (0.2-1.3) mg/dL AST (14-36) U/L ALT (7-56) U/L Alkaline Phosphatase (38-126) U/L Lactate Dehydrogenase (333-699) U/L Total Creatine Kinase (35-230) U/L Troponin I ng/mL Total Protein (5.8-8.3) g/dL Albumin (3.0-4.8) g/dL Globulin gm/dL Albumin/Globulin Ratio (1.1-1.8) Triglycerides (35-160) mg/dL Cholesterol (130-200) mg/dL LDL Cholesterol Direct (0-129) mg/dL HDL Cholesterol (29-60) mg/dL TSH 3rd Generation (0.46-4.68) mIU/mL Influenza Typ A,B (EIA) Negative for flu a/b (NEGATIVE) Ur L.pneumophila Ag (NEGATIVE) Laboratory Results - last 24 hr 09/18/17 09/18/17 09/18/17 06:42 11:43 12:30 WBC RBC Hgb Hct MCV MCH MCHC RDW Plt Count MPV Gran % Lymph % (Auto) [place] % (Auto) Eos % (Auto) Baso % (Auto) Gran # Lymph # [place] # Eos # Baso # Sodium Potassium Chloride Carbon Dioxide Anion Gap BUN Creatinine Est GFR ( Amer) Est GFR (Non-Af Amer) POC Glucose (mg/dL) 302 H Random Glucose Calcium Phosphorus Magnesium Total Bilirubin AST ALT Alkaline Phosphatase Lactate Dehydrogenase Total Creatine Kinase Troponin I Total Protein Albumin Globulin Albumin/Globulin Ratio Triglycerides Cholesterol LDL Cholesterol Direct HDL Cholesterol TSH 3rd Generation Influenza Typ A,B (EIA) Negative for flu a/b Ur L.pneumophila Ag Negative 09/18/17 09/18/17 09/18/17 13:02 13:20 17:51 WBC RBC Hgb Hct MCV MCH MCHC RDW Plt Count MPV Gran % Lymph % (Auto) [place] % (Auto) Eos % (Auto) Baso % (Auto) Gran # Lymph # [place] # Eos # Baso # Sodium Potassium Chloride Carbon Dioxide Anion Gap BUN Creatinine Est GFR ( Amer) Est GFR (Non-Af Amer) POC Glucose (mg/dL) 152 H 65 Random Glucose Calcium Phosphorus Magnesium Total Bilirubin AST ALT Alkaline Phosphatase Lactate Dehydrogenase Total Creatine Kinase Troponin I Total Protein Albumin Globulin Albumin/Globulin Ratio Triglycerides 209 H Cholesterol 126 L LDL Cholesterol Direct 84 HDL Cholesterol 25 L TSH 3rd Generation Influenza Typ A,B (EIA) Ur L.pneumophila Ag 09/19/17 09/19/17 09/19/17 00:51 06:00 06:00 WBC RBC Hgb Hct MCV MCH MCHC RDW Plt Count MPV Gran % Lymph % (Auto) [place] % (Auto) Eos % (Auto) Baso % (Auto) Gran # Lymph # [place] # Eos # Baso # Sodium 145 Potassium 3.7 Chloride 115 H Carbon Dioxide 27 Anion Gap 7 L BUN 20 Creatinine 0.8 Est GFR ( Amer) > 60 Est GFR (Non-Af Amer) > 60 POC Glucose (mg/dL) 112 H Random Glucose 183 H Calcium 8.4 Phosphorus 2.9 Magnesium 2.0 Total Bilirubin 0.8 AST 32 ALT 43 Alkaline Phosphatase 44 Lactate Dehydrogenase 451 Total Creatine Kinase 84 Troponin I 0.17 H* D Total Protein 5.4 L Albumin 2.9 L Globulin 2.5 Albumin/Globulin Ratio 1.2 Triglycerides Cholesterol LDL Cholesterol Direct HDL Cholesterol TSH 3rd Generation 0.27 L Influenza Typ A,B (EIA) Ur L.pneumophila Ag 09/19/17 09/19/17 06:00 06:11 WBC 10.8 RBC 3.60 Hgb 10.1 L Hct 31.6 L MCV 87.8 MCH 28.1 MCHC 32.0 RDW 16.6 H Plt Count 202 MPV 12.4 H Gran % 75.7 H Lymph % (Auto) 15.7 L [place] % (Auto) 8.0 H Eos % (Auto) 0.5 L Baso % (Auto) 0.1 Gran # 8.14 H Lymph # 1.7 [place] # 0.9 H Eos # 0.1 Baso # 0.01 Sodium Potassium Chloride Carbon Dioxide Anion Gap BUN Creatinine Est GFR ( Amer) Est GFR (Non-Af Amer) POC Glucose (mg/dL) 163 H Random Glucose Calcium Phosphorus Magnesium Total Bilirubin AST ALT Alkaline Phosphatase Lactate Dehydrogenase Total Creatine Kinase Troponin I Total Protein Albumin Globulin Albumin/Globulin Ratio Triglycerides Cholesterol LDL Cholesterol Direct HDL Cholesterol TSH 3rd Generation Influenza Typ A,B (EIA) Ur L.pneumophila Ag EKG/Cardiology Studies: Cardiology / EKG Studies 09/19/17 11:00 EKG [ELECTROCARDIOGRAM] Routine Comment: Reason For Exam: positive troponins Assessment/Plan - Assessment and Plan (Free Text) Plan: Patient seen and examined on rounds with resident, agree with note with following additions/exceptions: Patient is 77yo female with PMhx of HTN, NIDDM, HLD a/w PNA and respiratory failure requiring intubation.This morning patient placed on CPAP trial, off sedation, with good TV on ventilator, on Pressure Support 5/5, RSBI 40-50, patient successfully extubated to 2LNC. Patient was tolerating NC well, awake, alert, NAD, sat 98%. Two hours post extubation patient developed resp distress, starting to desaturate 80% on 2LNC, placed on NRB, sat 88%, STAT CXR done with diffuse bilateral pulm edema, given Lasix 80mg IV x 1, patient developed worsening of resp distress, required re-intubation. Currently intubated sedated , on PRVC 16/5/450/60%, sat 94%, EKG, Troponin ordered. CXR re-done with ETT confirmation, with improvement in pulm edema. Patient has UOP ~900cc s/p Lasix 80mg IV x 1. HD stable. ECHO done, results noted, DUplex of LE done, no DVT. CAP Respiratory failure HTN NIDDM Flash Pulm edema Hypothyroid Recommend: - cont with ventilatory support, low tidal vol ventilation, goal plateau<30 - broad spectrum antibiotics as per ID - check urine Lg, Strep - Follow up cultures - DC IVF - IV Lasix 40mg IV BID - monitor HH - follow up cardiology - repeat EKG - repeat cardiac enzymes - FS control - GI ppx - DVT ppx critical care time 45 minutes
--- NOTE | 2017-09-19 10:35 | CP.PCM.PN ---
Subjective - Date & Time of Evaluation Date of Evaluation: 09/19/17 Time of Evaluation: 09:10 - Subjective Subjective: Patient is now extubated, awake and alert, not breathing heavily at rest, still with cough, no abdominal pain, no diarrhea, no fevers overnight. Objective - Vital Signs/Intake and Output Vital Signs (last 24 hours): Temp Pulse Resp BP Pulse Ox 98.5 F 71 25 H 133/63 100 09/19/17 00:00 09/19/17 03:10 09/19/17 03:10 09/19/17 03:10 09/19/17 03:10 Intake and Output: 09/19/17 09/19/17 06:59 18:59 Intake Total 200 Balance 200 - Medications Medications: Current Medications Albuterol/Ipratropium (Duoneb 3 Mg/0.5 Mg (3 Ml) Ud) 3 ml IH [id number] SUSAN Last Admin: 09/19/17 02:35 Dose: 3 ml Albuterol/Ipratropium (Duoneb 3 Mg/0.5 Mg (3 Ml) Ud) 3 ml IH Q2H PRN PRN Reason: Shortness of Breath Aspirin (Ecotrin) 81 mg PO DAILY SUSAN Chlorhexidine Gluconate (Peridex) 15 ml PO Q4 PRN PRN Reason: ORAL CARE Enoxaparin Sodium (Lovenox) 60 mg SC Q12H SUSAN PRN Reason: Protocol Last Admin: 09/18/17 21:21 Dose: 60 mg Propofol (Diprivan) 1,000 mg in 100 mls @ 1.837 mls/hr IV .Q24H PRN; Protocol; 5 MCG/KG/MIN PRN Reason: TITRATE PER MD ORDER Last Admin: 09/19/17 02:40 Dose: 30 mcg/kg/min, 11.022 mls/hr Meropenem 1 gm/ Dextrose 100 mls @ 100 mls/hr IVPB Q8 SUSAN PRN Reason: Protocol Stop: 09/25/17 14:01 Last Admin: 09/19/17 06:03 Dose: 100 mls/hr Vancomycin HCl (Vancomycin 1gm) 1 gm in 250 mls @ 167 mls/hr IVPB Q12 SUSAN PRN Reason: Protocol Last Admin: 09/18/17 23:00 Dose: 167 mls/hr Doxycycline Hyclate 100 mg/ (Sodium Chloride) 100 mls @ 100 mls/hr IVPB Q12 SUSAN PRN Reason: Protocol Last Admin: 09/18/17 21:14 Dose: 100 mls/hr Sodium Chloride (Sodium Chloride 0.9%) 1,000 mls @ 75 mls/hr IV .[id number] [facility] Last Admin: 09/19/17 06:13 Dose: 75 mls/hr Insulin Human Regular (Humulin R Med) 0 units SC Q6 SUSAN PRN Reason: Protocol Last Admin: 09/19/17 06:12 Dose: Not Given Metoprolol Tartrate (Lopressor) 25 mg PO BID [facility] Last Admin: 09/18/17 18:50 Dose: Not Given Midazolam HCl (Versed Inj) 1 mg IVP Q2H PRN PRN Reason: Agitation Last Admin: 09/18/17 21:18 Dose: 1 mg Pantoprazole Sodium (Protonix Inj) 40 mg IVP DAILY [facility] Last Admin: 09/18/17 11:03 Dose: 40 mg - Labs Labs: 09/19/17 06:00 09/18/17 05:30 PT 12.6 SECONDS (9.4-12.5) H 09/18/17 06:30 INR 1.14 (0.93-1.08) H 09/18/17 06:30 APTT 28.1 Seconds (25.1-36.5) 09/18/17 06:30 - Constitutional Appears: Chronically Ill - Head Exam Head Exam: NORMAL INSPECTION - ENT Exam ENT Exam: Mucous Membranes Moist - Neck Exam Neck Exam: absent: Lymphadenopathy, Meningismus - Respiratory Exam Respiratory Exam: Decreased Breath Sounds (at the bases with some crackles) - Cardiovascular Exam Cardiovascular Exam: +S1, +S2 - GI/Abdominal Exam GI & Abdominal Exam: Soft. absent: Tenderness Assessment and Plan - Assessment and Plan (Free Text) Plan: Assessment Consider severe sepsis with hypoxic respiratory failure, now extubated due to bilateral lower lobe pneumonia, severe community-acquired pneumonia HTN dyslipidemia DM hypothyroidism Plan continue Vancomycin, Merrem and Doxycycline day 2 pending final sputum cx, blood cx; PCT is low; follow up urine Legionella Ag; follow up rapid Influenza test; WBC count was elevated on admission but has now normalized will continue to monitor clinically discussed with family and ICU team
[2017-09-19] MEDS ORDERED: Propofol 10 mg/ml 1,000 MG/100 ML VIAL ONE (11:16)
[2017-09-19] MEDS ORDERED: Propofol 10 mg/ml Inj (20 ML) ONE (11:19)
--- NOTE | 2017-09-19 11:37 | RAD ---
HISTORY: chest pain COMPARISON: 09/19/2017 FINDINGS: LUNGS: There is recurrence of the pattern of CHF with severe vascular and interstitial congestion PLEURA: No significant pleural effusion identified, no pneumothorax apparent. CARDIOVASCULAR: Mild cardiomegaly OSSEOUS STRUCTURES: No significant abnormalities. VISUALIZED UPPER ABDOMEN: Normal. OTHER FINDINGS: None. IMPRESSION: There is recurrence of the pattern of CHF with severe vascular and interstitial congestion
--- NOTE | 2017-09-19 11:58 | PCM.PROC ---
Procedures Attestation:: I certify that I have explained the specified Operation(s) or Procedure(s), risks, benefits and reasonable alternatives to the Patient and/or other person responsible. The opportunity was given to ask questions and all questions answered - Intubation Time Out Performed: Yes Sedative: Other (propofol) Laryngoscope: Herson ET Tube Size: 7.5 ET Tube Uncuffed: No ET Tube Secured Locarion: Teeth ET Tube Placement Confirmation: Visualized Passing Through Cords, Breath Sounds Equal Bilaterally, No Breath Sounds Over Epigastrum, Confirmation w/Capnometry Patient Tolerated Procedure: Well Procedure Immediate Complications: None
--- NOTE | 2017-09-19 13:08 | RAD ---
HISTORY: intubation COMPARISON: Earlier same day FINDINGS: LUNGS: There is a pattern of severe CHF with vascular congestion and interstitial edema. This has shown slight improvement after intubation. The endotracheal tube is in satisfactory position PLEURA: No significant pleural effusion identified, no pneumothorax apparent. CARDIOVASCULAR: Mild cardiomegaly OSSEOUS STRUCTURES: No significant abnormalities. VISUALIZED UPPER ABDOMEN: Normal. OTHER FINDINGS: None. IMPRESSION: There is a pattern of severe CHF with vascular congestion and interstitial edema. This has shown slight improvement after intubation. The endotracheal tube is in satisfactory position
[2017-09-19] MEDS: Enoxaparin 60 mg Syringe SC SCH ×2 (14:45→22:14)
--- NOTE | 2017-09-19 14:48 | PN ---
DATE: REASON FOR CONSULTATION: Respiratory failure, status post intubated, cardiac evaluation, ST-T changes and pneumonia. SUBJECTIVE: The patient is weak being intubated. Denies any chest pain. Family is at the bedside. PHYSICAL EXAMINATION: As follows: GENERAL: Not in apparent distress, but is still being intubated and wanted to discontinue her vent. VITAL SIGNS: Temperature afebrile, heart rate 83, and blood pressure 149/66. HEENT: PERRLA. Extraocular muscles are intact. NECK: Supple. No carotid bruit or thyromegaly. CHEST: Clear to auscultation. HEART: S1 and S2 regular. ABDOMEN: Soft. EXTREMITIES: Clubbing and cyanosis negative. LABORATORY DATA: WBC 10.8, hemoglobin 10.1, hematocrit 31.6, and platelet count 202. Chemistry shows sodium 145, potassium 3.0, chloride 115, carbon dioxide 27, anion gap 7, BUN 20, and creatinine 0.8. Troponin 0.17. Total protein 5.4, albumin 2.9, and albumin-globulin ratio 1.2. The patient had echocardiography done yesterday, that showed ejection fraction of 55%, no aortic regurgitation, [id number] mitral regurgitation, aortic sclerosis with mild aortic stenosis, [id number] tricuspid regurgitation with RV systolic pressure 62. No vegetation noted. Lower extremity duplex scan shows no sonographic evidence of DVT and D-dimer positive. IMPRESSION: A 77-year-old female with past medical history significant for hypertension, type 2 diabetes, and hyperlipidemia who was in [place], hypothyroidism admitted with sepsis, elevated WBC, pneumonia, respiratory failure, first troponin negative, second troponin was negative and third troponin is 0.17. She is still being intubated, weak , denies any chest pain. Rule out coronary artery disease (CAD), rule out [id number] myocardial infarction, rule out pulmonary embolism (PE). D-dimer was positive. RECOMMENDATION: Treat as unstable angina. Continue Lovenox, continue low dose beta maci and continue baby aspirin. We will discuss with automobile tester, reference CT angio to rule out PE. The patient had a CT on admission that shows cardiomegaly, moderate interstitial marking, consultation consistent with pneumonia and effusion, possibly this event happened acute respiratory failure secondary to pneumonia/sepsis, doubt it is NV. This borderline troponin positive could be secondary to hemodynamic instability, but cannot rule out underlying coronary artery disease. For now, we will treat as unstable angina, ACS. Once the patient gets extubated and see the trend of the troponin, consider cardiac catheterization versus stress depending upon the clinical situation, most likely cardiac catheterization, but since the patient is asymptomatic, there is no urgency as the picture more points towards the infectious etiology for the respiratory failure. EKG also shows sinus tachycardia admitting with ST-T changes. Repeat EKG is pending. Repeat chest x-ray shows some improvement in the consolidation. Echo shows preserved LV function, mild aortic stenosis, aortic sclerosis, no significant AR. [id number] tricuspid regurgitation with RV systolic pressure of 63 and [id number] MR. For now, continue enoxaparin 50 b.i.d. and continue antibiotics. We will start baby aspirin. Continue metoprolol 25 b.i.d. We will follow with you. Discussed with the patient's daughter. Edwin Baumann MD
--- NOTE | 2017-09-19 14:48 | RAD ---
HISTORY: pulm edema COMPARISON: 09/19/2017 at 11:54 a.m. FINDINGS: LUNGS: No pulmonary infiltrate. Resolved interstitial prominence and Miguel B-lines seen on prior examination. PLEURA: No significant pleural effusion identified, no pneumothorax apparent. CARDIOVASCULAR: Normal heart size. Resolved pulmonary vascular congestion. Endotracheal tube unchanged. Nasogastric tube positioned with its tip in the left upper quadrant of the abdomen. There is a linear opacity overlying the distal trachea and proximal right mainstem bronchus of uncertain significance. This is not seen on prior examination and does not appear to represent an externally placed tube or catheter. Repeat examination is advised OSSEOUS STRUCTURES: No significant abnormalities. VISUALIZED UPPER ABDOMEN: Normal. OTHER FINDINGS: None. IMPRESSION: Resolved evidence of congestive heart failure. No pulmonary edema. No pulmonary infiltrate. Linear opacity overlying distal trachea and proximal right mainstem bronchus may represent artifact on patient's skin surface or clothing. Please repeat chest radiograph to assess this linear opacity.
--- NOTE | 2017-09-19 16:07 | RAD ---
HISTORY: confirm OG and ET tube position COMPARISON: 09/19/2017 FINDINGS: LUNGS: Possible subsegmental atelectasis at left base. No infiltrate elsewhere. PLEURA: No significant pleural effusion identified, no pneumothorax apparent. CARDIOVASCULAR: Normal heart size. Endotracheal tube and nasogastric tube unchanged. Once again, there is a linear opacity overlying the distal trachea and right mainstem bronchus. It is less well-defined than on prior examination. Significance unclear. Possible extrinsic artifact. OSSEOUS STRUCTURES: No significant abnormalities. VISUALIZED UPPER ABDOMEN: Normal. OTHER FINDINGS: None. IMPRESSION: Curvilinear density again overlying distal trachea and right mainstem bronchus, possibly artifact. Possible linear atelectasis at left base. ET tube and NG tube unchanged.melchor
[2017-09-19] MEDS ORDERED: Midazolam 100 mg/100ml in NS 100 MG/100 ML SOL IV PRN (16:50)
--- NOTE | 2017-09-19 22:06 | CT ---
EXAM: CT Chest Without Intravenous Contrast CLINICAL HISTORY: 77 years old, female; Signs and symptoms; Other: Respiratory distress; Additional info: R mainstem bronchus curvilinear density TECHNIQUE: Axial computed tomography images of the chest without intravenous contrast. All CT scans at this facility use one or more dose reduction techniques, viz.: automated exposure control; ma/kV adjustment per patient size (including targeted exams where dose is matched to indication; i.e. head); or iterative reconstruction technique. MIP reconstructed images were created and reviewed. Coronal and sagittal reformatted images were created and reviewed. COMPARISON: CT - CHEST W/O CONTRAST 2017-09-17 23:11 EXAM: FINDINGS: Lungs: No mass. Moderate bilateral pleural effusions, with adjacent compressive atelectasis and nodular consolidation. Endotracheal tube, in good position. Pleural spaces: No significant effusion. No pneumothorax. Heart: The heart is enlarged, without significant pericardial effusion. Within the left atrium, is a 13 mm curvilinear density, which in retrospect was present on the previous examination performed 09/17/2017. This finding is of uncertain clinical significance. No abnormal curvilinear density is identified within the right mainstem bronchus, as described in the patient's history. Significant valvular calcifications are present, specifically within the mitral and aortic valves. Vasculature: Calcified atherosclerotic disease. Calcified coronary artery disease. Lymph nodes: No enlarged lymph nodes. Bones: No acute fracture. Nasogastric tube within the stomach. IMPRESSION: Interval increase in the bilateral pleural effusions, since previous examination performed 2 days earlier. Adjacent compressive atelectasis a nodular consolidation persists. 13 mm curvilinear density within the left atrium, which in retrospect was present on the previous examination performed 2 days earlier - a finding of uncertain clinical significance no abnormal curvilinear density is identified within the right mainstem bronchus, as described in patients history. Significant vascular calcifications, as detailed above. Nasogastric tube and endotracheal tube in good position.
--- NOTE | 2017-09-19 22:09 | CARD ---
APPROVED REPORT EKG Measurement Heart [id number] <Conclusion> Normal sinus rhythm Possible Left atrial enlargement Borderline ECG
--- NOTE | 2017-09-19 22:27 | PN ---
DATE: 09/19/2017 SUBJECTIVE: The patient is intubated. PHYSICAL EXAMINATION: VITAL SIGNS: Temperature is 98.5, pulse is 100, blood pressure 157/74, respiratory rate is 23. GENERAL: The patient is lying in bed, flat, comfortable. HEENT: No oral lesion. Anicteric sclerae. Moist mucosa. NECK: No JVD, adenopathy, or thyromegaly. CARDIOVASCULAR: S1 and S2, regular. No murmurs, rubs, or gallops. LUNGS: Clear to auscultation bilaterally. No wheeze, rales, or rhonchi. ABDOMEN: Bowel sounds are positive, soft, nontender and nondistended. EXTREMITIES: No cyanosis, clubbing or edema. LABORATORY DATA: White count of 10.8, hemoglobin 10.1, creatinine is 0.8. ASSESSMENT: 1. Sepsis. 2. Respiratory failure, on ventilator. 3. Diabetes type 2. 4. Hypertension. 5. Dyslipidemia. 6. Hypomagnesemia. PLAN: The patient is currently improving. The white count has improved. She has blood cultures and urine cultures that are negative. She is being followed by Infectious Disease. She has community-acquired pneumonia. The patient is on doxycycline for antibiotics. She is receiving Lasix daily. She is on Lovenox for anticoagulation. She is on meropenem for her antibiotics. She is also taking vancomycin. She is on Lasix twice a day. She is being followed by Dr. Baumann and Dr. Teixeira from [facility]. She had a chest x-ray that shows severe congestive heart failure. This finding improved after intubation. She was attempted to be weaned, but she had to be reintubated. I did speak to the patient's daughter at the bedside this morning to give her an update on the patient's diagnosis and plan of care. She remains critically ill. Dominic Gary MD
[2017-09-20] MEDS: Insulin Reg-MEDIUM-Coverage SC SCH ×3 (00:08→19:00)
[2017-09-20] MEDS: Albuterol-Ipratrop 3 mg / 0.5 (3 ml) UD IH SCH ×7 (00:08→23:22)
[2017-09-20] MEDS: Propofol 10 mg/ml 1,000 MG/100 ML VIAL IV PRN ×2 (02:37→08:49)
[2017-09-20] MEDS: Meropenem 1 GM in Dextrose 5% In Water 100 ML IVPB SCH ×3 (05:05→21:45)
[2017-09-20 06:38] LABS: ARTERIAL BLOOD GAS HCO3 28.7 mmol/L (21-28); ARTERIAL BLOOD GAS O2 CAPACITY 12.9 mL/dl (16-24); ARTERIAL BLOOD GAS O2 CONTENT 12.5 ML/dl (15-23); ARTERIAL BLOOD GAS PH 7.51 (7.35-7.45); ARTERIAL BLOOD HGB O2 SAT 93.4 % (95.0-98.0); CARBOXYHEMOGLOBIN 2.5 % (0.5-1.5); HHB 2.7 % (0-5); METHEMOGLOBIN 1.4 % (0.0-3.0)
[2017-09-20 07:16] LABS: BASO # 0.01 K/mm3 (0.0-2.0); BASO % 0.1 % (0.0-3.0); EOS % 0.3 % (1.5-5.0); GRAN # 8.39 (1.4-6.5); GRAN % 75.3 % (50.0-68.0); HEMATOCRIT 33.5 % (36.0-48.0); LYMPH # 1.9 (1.2-3.4); LYMPH % 16.9 % (22.0-35.0); MEAN CELL VOLUME 85.5 fl (80.0-105.0); MEAN CORPUSCULAR HEMOGLOBIN 27.8 pg (25.0-35.0); MEAN CORPUSCULAR HGB CONC 32.5 g/dl (31.0-37.0); MEAN PLATELET VOLUME 12.5 fl (7.0-11.0); MONO # 0.8 (0.1-0.6); MONO % 7.4 % (1.0-6.0); RED CELL DISTRIBUTION WIDTH 16.1 % (11.5-14.5); WHITE BLOOD COUNT 11.1 10^3/ul (4.5-11.0)
[2017-09-20 07:55] LABS: ALB/GLOB RATIO 1.2 (1.1-1.8); ALKALINE PHOSPHATASE 55 U/L (38-126); ALT/SGPT 36 U/L (7-56); AST/SGOT 24 U/L (14-36); BILIRUBIN,TOTAL 0.7 mg/dL (0.2-1.3); BLOOD UREA NITROGEN 22 mg/dL (7-21); CALCIUM 8.9 mg/dL (8.4-10.5); CARBON DIOXIDE 31 mmol/L (21-33); CHLORIDE 108 mmol/L (98-107); GFR AFRICAN-AMERICAN > 60; GLUCOSE,RANDOM 166 mg/dL (70-110); SODIUM 148 mmol/L (132-148); TOTAL PROTEIN 6.3 g/dL (5.8-8.3); TROPONIN I 0.26 ng/mL
[2017-09-20 08:06] LABS: POTASSIUM 2.9 mmol/L (3.6-5.0)
[2017-09-20] MEDS ORDERED: Potassium Chloride 20 mEq ER Tab PO ONE ×2 (08:10→13:00)
[2017-09-20] MEDS ORDERED: Potassium Chloride 40 mEq/30 ml LIQ UD PO STA (09:05)
--- NOTE | 2017-09-20 09:10 | CP.CCUPN ---
<Pradeep Arias - Last Filed: 09/20/17 13:19> CCU Subjective - Physician Review Subjective (Free Text): 09/20/17 09:07 Pradeep Arias D.O. PGY-2, Critical Care Progress Note 77 year old female with a PMHx of hypertension, hyperlipidemia, non-insulin dependent diabetes, and hypothyroidism, who was admitted for evaluation and treatment of severe respiratory distress and sepsis. Patient was seen and examined at bedside with son present. Patient at this time is intubated and on sedation and unable to provide any information. Patient yesterday was extubated and did well for about 2 hours but unfortunately developed flash pulmonary edema and required re-intubation. No acute events overnight. Case discussed with nursing staff. CCU Objective - Vital Signs / Intake & Output Intake and Output (Last 8hrs): Intake & Output 09/19/17 09/20/17 09/20/17 22:59 06:59 14:59 Intake Total 1010 878 100 Output Total 19990 Balance -990 -1322 100 Intake: IV 990 878 100 Right Forearm 810 778 Oral 0 Tube Feeding 20 Output: Urine 1999 2199 Urethral ([place]) 1999 2199 Other: # Bowel Movements 1 - Physical Exam Head: Positive for: Atraumatic, Normocephalic Pupils: Positive for: PERRL Extroacular Muscles: Positive for: EOMI Conjunctiva: Positive for: Normal Ears: Positive for: Normal Mouth: Positive for: Moist Mucous Membranes, Other (intubated, OG tube) Pharnyx: Positive for: Normal. Negative for: ERYTHEMA, EXUDATE, TONSILS ENLARGED Nose (Internal): Positive for: Normal Inspection Neck: Positive for: Trachea Midline. Negative for: JVD Respiratory/Chest: Positive for: Good Air Exchange, Other (improved in bibasilar crackles, mild residual on right lower). Negative for: Accessory Muscle Use Cardiovascular: Positive for: Regular Rate and Rhythm, Normal S1, S2. Negative for: Murmurs, Rub, Gallop Abdomen: Positive for: Normal Bowel Sounds. Negative for: Tenderness, Distention, Peritoneal Signs Upper Extremity: Positive for: Normal Inspection Lower Extremity: Positive for: Normal Inspection. Negative for: Edema Neurological: Positive for: Other (sedated) Skin: Positive for: Warm, Dry. Negative for: Rashes - Medications Active Medications: Active Medications Generic Name Dose Route Start Last Admin Trade Name Freq PRN Reason Stop Dose Admin Albuterol/Ipratropium 3 ml 09/17/17 23:30 09/20/17 07:59 Duoneb 3 Mg/0.5 Mg (3 Ml) Ud IH 3 ml [id number] EDISON Administration Albuterol/Ipratropium 3 ml 09/17/17 22:33 Duoneb 3 Mg/0.5 Mg (3 Ml) Ud IH Q2H PRN Shortness of Breath Aspirin 81 mg 09/19/17 10:00 09/19/17 16:18 Ecotrin PO 81 mg DAILY EDISON Administration Chlorhexidine Gluconate 15 ml 09/18/17 04:16 Peridex PO Q4 PRN ORAL CARE Enoxaparin Sodium 60 mg 09/18/17 22:00 09/19/17 22:14 Lovenox SC 60 mg Q12H EDISON Administration Protocol Furosemide 40 mg 09/19/17 22:00 09/19/17 22:07 Lasix IVP 40 mg Q12 EDISON Administration Meropenem 1 gm/ Dextrose 100 mls @ 100 mls/hr 09/18/17 14:00 09/20/17 05:05 IVPB 09/25/17 14:01 100 mls/hr Q8 EDISON Administration Protocol Vancomycin HCl 1 gm in 250 mls @ 167 mls/hr 09/18/17 10:00 09/19/17 21:49 Vancomycin 1gm IVPB 167 mls/hr Q12 EDISON Administration Protocol Doxycycline Hyclate 100 mg/ 100 mls @ 100 mls/hr 09/18/17 10:00 09/19/17 21: 47 Sodium Chloride IVPB 100 mls/hr Q12 EDISON Administration Protocol Propofol 1,000 mg in 100 mls @ 1.932 mls/hr 09/19/17 13:44 09/20/17 08:49 Diprivan IV 40 mcg/kg/min .Q24H PRN 15.458 mls/hr TITRATE PER MD ORDER Administration Protocol 5 MCG/KG/MIN Midazolam 100 mg/100ml in NS 100 mg in 100 mls @ 2 mls/hr 09/19/17 16:50 17:18 Midazolam 100 Mg/100ml In Ns IV 2 mg/hr .Q24H PRN 2 mls/hr Agitation Administration Protocol 2 MG/HR Potassium Chloride 10 meq in 100 mls @ 100 mls/hr 09/20/17 08:15 09/20/17 08: 55 Potassium Chloride 10 Meq/100 Ml IVPB 09/20/17 11:14 100 mls/hr Q2H EDISON Administration Insulin Human Regular 0 units 09/19/17 00:44 09/20/17 00:08 Humulin R Med SC Not Given Q6 EDISON Protocol Metoprolol Tartrate 25 mg 09/18/17 18:00 09/19/17 16:19 Lopressor PO 25 mg BID EDISON Administration Pantoprazole Sodium 40 mg 09/18/17 10:00 09/19/17 09:47 Protonix Inj IVP 40 mg DAILY EDISON Administration Potassium Chloride 40 meq 09/20/17 09:05 Potassium Chloride Oral Soln PO 09/20/17 09:06 STAT STA Potassium Chloride 40 meq 09/20/17 13:30 Potassium Chloride Oral Soln PO 09/20/17 13:31 ONCE ONE - Patient Studies Lab Studies: Microbiology Studies 09/17/17 21:50 Blood Culture - Preliminary Blood-Venous NO GROWTH AFTER 48 HOURS 09/17/17 23:45 MRSA Culture (Admit) - Final Nose MRSA NOT DETECTED 09/18/17 12:30 Gram Stain - Final Sputum Sputum Culture - Preliminary NORMAL ORAL LIZZETH 09/18/17 11:43 Urine Culture - Final Urine,[place] No Growth (<1,000 CFU/ML) Lab Studies 09/20/17 09/20/17 09/20/17 Range/Units 06:50 06:50 06:15 WBC 11.1 H (4.5-11.0) 10^3/ul RBC 3.92 (3.5-6.1) 10^6/uL Hgb 10.9 L (12.0-16.0) g/dL Hct 33.5 L (36.0-48.0) % MCV 85.5 (80.0-105.0) fl MCH 27.8 (25.0-35.0) pg MCHC 32.5 (31.0-37.0) g/dl RDW 16.1 H (11.5-14.5) % Plt Count 251 (120.0-450.0) 10^3/uL MPV 12.5 H (7.0-11.0) fl Gran % 75.3 H (50.0-68.0) % Lymph % (Auto) 16.9 L (22.0-35.0) % [place] % (Auto) 7.4 H (1.0-6.0) % Eos % (Auto) 0.3 L (1.5-5.0) % Baso % (Auto) 0.1 (0.0-3.0) % Gran # 8.39 H (1.4-6.5) Lymph # 1.9 (1.2-3.4) [place] # 0.8 H (0.1-0.6) Eos # 0.0 (0.0-0.7) Baso # 0.01 (0.0-2.0) K/mm3 pCO2 36 (35-45) mm/Hg pO2 60.0 L (80-100) mm/Hg HCO3 28.7 H (21-28) mmol/L ABG pH 7.51 H (7.35-7.45) ABG Total CO2 29.8 H (22-28) mmol.L ABG O2 Saturation 97.2 (95-98) % ABG O2 Content 12.5 L (15-23) ML/dl ABG Base Excess 5.4 H (-2.0-3.0) mmol/L ABG Hemoglobin 9.5 L (11.7-17.4) g/dL ABG Carboxyhemoglobin 2.5 H (0.5-1.5) % POC ABG HHb (Measured) 2.7 (0-5) % ABG Methemoglobin 1.4 (0.0-3.0) % ABG O2 Capacity 12.9 L (16-24) mL/dl Hgb O2 Saturation 93.4 L (95.0-98.0) % FiO2 60.0 % Sodium 148 (132-148) mmol/L Potassium 2.9 L* D (3.6-5.0) mmol/L Chloride 108 H (98-107) mmol/L Carbon Dioxide 31 (21-33) mmol/L Anion Gap 12 (10-20) BUN 22 H (7-21) mg/dL Creatinine 0.9 (0.7-1.2) mg/dl Est GFR ( Amer) > 60 Est GFR (Non-Af Amer) > 60 POC Glucose (mg/dL) (65-110) mg/dL Random Glucose 166 H (70-110) mg/dL Hemoglobin A1c (4.2-6.5) % Calcium 8.9 (8.4-10.5) mg/dL Total Bilirubin 0.7 (0.2-1.3) mg/dL AST 24 (14-36) U/L ALT 36 (7-56) U/L Alkaline Phosphatase 55 (38-126) U/L Lactate Dehydrogenase 522 (333-699) U/L Total Creatine Kinase 107 (35-230) U/L Troponin I 0.26 H* ng/mL Total Protein 6.3 (5.8-8.3) g/dL Albumin 3.4 (3.0-4.8) g/dL Globulin 2.8 gm/dL Albumin/Globulin Ratio 1.2 (1.1-1.8) 09/20/17 09/19/17 09/19/17 Range/Units 01:18 15:20 14:29 WBC (4.5-11.0) 10^3/ul RBC (3.5-6.1) 10^6/uL Hgb (12.0-16.0) g/dL Hct (36.0-48.0) % MCV (80.0-105.0) fl MCH (25.0-35.0) pg MCHC (31.0-37.0) g/dl RDW (11.5-14.5) % Plt Count (120.0-450.0) 10^3/uL MPV (7.0-11.0) fl Gran % (50.0-68.0) % Lymph % (Auto) (22.0-35.0) % [place] % (Auto) (1.0-6.0) % Eos % (Auto) (1.5-5.0) % Baso % (Auto) (0.0-3.0) % Gran # (1.4-6.5) Lymph # (1.2-3.4) [place] # (0.1-0.6) Eos # (0.0-0.7) Baso # (0.0-2.0) K/mm3 pCO2 (35-45) mm/Hg pO2 (80-100) mm/Hg HCO3 (21-28) mmol/L ABG pH (7.35-7.45) ABG Total CO2 (22-28) mmol.L ABG O2 Saturation (95-98) % ABG O2 Content (15-23) ML/dl ABG Base Excess (-2.0-3.0) mmol/L ABG Hemoglobin (11.7-17.4) g/dL ABG Carboxyhemoglobin (0.5-1.5) % POC ABG HHb (Measured) (0-5) % ABG Methemoglobin (0.0-3.0) % ABG O2 Capacity (16-24) mL/dl Hgb O2 Saturation (95.0-98.0) % FiO2 % Sodium (132-148) mmol/L Potassium (3.6-5.0) mmol/L Chloride (98-107) mmol/L Carbon Dioxide (21-33) mmol/L Anion Gap (10-20) BUN (7-21) mg/dL Creatinine (0.7-1.2) mg/dl Est GFR ( Amer) Est GFR (Non-Af Amer) POC Glucose (mg/dL) 236 H (65-110) mg/dL Random Glucose (70-110) mg/dL Hemoglobin A1c (4.2-6.5) % Calcium (8.4-10.5) mg/dL Total Bilirubin (0.2-1.3) mg/dL AST (14-36) U/L ALT (7-56) U/L Alkaline Phosphatase (38-126) U/L Lactate Dehydrogenase (333-699) U/L Total Creatine Kinase (35-230) U/L Troponin I 0.32 H* D 0.82 H* D ng/mL Total Protein (5.8-8.3) g/dL Albumin (3.0-4.8) g/dL Globulin gm/dL Albumin/Globulin Ratio (1.1-1.8) 09/19/17 09/19/17 Range/Units 10:55 06:00 WBC (4.5-11.0) 10^3/ul RBC (3.5-6.1) 10^6/uL Hgb (12.0-16.0) g/dL Hct (36.0-48.0) % MCV (80.0-105.0) fl MCH (25.0-35.0) pg MCHC (31.0-37.0) g/dl RDW (11.5-14.5) % Plt Count (120.0-450.0) 10^3/uL MPV (7.0-11.0) fl Gran % (50.0-68.0) % Lymph % (Auto) (22.0-35.0) % [place] % (Auto) (1.0-6.0) % Eos % (Auto) (1.5-5.0) % Baso % (Auto) (0.0-3.0) % Gran # (1.4-6.5) Lymph # (1.2-3.4) [place] # (0.1-0.6) Eos # (0.0-0.7) Baso # (0.0-2.0) K/mm3 pCO2 (35-45) mm/Hg pO2 (80-100) mm/Hg HCO3 (21-28) mmol/L ABG pH (7.35-7.45) ABG Total CO2 (22-28) mmol.L ABG O2 Saturation (95-98) % ABG O2 Content (15-23) ML/dl ABG Base Excess (-2.0-3.0) mmol/L ABG Hemoglobin (11.7-17.4) g/dL ABG Carboxyhemoglobin (0.5-1.5) % POC ABG HHb (Measured) (0-5) % ABG Methemoglobin (0.0-3.0) % ABG O2 Capacity (16-24) mL/dl Hgb O2 Saturation (95.0-98.0) % FiO2 % Sodium (132-148) mmol/L Potassium (3.6-5.0) mmol/L Chloride (98-107) mmol/L Carbon Dioxide (21-33) mmol/L Anion Gap (10-20) BUN (7-21) mg/dL Creatinine (0.7-1.2) mg/dl Est GFR ( Amer) Est GFR (Non-Af Amer) POC Glucose (mg/dL) 173 H (65-110) mg/dL Random Glucose (70-110) mg/dL Hemoglobin A1c 7.2 H (4.2-6.5) % Calcium (8.4-10.5) mg/dL Total Bilirubin (0.2-1.3) mg/dL AST (14-36) U/L ALT (7-56) U/L Alkaline Phosphatase (38-126) U/L Lactate Dehydrogenase (333-699) U/L Total Creatine Kinase (35-230) U/L Troponin I ng/mL Total Protein (5.8-8.3) g/dL Albumin (3.0-4.8) g/dL Globulin gm/dL Albumin/Globulin Ratio (1.1-1.8) Laboratory Results - last 24 hr 09/19/17 09/19/17 09/19/17 06:00 10:55 14:29 WBC RBC Hgb Hct MCV MCH MCHC RDW Plt Count MPV Gran % Lymph % (Auto) [place] % (Auto) Eos % (Auto) Baso % (Auto) Gran # Lymph # [place] # Eos # Baso # pCO2 pO2 HCO3 ABG pH ABG Total CO2 ABG O2 Saturation ABG O2 Content ABG Base Excess ABG Hemoglobin ABG Carboxyhemoglobin POC ABG HHb (Measured) ABG Methemoglobin ABG O2 Capacity Hgb O2 Saturation FiO2 Sodium Potassium Chloride Carbon Dioxide Anion Gap BUN Creatinine Est GFR ( Amer) Est GFR (Non-Af Amer) POC Glucose (mg/dL) 173 H 236 H Random Glucose Hemoglobin A1c 7.2 H Calcium Total Bilirubin AST ALT Alkaline Phosphatase Lactate Dehydrogenase Total Creatine Kinase Troponin I Total Protein Albumin Globulin Albumin/Globulin Ratio 09/19/17 09/20/17 09/20/17 15:20 01:18 06:15 WBC RBC Hgb Hct MCV MCH MCHC RDW Plt Count MPV Gran % Lymph % (Auto) [place] % (Auto) Eos % (Auto) Baso % (Auto) Gran # Lymph # [place] # Eos # Baso # pCO2 36 pO2 60.0 L HCO3 28.7 H ABG pH 7.51 H ABG Total CO2 29.8 H ABG O2 Saturation 97.2 ABG O2 Content 12.5 L ABG Base Excess 5.4 H ABG Hemoglobin 9.5 L ABG Carboxyhemoglobin 2.5 H POC ABG HHb (Measured) 2.7 ABG Methemoglobin 1.4 ABG O2 Capacity 12.9 L Hgb O2 Saturation 93.4 L FiO2 60.0 Sodium Potassium Chloride Carbon Dioxide Anion Gap BUN Creatinine Est GFR ( Amer) Est GFR (Non-Af Amer) POC Glucose (mg/dL) Random Glucose Hemoglobin A1c Calcium Total Bilirubin AST ALT Alkaline Phosphatase Lactate Dehydrogenase Total Creatine Kinase Troponin I 0.82 H* D 0.32 H* D Total Protein Albumin Globulin Albumin/Globulin Ratio 09/20/17 09/20/17 06:50 06:50 WBC 11.1 H RBC 3.92 Hgb 10.9 L Hct 33.5 L MCV 85.5 MCH 27.8 MCHC 32.5 RDW 16.1 H Plt Count 251 MPV 12.5 H Gran % 75.3 H Lymph % (Auto) 16.9 L [place] % (Auto) 7.4 H Eos % (Auto) 0.3 L Baso % (Auto) 0.1 Gran # 8.39 H Lymph # 1.9 [place] # 0.8 H Eos # 0.0 Baso # 0.01 pCO2 pO2 HCO3 ABG pH ABG Total CO2 ABG O2 Saturation ABG O2 Content ABG Base Excess ABG Hemoglobin ABG Carboxyhemoglobin POC ABG HHb (Measured) ABG Methemoglobin ABG O2 Capacity Hgb O2 Saturation FiO2 Sodium 148 Potassium 2.9 L* D Chloride 108 H Carbon Dioxide 31 Anion Gap 12 BUN 22 H Creatinine 0.9 Est GFR ( Amer) > 60 Est GFR (Non-Af Amer) > 60 POC Glucose (mg/dL) Random Glucose 166 H Hemoglobin A1c Calcium 8.9 Total Bilirubin 0.7 AST 24 ALT 36 Alkaline Phosphatase 55 Lactate Dehydrogenase 522 Total Creatine Kinase 107 Troponin I 0.26 H* Total Protein 6.3 Albumin 3.4 Globulin 2.8 Albumin/Globulin Ratio 1.2 EKG/Cardiology Studies: Cardiology / EKG Studies 09/19/17 11:00 EKG [ELECTROCARDIOGRAM] Routine Comment: Reason For Exam: positive troponins Fingerstick Blood Sugar Results: 169 Assessment/Plan - Assessment and Plan (Free Text) Assessment: 77 year old female with a PMHx of hypertension, hyperlipidemia, non-insulin dependent diabetes, and hypothyroidism, who was admitted for evaluation and treatment of severe respiratory distress and sepsis, complicated clinical course with post extubation flash pulmonary edema requiring re-intubation with subsequent NSTEMI Plan: Neurological Sedated on propofol and versed, continue sedation vacations and weaning trials Nonfocal at this time Cardiovascular Likely NSTEMI from stress of extubation, elevations of troponins up to 0.82 Cardiology following, recs appreciated, will discuss role of angiography Continue enoxoparin 60 q12 Continue metoprolol 25 BID Echo showed preserved LVEF 60%-65%, moderate mitral valve stenosis, and RVSP of 63 Continue diuresis with lasix 40 q12 Hemodynamically stable at this time Maintain MAP > 65 Pulmnologic Respiratory failure with pneumonia and sepsis, intubated PRVC 450/16/5/60% at this time On propofol gtt and versed gtt Continue sedation vacations and weaning trials Continue with duoneb edison and prn Continue with vancomycin, meropenem, and doxycycline day 3 ID following Maintain O2Sat >92% GI NPO at this time OG in place Nephro/Electrolytes Monitoring IxOs Following BUN and Cr closely Good urine output since starting lasix Continue negative fluid balance Heme Mild anemia without active bleeding, likely dilutional as improved after diuresis Did have D Dimer elevation but in setting of sepsis, however BLE US negative for DVTs HD stable ID Sepsis with pneumonia Continue with vancomycin, meropenem, and doxycycline day 3 ID consulted, recs appreciated Endo Diabetes, maintain euglycemia, cont RISS and accuchecks Hx hypothyroid but TSH low with normal T4, will restart levothyroxine pending clinical progression GI/DVT ppx: protonix/SCDs/therapeutic lovenox Patient seen and examined and case was discussed at length with attending physician. - Date & Time Date: 09/20/17 Time: 07:00 <Omer Ayon - Last Filed: 09/20/17 15:56> CCU Objective - Vital Signs / Intake & Output Intake and Output (Last 8hrs): Intake & Output 09/20/17 09/20/17 09/20/17 06:59 14:59 22:59 Intake Total 878 100 Output Total 2200 Balance -1322 100 Intake: IV 878 100 Right Forearm 778 Output: Urine 2200 Urethral ([place]) 2200 - Medications Active Medications: Active Medications Generic Name Dose Route Start Last Admin Trade Name Freq PRN Reason Stop Dose Admin Albuterol/Ipratropium 3 ml 09/17/17 23:30 09/20/17 11:28 Duoneb 3 Mg/0.5 Mg (3 Ml) Ud IH 3 ml [id number] EDISON Administration Albuterol/Ipratropium 3 ml 09/17/17 22:33 Duoneb 3 Mg/0.5 Mg (3 Ml) Ud IH Q2H PRN Shortness of Breath Aspirin 81 mg 09/19/17 10:00 09/20/17 10:59 Ecotrin PO 81 mg DAILY EDISON Administration Chlorhexidine Gluconate 15 ml 09/18/17 04:16 Peridex PO Q4 PRN ORAL CARE Enoxaparin Sodium 60 mg 09/18/17 22:00 09/20/17 11:03 Lovenox SC 60 mg Q12H EDISON Administration Protocol Furosemide 40 mg 09/19/17 22:00 09/20/17 11:03 Lasix IVP 40 mg Q12 EDISON Administration Meropenem 1 gm/ Dextrose 100 mls @ 100 mls/hr 09/18/17 14:00 09/20/17 05:05 IVPB 09/25/17 14:01 100 mls/hr Q8 EDISON Administration Protocol Vancomycin HCl 1 gm in 250 mls @ 167 mls/hr 09/18/17 10:00 09/20/17 11:01 Vancomycin 1gm IVPB 167 mls/hr Q12 EDISON Administration Protocol Doxycycline Hyclate 100 mg/ 100 mls @ 100 mls/hr 09/18/17 10:00 09/20/17 11: 02 Sodium Chloride IVPB 100 mls/hr Q12 EDISON Administration Protocol Propofol 1,000 mg in 100 mls @ 1.932 mls/hr 09/19/17 13:44 09/20/17 08:49 Diprivan IV 40 mcg/kg/min .Q24H PRN 15.458 mls/hr TITRATE PER MD ORDER Administration Protocol 5 MCG/KG/MIN Midazolam 100 mg/100ml in NS 100 mg in 100 mls @ 2 mls/hr 09/19/17 16:50 17:18 Midazolam 100 Mg/100ml In Ns IV 2 mg/hr .Q24H PRN 2 mls/hr Agitation Administration Protocol 2 MG/HR Insulin Human Regular 0 units 09/19/17 00:44 09/20/17 00:08 Humulin R Med SC Not Given Q6 EDISON Protocol Metoprolol Tartrate 25 mg 09/18/17 18:00 09/20/17 11:00 Lopressor PO 25 mg BID EDISON Administration Pantoprazole Sodium 40 mg 09/18/17 10:00 09/20/17 11:00 Protonix Inj IVP 40 mg DAILY EDISON Administration Polyethylene Glycol 17 gm 09/20/17 18:00 Miralax NG BID EDISON - Patient Studies Lab Studies: Microbiology Studies 09/18/17 12:30 Gram Stain - Final Sputum Sputum Culture - Final NORMAL ORAL LIZZETH 09/17/17 21:50 Blood Culture - Preliminary Blood-Venous NO GROWTH AFTER 48 HOURS 09/17/17 23:45 MRSA Culture (Admit) - Final Nose MRSA NOT DETECTED Lab Studies 09/20/17 09/20/17 09/20/17 Range/Units 06:50 06:50 06:15 WBC 11.1 H (4.5-11.0) 10^3/ul RBC 3.92 (3.5-6.1) 10^6/uL Hgb 10.9 L (12.0-16.0) g/dL Hct 33.5 L (36.0-48.0) % MCV 85.5 (80.0-105.0) fl MCH 27.8 (25.0-35.0) pg MCHC 32.5 (31.0-37.0) g/dl RDW 16.1 H (11.5-14.5) % Plt Count 251 (120.0-450.0) 10^3/uL MPV 12.5 H (7.0-11.0) fl Gran % 75.3 H (50.0-68.0) % Lymph % (Auto) 16.9 L (22.0-35.0) % [place] % (Auto) 7.4 H (1.0-6.0) % Eos % (Auto) 0.3 L (1.5-5.0) % Baso % (Auto) 0.1 (0.0-3.0) % Gran # 8.39 H (1.4-6.5) Lymph # 1.9 (1.2-3.4) [place] # 0.8 H (0.1-0.6) Eos # 0.0 (0.0-0.7) Baso # 0.01 (0.0-2.0) K/mm3 pCO2 36 (35-45) mm/Hg pO2 60.0 L (80-100) mm/Hg HCO3 28.7 H (21-28) mmol/L ABG pH 7.51 H (7.35-7.45) ABG Total CO2 29.8 H (22-28) mmol.L ABG O2 Saturation 97.2 (95-98) % ABG O2 Content 12.5 L (15-23) ML/dl ABG Base Excess 5.4 H (-2.0-3.0) mmol/L ABG Hemoglobin 9.5 L (11.7-17.4) g/dL ABG Carboxyhemoglobin 2.5 H (0.5-1.5) % POC ABG HHb (Measured) 2.7 (0-5) % ABG Methemoglobin 1.4 (0.0-3.0) % ABG O2 Capacity 12.9 L (16-24) mL/dl Hgb O2 Saturation 93.4 L (95.0-98.0) % FiO2 60.0 % Sodium 148 (132-148) mmol/L Potassium 2.9 L* D (3.6-5.0) mmol/L Chloride 108 H (98-107) mmol/L Carbon Dioxide 31 (21-33) mmol/L Anion Gap 12 (10-20) BUN 22 H (7-21) mg/dL Creatinine 0.9 (0.7-1.2) mg/dl Est GFR ( Amer) > 60 Est GFR (Non-Af Amer) > 60 Random Glucose 166 H (70-110) mg/dL Calcium 8.9 (8.4-10.5) mg/dL Total Bilirubin 0.7 (0.2-1.3) mg/dL AST 24 (14-36) U/L ALT 36 (7-56) U/L Alkaline Phosphatase 55 (38-126) U/L Lactate Dehydrogenase 522 (333-699) U/L Total Creatine Kinase 107 (35-230) U/L Troponin I 0.26 H* ng/mL Total Protein 6.3 (5.8-8.3) g/dL Albumin 3.4 (3.0-4.8) g/dL Globulin 2.8 gm/dL Albumin/Globulin Ratio 1.2 (1.1-1.8) 09/20/17 09/19/17 Range/Units 01:18 15:20 WBC (4.5-11.0) 10^3/ul RBC (3.5-6.1) 10^6/uL Hgb (12.0-16.0) g/dL Hct (36.0-48.0) % MCV (80.0-105.0) fl MCH (25.0-35.0) pg MCHC (31.0-37.0) g/dl RDW (11.5-14.5) % Plt Count (120.0-450.0) 10^3/uL MPV (7.0-11.0) fl Gran % (50.0-68.0) % Lymph % (Auto) (22.0-35.0) % [place] % (Auto) (1.0-6.0) % Eos % (Auto) (1.5-5.0) % Baso % (Auto) (0.0-3.0) % Gran # (1.4-6.5) Lymph # (1.2-3.4) [place] # (0.1-0.6) Eos # (0.0-0.7) Baso # (0.0-2.0) K/mm3 pCO2 (35-45) mm/Hg pO2 (80-100) mm/Hg HCO3 (21-28) mmol/L ABG pH (7.35-7.45) ABG Total CO2 (22-28) mmol.L ABG O2 Saturation (95-98) % ABG O2 Content (15-23) ML/dl ABG Base Excess (-2.0-3.0) mmol/L ABG Hemoglobin (11.7-17.4) g/dL ABG Carboxyhemoglobin (0.5-1.5) % POC ABG HHb (Measured) (0-5) % ABG Methemoglobin (0.0-3.0) % ABG O2 Capacity (16-24) mL/dl Hgb O2 Saturation (95.0-98.0) % FiO2 % Sodium (132-148) mmol/L Potassium (3.6-5.0) mmol/L Chloride (98-107) mmol/L Carbon Dioxide (21-33) mmol/L Anion Gap (10-20) BUN (7-21) mg/dL Creatinine (0.7-1.2) mg/dl Est GFR ( Amer) Est GFR (Non-Af Amer) Random Glucose (70-110) mg/dL Calcium (8.4-10.5) mg/dL Total Bilirubin (0.2-1.3) mg/dL AST (14-36) U/L ALT (7-56) U/L Alkaline Phosphatase (38-126) U/L Lactate Dehydrogenase (333-699) U/L Total Creatine Kinase (35-230) U/L Troponin I 0.32 H* D 0.82 H* D ng/mL Total Protein (5.8-8.3) g/dL Albumin (3.0-4.8) g/dL Globulin gm/dL Albumin/Globulin Ratio (1.1-1.8) Laboratory Results - last 24 hr 09/19/17 09/20/17 09/20/17 15:20 01:18 06:15 WBC RBC Hgb Hct MCV MCH MCHC RDW Plt Count MPV Gran % Lymph % (Auto) [place] % (Auto) Eos % (Auto) Baso % (Auto) Gran # Lymph # [place] # Eos # Baso # pCO2 36 pO2 60.0 L HCO3 28.7 H ABG pH 7.51 H ABG Total CO2 29.8 H ABG O2 Saturation 97.2 ABG O2 Content 12.5 L ABG Base Excess 5.4 H ABG Hemoglobin 9.5 L ABG Carboxyhemoglobin 2.5 H POC ABG HHb (Measured) 2.7 ABG Methemoglobin 1.4 ABG O2 Capacity 12.9 L Hgb O2 Saturation 93.4 L FiO2 60.0 Sodium Potassium Chloride Carbon Dioxide Anion Gap BUN Creatinine Est GFR ( Amer) Est GFR (Non-Af Amer) Random Glucose Calcium Total Bilirubin AST ALT Alkaline Phosphatase Lactate Dehydrogenase Total Creatine Kinase Troponin I 0.82 H* D 0.32 H* D Total Protein Albumin Globulin Albumin/Globulin Ratio 09/20/17 09/20/17 06:50 06:50 WBC 11.1 H RBC 3.92 Hgb 10.9 L Hct 33.5 L MCV 85.5 MCH 27.8 MCHC 32.5 RDW 16.1 H Plt Count 251 MPV 12.5 H Gran % 75.3 H Lymph % (Auto) 16.9 L [place] % (Auto) 7.4 H Eos % (Auto) 0.3 L Baso % (Auto) 0.1 Gran # 8.39 H Lymph # 1.9 [place] # 0.8 H Eos # 0.0 Baso # 0.01 pCO2 pO2 HCO3 ABG pH ABG Total CO2 ABG O2 Saturation ABG O2 Content ABG Base Excess ABG Hemoglobin ABG Carboxyhemoglobin POC ABG HHb (Measured) ABG Methemoglobin ABG O2 Capacity Hgb O2 Saturation FiO2 Sodium 148 Potassium 2.9 L* D Chloride 108 H Carbon Dioxide 31 Anion Gap 12 BUN 22 H Creatinine 0.9 Est GFR ( Amer) > 60 Est GFR (Non-Af Amer) > 60 Random Glucose 166 H Calcium 8.9 Total Bilirubin 0.7 AST 24 ALT 36 Alkaline Phosphatase 55 Lactate Dehydrogenase 522 Total Creatine Kinase 107 Troponin I 0.26 H* Total Protein 6.3 Albumin 3.4 Globulin 2.8 Albumin/Globulin Ratio 1.2 Attending/Attestation - Attestation I have personally seen and examined this patient.: Yes I have fully participated in the care of the patient.: Yes I have reviewed all pertinent clinical information: Yes Notes (Text): 09/20/17 15:52 77 yo female with copd, CAP, intubated for respiratory failure. Extubated yesterday, however had to be reintubated due to flash pulmonary edema, troponin leak. After immediate re-intubation and diuresis, patient respiratory bryant improved. Possibility of CAD limiting cardiac reserve after extubation can not be ruled out and more detailed cardiac exam with or without coronary angio/PCI will be considered as disussed with Dr. Baumann--cardiac service. Meanwhile will proceed with bb, statins, aspirin, TAC, bronchodilators, abx, gi prophyalxis ccm time 40 min
--- NOTE | 2017-09-20 10:36 | CP.PCM.PN ---
Subjective - Date & Time of Evaluation Date of Evaluation: 09/20/17 Time of Evaluation: 10:05 - Subjective Subjective: Noted events yesterday -within 2 hours that I saw the patient, she developed respiratory distress and had to be re-intubated. She was given Lasix and diuresed a good amount of fluid. She continues to be on the ventilator this morning, no fevers overnight. GI is seeing patient currently for fecal impaction and is manually extracting stool. Objective - Vital Signs/Intake and Output Vital Signs (last 24 hours): Temp Pulse Resp BP Pulse Ox 99.0 F 70 17 142/54 L 100 09/20/17 04:00 09/20/17 04:38 09/19/17 22:19 09/20/17 04:38 09/20/17 04:38 Intake and Output: 09/20/17 09/20/17 06:59 18:59 Intake Total 978 100 Output Total 2200 Balance -1222 100 - Medications Medications: Current Medications Albuterol/Ipratropium (Duoneb 3 Mg/0.5 Mg (3 Ml) Ud) 3 ml IH [id number] [facility] Last Admin: 09/20/17 07:59 Dose: 3 ml Albuterol/Ipratropium (Duoneb 3 Mg/0.5 Mg (3 Ml) Ud) 3 ml IH Q2H PRN PRN Reason: Shortness of Breath Aspirin (Ecotrin) 81 mg PO DAILY [facility] Last Admin: 09/19/17 16:18 Dose: 81 mg Chlorhexidine Gluconate (Peridex) 15 ml PO Q4 PRN PRN Reason: ORAL CARE Enoxaparin Sodium (Lovenox) 60 mg SC Q12H SUSAN PRN Reason: Protocol Last Admin: 09/19/17 22:14 Dose: 60 mg Furosemide (Lasix) 40 mg IVP Q12 [facility] Last Admin: 09/19/17 22:07 Dose: 40 mg Meropenem 1 gm/ Dextrose 100 mls @ 100 mls/hr IVPB Q8 SUSAN PRN Reason: Protocol Stop: 09/25/17 14:01 Last Admin: 09/20/17 05:05 Dose: 100 mls/hr Vancomycin HCl (Vancomycin 1gm) 1 gm in 250 mls @ 167 mls/hr IVPB Q12 SUSAN PRN Reason: Protocol Last Admin: 09/19/17 21:49 Dose: 167 mls/hr Doxycycline Hyclate 100 mg/ (Sodium Chloride) 100 mls @ 100 mls/hr IVPB Q12 SUSAN PRN Reason: Protocol Last Admin: 09/19/17 21:47 Dose: 100 mls/hr Propofol (Diprivan) 1,000 mg in 100 mls @ 1.932 mls/hr IV .Q24H PRN; Protocol; 5 MCG/KG/MIN PRN Reason: TITRATE PER MD ORDER Last Admin: 09/20/17 08:49 Dose: 40 mcg/kg/min, 15.458 mls/hr Midazolam 100 mg/100ml in NS (Midazolam 100 Mg/100ml In Ns) 100 mg in 100 mls @ 2 mls/hr IV .Q24H PRN; Protocol; 2 MG/HR PRN Reason: Agitation Last Admin: 09/19/17 17:18 Dose: 2 mg/hr, 2 mls/hr Potassium Chloride (Potassium Chloride 10 Meq/100 Ml) 10 meq in 100 mls @ 100 mls/hr IVPB Q2H SUSAN Stop: 09/20/17 11:14 Last Admin: 09/20/17 08:55 Dose: 100 mls/hr Insulin Human Regular (Humulin R Med) 0 units SC Q6 SUSAN PRN Reason: Protocol Last Admin: 09/20/17 00:08 Dose: Not Given Metoprolol Tartrate (Lopressor) 25 mg PO BID [facility] Last Admin: 09/19/17 16:19 Dose: 25 mg Pantoprazole Sodium (Protonix Inj) 40 mg IVP DAILY [facility] Last Admin: 09/19/17 09:47 Dose: 40 mg Potassium Chloride (Potassium Chloride Oral Soln) 40 meq PO ONCE ONE Stop: 09/20/17 13:31 - Labs Labs: 09/20/17 06:50 09/20/17 06:50 PT 12.6 SECONDS (9.4-12.5) H 09/18/17 06:30 INR 1.14 (0.93-1.08) H 09/18/17 06:30 APTT 28.1 Seconds (25.1-36.5) 09/18/17 06:30 - Constitutional Appears: Other (intubated and sedated) - Head Exam Head Exam: NORMAL INSPECTION - ENT Exam Additional comments: ET tube in place - Neck Exam Neck Exam: absent: Meningismus - Respiratory Exam Respiratory Exam: Decreased Breath Sounds - Cardiovascular Exam Cardiovascular Exam: +S1, +S2 - GI/Abdominal Exam GI & Abdominal Exam: Soft. absent: Tenderness Assessment and Plan - Assessment and Plan (Free Text) Plan: Assessment Consider severe sepsis with hypoxic respiratory failure, ventilator-dependent due to bilateral lower lobe pneumonia, severe community-acquired pneumonia as well as possible congestive heart failure HTN dyslipidemia DM hypothyroidism Plan continue Vancomycin, Merrem and Doxycycline day 3 pending final sputum cx, blood cx; PCT is low; urine Legionella Ag and Influenza tests are negative; WBC count was elevated on admission but has decreased will continue to monitor clinically
[2017-09-20] MEDS: Vancomycin 1gm in NS 250ml 1 GM/250 ML BAG IVPB SCH ×2 (11:01→21:45)
[2017-09-20] MEDS: Enoxaparin 60 mg Syringe SC SCH ×2 (11:03→21:44)
[2017-09-20] MEDS ORDERED: Mineral Oil Enema 135 ml RC ONE (11:20)
[2017-09-20] MEDS ORDERED: Potassium Chloride 40 mEq/30 ml LIQ UD PO SCH (12:00)
[2017-09-20] MEDS ORDERED: Potassium Chloride 40 mEq/30 ml LIQ UD PO ONE (13:30)
--- NOTE | 2017-09-20 13:40 | CP.PCM.CON ---
<Jenny Cantu - Last Filed: 09/20/17 13:40> History of Present Illness - History of Present Illness History of Present Illness: Seen and examined at bedside this morning, chart was reviewed. Request for GI consult is for sepsis/constipation. HPI: This is a 77-year-old female with a past medical hyperlipidemia, hypertension, and IDDM and hypothyroidism was brought to the ER for severe respiratory distress. Patient was intubated in the ER. Currently the patient is intubated and information was obtained from patient's son and at the bedside. Also daughter Emily via phone. As well as medical chart. The patient was reported to have recently returned from [place] with her daughter on Monday and was in her usual state of health when she returned but had complaints of constipation. But when she was with her granddaughter she had c/o of SOB and EMS was called, at the time the patient was coming out of the bathroom. Yesterday the patient was extubated and went into pulmonary edema and reintubated. Son at bedside endorsees that mother has constipation and h/o vasovagel. Nursing staff report "pebble" like stool,no bleeding. at bedside reports that patient at times takes OTC laxative at times, she also get acid reflux at times and may take OTC antacid. No zachary loss, has good appetite. Last colonoscopy was with Dr. Garcia 3 years ago, was not completed, recommended virtual colonoscopy, but patient did not go as per Emily, daughter. Never had EGD. Patient had ct scan chest, show moderate pleural effusion with increase interval since last scan 2 days ago, see full report in [facility]. PMH: HTN, HLD,IDDM, Hypothyroidism, diverticulosis, constipation PSH: family denies sx hx:had colon 3 years ago FH: noncontributory Allergies: Iodinated contrast: oral and IV MEDs: reviewed as per MAR Social history: No history of toba ROS: Unable to review, patient intubated/sedated, see HPI Past Patient History - Infectious Disease Hx of Infectious Diseases: None - Tetanus Immunizations Tetanus Immunization: Unknown - Past Social History Smoking Status: Unknown If Ever Smoked - CARDIAC Hx Hypertension: Yes - PULMONARY Other/Comment: smoker - NEUROLOGICAL Hx Dizziness: Yes (vertigo) - HEENT Hx HEENT Problems: No Other/Comment: does not recall ringing in ears and head - RENAL Hx Chronic Kidney Disease: No - ENDOCRINE/METABOLIC Hx Diabetes Mellitus Type 2: Yes Hx Hypothyroidism: Yes - HEMATOLOGICAL/ONCOLOGICAL Hx Blood Disorders: No - INTEGUMENTARY Hx Dermatological Problems: No - MUSCULOSKELETAL/RHEUMATOLOGICAL Hx Falls: No - GASTROINTESTINAL Hx Gastrointestinal Disorders: Yes (dx hiatal hernia 25 yrs ago) Hx Gastroesophageal Reflux: Yes - GENITOURINARY/GYNECOLOGICAL Hx Genitourinary Disorders: No - PSYCHIATRIC Hx Psychophysiologic Disorder: No Hx Depression: Yes Hx Emotional Abuse: No Hx Physical Abuse: No - SURGICAL HISTORY Hx Appendectomy: Yes Hx Hysterectomy: Yes (partial hystrectomy 1980) - ANESTHESIA Hx Anesthesia Reactions: Yes Hx Malignant Hyperthermia: No Meds Allergies/Adverse Reactions: Allergies Allergy/AdvReac Type Severity Reaction Status Date / Time Iodinated Contrast- Oral and Allergy ITCHING Verified 04/22/17 14:18 IV Dye - Medications Medications: Current Medications Albuterol/Ipratropium (Duoneb 3 Mg/0.5 Mg (3 Ml) Ud) 3 ml IH [id number] [facility] Last Admin: 09/20/17 07:59 Dose: 3 ml Albuterol/Ipratropium (Duoneb 3 Mg/0.5 Mg (3 Ml) Ud) 3 ml IH Q2H PRN PRN Reason: Shortness of Breath Aspirin (Ecotrin) 81 mg PO DAILY [facility] Last Admin: 09/20/17 10:59 Dose: 81 mg Chlorhexidine Gluconate (Peridex) 15 ml PO Q4 PRN PRN Reason: ORAL CARE Enoxaparin Sodium (Lovenox) 60 mg SC Q12H SUSAN PRN Reason: Protocol Last Admin: 09/20/17 11:03 Dose: 60 mg Furosemide (Lasix) 40 mg IVP Q12 [facility] Last Admin: 09/20/17 11:03 Dose: 40 mg Meropenem 1 gm/ Dextrose 100 mls @ 100 mls/hr IVPB Q8 SUSAN PRN Reason: Protocol Stop: 09/25/17 14:01 Last Admin: 09/20/17 05:05 Dose: 100 mls/hr Vancomycin HCl (Vancomycin 1gm) 1 gm in 250 mls @ 167 mls/hr IVPB Q12 SUSAN PRN Reason: Protocol Last Admin: 09/20/17 11:01 Dose: 167 mls/hr Doxycycline Hyclate 100 mg/ (Sodium Chloride) 100 mls @ 100 mls/hr IVPB Q12 SUSAN PRN Reason: Protocol Last Admin: 09/20/17 11:02 Dose: 100 mls/hr Propofol (Diprivan) 1,000 mg in 100 mls @ 1.932 mls/hr IV .Q24H PRN; Protocol; 5 MCG/KG/MIN PRN Reason: TITRATE PER MD ORDER Last Admin: 09/20/17 08:49 Dose: 40 mcg/kg/min, 15.458 mls/hr Midazolam 100 mg/100ml in NS (Midazolam 100 Mg/100ml In Ns) 100 mg in 100 mls @ 2 mls/hr IV .Q24H PRN; Protocol; 2 MG/HR PRN Reason: Agitation Last Admin: 09/19/17 17:18 Dose: 2 mg/hr, 2 mls/hr Insulin Human Regular (Humulin R Med) 0 units SC Q6 SUSAN PRN Reason: Protocol Last Admin: 09/20/17 00:08 Dose: Not Given Metoprolol Tartrate (Lopressor) 25 mg PO BID [facility] Last Admin: 09/20/17 11:00 Dose: 25 mg Mineral Oil (Fleet Mineral Oil Enema) 135 ml RC ONCE ONE Stop: 09/20/17 11:21 Pantoprazole Sodium (Protonix Inj) 40 mg IVP DAILY [facility] Last Admin: 09/20/17 11:00 Dose: 40 mg Potassium Chloride (Potassium Chloride Oral Soln) 40 meq PO ONCE ONE Stop: 09/20/17 13:31 Physical Exam - Constitutional Appears: No Acute Distress (intubated/sedated) - Head Exam Head Exam: NORMOCEPHALIC - Eye Exam Eye Exam: absent: Scleral icterus - ENT Exam ENT Exam: Mucous Membranes Moist - Neck Exam Neck exam: Positive for: Normal Inspection - Respiratory Exam Respiratory Exam: Decreased Breath Sounds (intubated), NORMAL BREATHING PATTERN. absent: Respiratory Distress - Cardiovascular Exam Cardiovascular Exam: +S1, +S2 - GI/Abdominal Exam GI & Abdominal Exam: Normal Bowel Sounds, Soft. absent: Guarding, Organomegaly , Rebound, Tenderness - Rectal Exam Rectal Exam: Hemorrhoids Additional comments: disimpacted brown stool - Extremities Exam Extremities exam: Positive for: pedal pulses present (scd on). Negative for: pedal edema - Neurological Exam Neurological exam: Altered (intubated/sedated) - Skin Skin Exam: Dry, Warm Results - Vital Signs Recent Vital Signs: Last Vital Signs Temp 99.0 F 09/20/17 04:00 Pulse 72 09/20/17 11:00 Resp 17 09/19/17 22:19 BP 141/50 L 09/20/17 11:03 Pulse Ox 100 09/20/17 04:38 - Labs Result Diagrams: 09/20/17 06:50 09/20/17 06:50 Labs: Laboratory Results - last 24 hr 09/19/17 09/19/17 09/19/17 06:00 10:55 14:29 WBC RBC Hgb Hct MCV MCH MCHC RDW Plt Count MPV Gran % Lymph % (Auto) [place] % (Auto) Eos % (Auto) Baso % (Auto) Gran # Lymph # [place] # Eos # Baso # pCO2 pO2 HCO3 ABG pH ABG Total CO2 ABG O2 Saturation ABG O2 Content ABG Base Excess ABG Hemoglobin ABG Carboxyhemoglobin POC ABG HHb (Measured) ABG Methemoglobin ABG O2 Capacity Hgb O2 Saturation FiO2 Sodium Potassium Chloride Carbon Dioxide Anion Gap BUN Creatinine Est GFR ( Amer) Est GFR (Non-Af Amer) POC Glucose (mg/dL) 173 H 236 H Random Glucose Hemoglobin A1c 7.2 H Calcium Total Bilirubin AST ALT Alkaline Phosphatase Lactate Dehydrogenase Total Creatine Kinase Troponin I Total Protein Albumin Globulin Albumin/Globulin Ratio 09/19/17 09/20/17 09/20/17 15:20 01:18 06:15 WBC RBC Hgb Hct MCV MCH MCHC RDW Plt Count MPV Gran % Lymph % (Auto) [place] % (Auto) Eos % (Auto) Baso % (Auto) Gran # Lymph # [place] # Eos # Baso # pCO2 36 pO2 60.0 L HCO3 28.7 H ABG pH 7.51 H ABG Total CO2 29.8 H ABG O2 Saturation 97.2 ABG O2 Content 12.5 L ABG Base Excess 5.4 H ABG Hemoglobin 9.5 L ABG Carboxyhemoglobin 2.5 H POC ABG HHb (Measured) 2.7 ABG Methemoglobin 1.4 ABG O2 Capacity 12.9 L Hgb O2 Saturation 93.4 L FiO2 60.0 Sodium Potassium Chloride Carbon Dioxide Anion Gap BUN Creatinine Est GFR ( Amer) Est GFR (Non-Af Amer) POC Glucose (mg/dL) Random Glucose Hemoglobin A1c Calcium Total Bilirubin AST ALT Alkaline Phosphatase Lactate Dehydrogenase Total Creatine Kinase Troponin I 0.82 H* D 0.32 H* D Total Protein Albumin Globulin Albumin/Globulin Ratio 09/20/17 09/20/17 06:50 06:50 WBC 11.1 H RBC 3.92 Hgb 10.9 L Hct 33.5 L MCV 85.5 MCH 27.8 MCHC 32.5 RDW 16.1 H Plt Count 251 MPV 12.5 H Gran % 75.3 H Lymph % (Auto) 16.9 L [place] % (Auto) 7.4 H Eos % (Auto) 0.3 L Baso % (Auto) 0.1 Gran # 8.39 H Lymph # 1.9 [place] # 0.8 H Eos # 0.0 Baso # 0.01 pCO2 pO2 HCO3 ABG pH ABG Total CO2 ABG O2 Saturation ABG O2 Content ABG Base Excess ABG Hemoglobin ABG Carboxyhemoglobin POC ABG HHb (Measured) ABG Methemoglobin ABG O2 Capacity Hgb O2 Saturation FiO2 Sodium 148 Potassium 2.9 L* D Chloride 108 H Carbon Dioxide 31 Anion Gap 12 BUN 22 H Creatinine 0.9 Est GFR ( Amer) > 60 Est GFR (Non-Af Amer) > 60 POC Glucose (mg/dL) Random Glucose 166 H Hemoglobin A1c Calcium 8.9 Total Bilirubin 0.7 AST 24 ALT 36 Alkaline Phosphatase 55 Lactate Dehydrogenase 522 Total Creatine Kinase 107 Troponin I 0.26 H* Total Protein 6.3 Albumin 3.4 Globulin 2.8 Albumin/Globulin Ratio 1.2 Assessment & Plan - Assessment and Plan (Free Text) Assessment: Assessment: Sepsis Respiratory failure Bilateral lower lobe Constipation, impacted stool status post disimpaction Diverticulosis Hypokalemia Elevated troponin Plan: Give a dose of mineral oil enema, followed by tap water enema, see orders Start MiraLAX via NG tube BID on IV antibiotics as per ID may benefit from ct scan of abdomen and pelvis when patient is more optimal DVT prophylaxis continue Protonix as per ICU team Spoke to the family at the bedside. Thank you for this consul and for allowing to participate in your patient care, fusther recommendation based upon clinical course. Seen and discussed w/ Dr. Sarabia. <Dmitriy Sarabia V - Last Filed: 09/20/17 21:12> Meds - Medications Medications: Current Medications Albuterol/Ipratropium (Duoneb 3 Mg/0.5 Mg (3 Ml) Ud) 3 ml IH [id number] [facility] Last Admin: 09/20/17 19:35 Dose: 3 ml Albuterol/Ipratropium (Duoneb 3 Mg/0.5 Mg (3 Ml) Ud) 3 ml IH Q2H PRN PRN Reason: Shortness of Breath Aspirin (Ecotrin) 81 mg PO DAILY [facility] Last Admin: 09/20/17 10:59 Dose: 81 mg Chlorhexidine Gluconate (Peridex) 15 ml PO Q4 PRN PRN Reason: ORAL CARE Enoxaparin Sodium (Lovenox) 60 mg SC Q12H SUSAN PRN Reason: Protocol Last Admin: 09/20/17 11:03 Dose: 60 mg Furosemide (Lasix) 40 mg IVP Q12 [facility] Last Admin: 09/20/17 11:03 Dose: 40 mg Meropenem 1 gm/ Dextrose 100 mls @ 100 mls/hr IVPB Q8 [facility] PRN Reason: Protocol Stop: 09/25/17 14:01 Last Admin: 09/20/17 16:41 Dose: 100 mls/hr Vancomycin HCl (Vancomycin 1gm) 1 gm in 250 mls @ 167 mls/hr IVPB Q12 SUSAN PRN Reason: Protocol Last Admin: 09/20/17 11:01 Dose: 167 mls/hr Doxycycline Hyclate 100 mg/ (Sodium Chloride) 100 mls @ 100 mls/hr IVPB Q12 [facility] PRN Reason: Protocol Last Admin: 09/20/17 11:02 Dose: 100 mls/hr Propofol (Diprivan) 1,000 mg in 100 mls @ 1.932 mls/hr IV .Q24H PRN; Protocol; 5 MCG/KG/MIN PRN Reason: TITRATE PER MD ORDER Last Admin: 09/20/17 08:49 Dose: 40 mcg/kg/min, 15.458 mls/hr Midazolam 100 mg/100ml in NS (Midazolam 100 Mg/100ml In Ns) 100 mg in 100 mls @ 2 mls/hr IV .Q24H PRN; Protocol; 2 MG/HR PRN Reason: Agitation Last Admin: 09/19/17 17:18 Dose: 2 mg/hr, 2 mls/hr Insulin Human Regular (Humulin R Med) 0 units SC Q6 [facility] PRN Reason: Protocol Last Admin: 09/20/17 12:00 Dose: Not Given Metoprolol Tartrate (Lopressor) 25 mg PO BID [facility] Last Admin: 09/20/17 17:10 Dose: 25 mg Pantoprazole Sodium (Protonix Inj) 40 mg IVP DAILY [facility] Last Admin: 09/20/17 11:00 Dose: 40 mg Polyethylene Glycol (Miralax) 17 gm NG BID [facility] Last Admin: 09/20/17 17:10 Dose: 17 gm Results - Vital Signs Recent Vital Signs: Last Vital Signs Temp 98.7 F 09/20/17 16:00 Pulse 71 09/20/17 20:35 Resp 17 09/19/17 22:19 BP 144/59 L 09/20/17 20:35 Pulse Ox 100 09/20/17 20:35 - Labs Result Diagrams: 09/20/17 06:50 09/20/17 06:50 Labs: Laboratory Results - last 24 hr 09/19/17 09/20/17 09/20/17 17:58 00:05 01:18 WBC RBC Hgb Hct MCV MCH MCHC RDW Plt Count MPV Gran % Lymph % (Auto) [place] % (Auto) Eos % (Auto) Baso % (Auto) Gran # Lymph # [place] # Eos # Baso # pCO2 pO2 HCO3 ABG pH ABG Total CO2 ABG O2 Saturation ABG O2 Content ABG Base Excess ABG Hemoglobin ABG Carboxyhemoglobin POC ABG HHb (Measured) ABG Methemoglobin ABG O2 Capacity Hgb O2 Saturation FiO2 Sodium Potassium Chloride Carbon Dioxide Anion Gap BUN Creatinine Est GFR ( Amer) Est GFR (Non-Af Amer) POC Glucose (mg/dL) 223 H 242 H Random Glucose Calcium Total Bilirubin AST ALT Alkaline Phosphatase Lactate Dehydrogenase Total Creatine Kinase Troponin I 0.32 H* D Total Protein Albumin Globulin Albumin/Globulin Ratio 09/20/17 09/20/17 09/20/17 06:07 06:15 06:50 WBC RBC Hgb Hct MCV MCH MCHC RDW Plt Count MPV Gran % Lymph % (Auto) [place] % (Auto) Eos % (Auto) Baso % (Auto) Gran # Lymph # [place] # Eos # Baso # pCO2 36 pO2 60.0 L HCO3 28.7 H ABG pH 7.51 H ABG Total CO2 29.8 H ABG O2 Saturation 97.2 ABG O2 Content 12.5 L ABG Base Excess 5.4 H ABG Hemoglobin 9.5 L ABG Carboxyhemoglobin 2.5 H POC ABG HHb (Measured) 2.7 ABG Methemoglobin 1.4 ABG O2 Capacity 12.9 L Hgb O2 Saturation 93.4 L FiO2 60.0 Sodium 148 Potassium 2.9 L* D Chloride 108 H Carbon Dioxide 31 Anion Gap 12 BUN 22 H Creatinine 0.9 Est GFR ( Amer) > 60 Est GFR (Non-Af Amer) > 60 POC Glucose (mg/dL) 169 H Random Glucose 166 H Calcium 8.9 Total Bilirubin 0.7 AST 24 ALT 36 Alkaline Phosphatase 55 Lactate Dehydrogenase 522 Total Creatine Kinase 107 Troponin I 0.26 H* Total Protein 6.3 Albumin 3.4 Globulin 2.8 Albumin/Globulin Ratio 1.2 09/20/17 09/20/17 06:50 11:55 WBC 11.1 H RBC 3.92 Hgb 10.9 L Hct 33.5 L MCV 85.5 MCH 27.8 MCHC 32.5 RDW 16.1 H Plt Count 251 MPV 12.5 H Gran % 75.3 H Lymph % (Auto) 16.9 L [place] % (Auto) 7.4 H Eos % (Auto) 0.3 L Baso % (Auto) 0.1 Gran # 8.39 H Lymph # 1.9 [place] # 0.8 H Eos # 0.0 Baso # 0.01 pCO2 pO2 HCO3 ABG pH ABG Total CO2 ABG O2 Saturation ABG O2 Content ABG Base Excess ABG Hemoglobin ABG Carboxyhemoglobin POC ABG HHb (Measured) ABG Methemoglobin ABG O2 Capacity Hgb O2 Saturation FiO2 Sodium Potassium Chloride Carbon Dioxide Anion Gap BUN Creatinine Est GFR ( Amer) Est GFR (Non-Af Amer) POC Glucose (mg/dL) 160 H Random Glucose Calcium Total Bilirubin AST ALT Alkaline Phosphatase Lactate Dehydrogenase Total Creatine Kinase Troponin I Total Protein Albumin Globulin Albumin/Globulin Ratio Attending/Attestation - Attestation I have personally seen and examined this patient.: Yes I have fully participated in the care of the patient.: Yes I have reviewed all pertinent clinical information: Yes Notes (Text): This is an addendum to GI consultation report dictated by Jenny Cantu APN.The patient was seen and examined earlier. Medical records, lab studies, imagings were reviewed. Last 24 hours events reviewed. Agreed with the above treatment plan as outlined in Jenny Cantu APN's notes the with the addition of the following patient on vent. Patient's son was at bedside on examination abdomen is soft without tenderness. Patient did have manual disimpaction of stool done earlier by Jenny Cantu APN.. Patient also received enemas . Now on MiraLAX via NG-tube. Plan is to consider CT when optimal. Will discuss with agricultural research technician Discussed with the patient's son who was at bedside at length 09/20/17 21:07
--- NOTE | 2017-09-20 13:53 | PN ---
DATE: 09/20/2017 SUBJECTIVE: The patient has no complaints. The patient is intubated. The events from yesterday were noted. The patient had to be reintubated because of flash pulmonary edema. PHYSICAL EXAMINATION: VITAL SIGNS: Temperature is 99, pulse of 70, blood pressure is 142/54, respirations 17. GENERAL: The patient is lying in bed, flat, comfortable. HEENT: No oral lesion. Anicteric sclerae. Moist mucosa. NECK: No JVD, adenopathy, or thyromegaly. CARDIOVASCULAR: S1 and S2, regular. No murmurs, rubs, or gallops. LUNGS: Clear to auscultation bilaterally. No wheeze, rales, or rhonchi. ABDOMEN: Bowel sounds are positive, soft, nontender and nondistended. EXTREMITIES: No cyanosis, clubbing or edema. LABORATORY DATA: White count of 11.1, hemoglobin 10.9, creatinine is 0.9. Chest x-ray shows curvilinear density overlying the distal trachea, right main bronchus. ET and NG tube is unchanged. The CT of the head done. There is an interval increase in the bilateral pleural effusions. ASSESSMENT: 1. Sepsis secondary to community-acquired pneumonia. 2. Respiratory failure on ventilator. 3. Non-ST elevation myocardial infarction. 4. Diabetes type 2. 5. Hypertension. 6. Dyslipidemia. 7. Hypomagnesemia, improved. 8. Bilateral pleural effusion, 13-mm density within the left atrium. 9. Hypokalemia. PLAN: The patient had to be reintubated yesterday. She has troponin that was elevated. The patient's potassium is low, this will need to be replaced. The patient has influenza and Legionella that is negative. The patient is currently on doxycycline for antibiotics. She is on aspirin for her elevated troponin. She is also on metoprolol. She is on anticoagulation with Lovenox. The patient may need a cardiac cath. I will defer the decision to Cardiology with Dr. Baumann. We will replace the patient's potassium. I did speak to the patient's son at the bedside. He is concerned about abdominal issues. Now, we will get GI evaluation per request of the family to evaluate abdominal issues causing her medical condition to worsen. Overall prognosis is guarded. She has been started on nutrition. Dominic Gary MD [facility] # [id number]
--- NOTE | 2017-09-20 15:36 | RAD ---
HISTORY: Compare to see improvement of Pneumonia and CHF. COMPARISON: 09/19/2017 FINDINGS: LUNGS: The chest x-ray 09/19/2017 previously referenced curvilinear density is within the prior right mainstem bronchus is not reproduced on this exam. It was also not reproduced on the chest without contrast study from 09/19/2017 either. Bibasilar vague opacities slightly more dense and patchy the left lung base in the right base noted. Findings have been referenced on the prior CT chest exam. And prior small bilateral pleural effusions were referenced. Some layering right pleural effusion on the right is possible. Patchy left peribronchial thickening/ atelectatic changes/minimal compressive atelectatic changes ROP consistent with this current appearance based on the prior chest x-ray no definite interval changes perceived. Allowing for summation of soft tissues in slightly different technique between the 2 exams. PLEURA: No pneumothorax apparent. Probable small bilateral pleural effusions -on the right appears layering. Study is noted to be marked is portable semi-erect still layering is probable. CARDIOVASCULAR: Cardiomegaly and mitral annular coarse calcification noted OSSEOUS STRUCTURES: No significant abnormalities. VISUALIZED UPPER ABDOMEN: Normal. OTHER FINDINGS: Endotracheal tube tip approximately 3 cm from the sadie. NG tube tip distal to GE junction tip near gastric fundus. IMPRESSION: Allowing for differences in technique the bibasilar small pleural effusions are bleed is similar that on the right is likely layering and less suggested in a typical blunted right costophrenic angle appearance. The basilar infiltrate is asymmetrically greater at the left lung base with peribronchial thickening and subsegmental atelectatic changes here suggested. Findings are similar to the CT chest scanogram from 09/19/2017 Endotracheal tube and NG tube positions satisfactory and similar.
[2017-09-20] MEDS: POLYETHYLENE GLYCOL 3350 17 GM/Dose PACKET NG SCH (17:10)
--- NOTE | 2017-09-20 17:25 | PN ---
DATE: 09/20/2017 LOCATION: The patient is in room CCU 129, bed 7. REASON FOR CONSULTATION: Respiratory failure, status post intubation, episode of pulmonary edema, [id number] myocardial infarction. SUBJECTIVE: The patient is on respirator. PHYSICAL EXAMINATION: VITAL SIGNS: Blood pressure 141/50, the patient is on respirator, pulse 72 and temperature 99. HEENT: Head is normocephalic. Eyes; pupils normal. Conjunctivae slightly pale. NECK: JVP low. Carotids equal. THORAX: AP diameter normal. LUNGS: No significant rales. CARDIOVASCULAR: S1 and S2. ABDOMEN: Soft. No tenderness. No organomegaly. EXTREMITIES: No clubbing. No cyanosis. LABORATORY DATA: WBC 11.1, hemoglobin 10.9, hematocrit 33.5 and platelets 251. Sodium 148, potassium 2.9, BUN 22, creatinine 0.9, AST and ALT normal. Troponin 0.82, then was 0.32, then 0.26. Before that, first troponin was 0.17. Total protein and albumin normal. DIAGNOSES: Respiratory failure, bilateral pneumonia, episode of pulmonary edema, troponin slightly elevated suggestive of [id number] myocardial infarction. Echocardiogram showed ejection fraction of 55%, mild to moderate mitral regurgitation, also suggestion of moderate mitral stenosis, aortic sclerosis with mild aortic stenosis, mild to moderate tricuspid regurgitation with right ventricular systolic pressure of 62 suggestive of moderate pulmonary hypertension, right ventricle slightly enlarged and right ventricular systolic pressure slightly reduced. Hypertension, diabetes type 2, hyperlipidemia, hypothyroidism, sepsis, respiratory failure and hypokalemia. PLAN: The patient is getting potassium therapy. The patient is also on doxycycline 100 mg IV q. 12 hours, aspirin 81 daily, Lasix 40 mg IV b.i.d., metoprolol 25 b.i.d., Lovenox 60 mg subcutaneous q. 12 hours, meropenem 1 g IV q. 8 hours and vancomycin 1 g IV q. 12 hours. The patient received one potassium 40 mEq p.o. and we will give also 20 mEq IV of potassium. I will repeat labs in the morning and will repeat today also chest x-ray. I had a long discussion with the and the son. I explained the patient's condition. When the patient is stabilized and extubated, then we will arrange cardiac catheterization. Edwin Edwards MD
[2017-09-20] MEDS ORDERED: POLYETHYLENE GLYCOL 3350 17 GM/Dose PACKET NG ONE (18:00)
[2017-09-21] MEDS: Propofol 10 mg/ml 1,000 MG/100 ML VIAL IV PRN ×2 (03:17→06:04)
[2017-09-21] MEDS: Albuterol-Ipratrop 3 mg / 0.5 (3 ml) UD IH SCH ×4 (04:28→19:51)
[2017-09-21] MEDS: Meropenem 1 GM in Dextrose 5% In Water 100 ML IVPB SCH ×3 (05:25→22:44)
[2017-09-21] MEDS: Insulin Reg-MEDIUM-Coverage SC SCH ×4 (06:16→17:48)
[2017-09-21 06:33] LABS: BASO # 0.03 K/mm3 (0.0-2.0); BASO % 0.3 % (0.0-3.0); EOS # 0.1 (0.0-0.7); EOS % 0.7 % (1.5-5.0); GRAN # 7.7 (1.4-6.5); GRAN % 72.7 % (50.0-68.0); HEMATOCRIT 36.4 % (36.0-48.0); LYMPH # 1.8 (1.2-3.4); LYMPH % 17.2 % (22.0-35.0); MEAN CELL VOLUME 86.7 fl (80.0-105.0); MEAN CORPUSCULAR HEMOGLOBIN 28.3 pg (25.0-35.0); MEAN CORPUSCULAR HGB CONC 32.7 g/dl (31.0-37.0); MEAN PLATELET VOLUME 12.2 fl (7.0-11.0); MONO % 9.1 % (1.0-6.0); WHITE BLOOD COUNT 10.6 10^3/ul (4.5-11.0)
[2017-09-21 08:00] LABS: ALB/GLOB RATIO 1.2 (1.1-1.8); ALKALINE PHOSPHATASE 60 U/L (38-126); ALT/SGPT 31 U/L (7-56); AST/SGOT 28 U/L (14-36); BILIRUBIN,TOTAL 0.8 mg/dL (0.2-1.3); BLOOD UREA NITROGEN 33 mg/dL (7-21); CALCIUM 9.5 mg/dL (8.4-10.5); CARBON DIOXIDE 29 mmol/L (21-33); CHLORIDE 108 mmol/L (98-107); GFR AFRICAN-AMERICAN > 60; GLUCOSE,RANDOM 165 mg/dL (70-110); POTASSIUM 3.5 mmol/L (3.6-5.0); SODIUM 147 mmol/L (132-148); TOTAL PROTEIN 6.5 g/dL (5.8-8.3)
[2017-09-21] MEDS ORDERED: Potassium Chloride 40 mEq/30 ml LIQ UD PO ONE (08:36)
[2017-09-21] MEDS: Bacitracin Ointment 30 GM TUBE TOP SCH (09:31)
[2017-09-21] MEDS: Enoxaparin 60 mg Syringe SC SCH ×2 (09:41→21:01)
[2017-09-21] MEDS ORDERED: Bacitracin Ointment 30 GM TUBE TOP SCH (10:00)
--- NOTE | 2017-09-21 10:05 | RAD ---
HISTORY: pulm edema COMPARISON: 09/20/2017 FINDINGS: The endotracheal tube terminates 1.5 cm proximal to the sadie. The nasogastric tube terminates in the stomach. LUNGS: The lungs are well inflated. There is mild pulmonary venous congestion. No focal consolidation. PLEURA: No significant pleural effusion identified, no pneumothorax apparent. CARDIOVASCULAR: There is mild cardiomegaly. OSSEOUS STRUCTURES: No significant abnormalities. VISUALIZED UPPER ABDOMEN: Normal. OTHER FINDINGS: None. IMPRESSION: Mild cardiomegaly and pulmonary venous congestion.
--- NOTE | 2017-09-21 10:26 | CP.PCM.PN ---
<Jenny Cantu - Last Filed: 09/21/17 10:26> Subjective - Date & Time of Evaluation Date of Evaluation: 09/21/17 Time of Evaluation: 08:45 - Subjective Subjective: S&E at bedside, chart reviewed, son at bedside, patient being weened of sedation , awake and sewta to follow simple commands, denies abdominal pain, had BM post enema, no bleeding reported. Plan for extubation this am as per nursing staff. Objective - Vital Signs/Intake and Output Vital Signs (last 24 hours): Temp Pulse Resp BP Pulse Ox 99.4 F 73 16 178/72 H 100 09/21/17 04:00 09/21/17 08:20 09/21/17 07:09 09/21/17 08:20 09/21/17 08:20 Intake and Output: 09/21/17 09/21/17 06:59 18:59 Intake Total 130 0 Balance 130 0 - Medications Medications: Current Medications Albuterol/Ipratropium (Duoneb 3 Mg/0.5 Mg (3 Ml) Ud) 3 ml IH [id number] [facility] Last Admin: 09/21/17 07:01 Dose: 3 ml Albuterol/Ipratropium (Duoneb 3 Mg/0.5 Mg (3 Ml) Ud) 3 ml IH Q2H PRN PRN Reason: Shortness of Breath Aspirin (Ecotrin) 81 mg PO DAILY [facility] Last Admin: 09/20/17 10:59 Dose: 81 mg Bacitracin (Bacitracin) 0 gm TOP DAILY [facility] Chlorhexidine Gluconate (Peridex) 15 ml PO Q4 PRN PRN Reason: ORAL CARE Enoxaparin Sodium (Lovenox) 60 mg SC Q12H [facility] PRN Reason: Protocol Last Admin: 09/20/17 21:44 Dose: 60 mg Furosemide (Lasix) 40 mg IVP Q12 [facility] Last Admin: 09/20/17 21:44 Dose: 40 mg Meropenem 1 gm/ Dextrose 100 mls @ 100 mls/hr IVPB Q8 [facility] PRN Reason: Protocol Stop: 09/25/17 14:01 Last Admin: 09/21/17 05:25 Dose: 100 mls/hr Vancomycin HCl (Vancomycin 1gm) 1 gm in 250 mls @ 167 mls/hr IVPB Q12 [facility] PRN Reason: Protocol Last Admin: 09/20/17 21:45 Dose: 167 mls/hr Doxycycline Hyclate 100 mg/ (Sodium Chloride) 100 mls @ 100 mls/hr IVPB Q12 [facility] PRN Reason: Protocol Last Admin: 09/20/17 21:45 Dose: 100 mls/hr Propofol (Diprivan) 1,000 mg in 100 mls @ 1.932 mls/hr IV .Q24H PRN; Protocol; 5 MCG/KG/MIN PRN Reason: TITRATE PER MD ORDER Last Titration: 09/21/17 08:09 Dose: 0 mcg/kg/min, 0 mls/hr Midazolam 100 mg/100ml in NS (Midazolam 100 Mg/100ml In Ns) 100 mg in 100 mls @ 2 mls/hr IV .Q24H PRN; Protocol; 2 MG/HR PRN Reason: Agitation Last Admin: 09/19/17 17:18 Dose: 2 mg/hr, 2 mls/hr Insulin Human Regular (Humulin R Med) 0 units SC Q6 [facility] PRN Reason: Protocol Last Admin: 09/21/17 06:16 Dose: Not Given Metoprolol Tartrate (Lopressor) 25 mg PO BID [facility] Last Admin: 09/20/17 17:10 Dose: 25 mg Pantoprazole Sodium (Protonix Inj) 40 mg IVP DAILY [facility] Last Admin: 09/20/17 11:00 Dose: 40 mg Polyethylene Glycol (Miralax) 17 gm NG BID [facility] Last Admin: 09/20/17 17:10 Dose: 17 gm - Labs Labs: 09/21/17 06:00 09/21/17 06:00 PT 12.6 SECONDS (9.4-12.5) H 09/18/17 06:30 INR 1.14 (0.93-1.08) H 09/18/17 06:30 APTT 28.1 Seconds (25.1-36.5) 09/18/17 06:30 - Constitutional Appears: No Acute Distress (intubated and awake) - Eye Exam Eye Exam: Normal appearance. absent: Scleral icterus - ENT Exam ENT Exam: Mucous Membranes Moist - Neck Exam Neck Exam: Normal Inspection - Respiratory Exam Respiratory Exam: NORMAL BREATHING PATTERN. absent: Respiratory Distress - Cardiovascular Exam Cardiovascular Exam: +S1, +S2 - GI/Abdominal Exam GI & Abdominal Exam: Soft, Normal Bowel Sounds. absent: Guarding, Tenderness, Organomegaly, Rebound - Extremities Exam Extremities Exam: Normal Capillary Refill. absent: Calf Tenderness, Pedal Edema - Neurological Exam Neurological Exam: Alert, Awake, Oriented x3 - Skin Skin Exam: Dry, Warm Assessment and Plan - Assessment and Plan (Free Text) Assessment: Assessment: Sepsis Respiratory failure Bilateral lower lobe Constipation, impacted stool status post disimpaction Diverticulosis Hypokalemia Elevated troponin Plan: continue MiraLAX via NG tube BID on IV antibiotics as per ID on Aspirin On Lovenox continue Protonix as per ICU team consider ct scan of abdomen and pelvis when patient is more optimal, to be extubated today. Seen and discussed w/ Dr. Sarabia. <Dmitriy Sarabia V - Last Filed: 09/21/17 23:01> Objective - Vital Signs/Intake and Output Vital Signs (last 24 hours): Temp Pulse Resp BP Pulse Ox 97.8 F 60 23 122/56 L 98 09/21/17 16:00 09/21/17 17:30 09/21/17 17:21 09/21/17 21:00 09/21/17 17:21 Intake and Output: 09/21/17 09/22/17 18:59 06:59 Intake Total 0 Balance 0 - Medications Medications: Current Medications Albuterol/Ipratropium (Duoneb 3 Mg/0.5 Mg (3 Ml) Ud) 3 ml IH [id number] [facility] Last Admin: 09/21/17 19:51 Dose: 3 ml Albuterol/Ipratropium (Duoneb 3 Mg/0.5 Mg (3 Ml) Ud) 3 ml IH Q2H PRN PRN Reason: Shortness of Breath Last Admin: 09/21/17 10:00 Dose: 3 ml Aspirin (Ecotrin) 81 mg PO DAILY [facility] Last Admin: 09/21/17 11:36 Dose: 81 mg Bacitracin (Bacitracin) 0 gm TOP DAILY [facility] Last Admin: 09/21/17 09:31 Dose: 1 applic Chlorhexidine Gluconate (Peridex) 15 ml PO Q4 PRN PRN Reason: ORAL CARE Clopidogrel Bisulfate (Plavix) 75 mg PO DAILY [facility] Enoxaparin Sodium (Lovenox) 60 mg SC Q12H [facility] PRN Reason: Protocol Last Admin: 09/21/17 21:01 Dose: 60 mg Furosemide (Lasix) 40 mg IVP Q12 [facility] Last Admin: 09/21/17 21:00 Dose: 40 mg Meropenem 1 gm/ Dextrose 100 mls @ 100 mls/hr IVPB Q8 [facility] PRN Reason: Protocol Stop: 09/25/17 14:01 Last Admin: 09/21/17 22:44 Dose: 100 mls/hr Vancomycin HCl (Vancomycin 1gm) 1 gm in 250 mls @ 167 mls/hr IVPB Q12 [facility] PRN Reason: Protocol Last Admin: 09/21/17 21:01 Dose: 167 mls/hr Doxycycline Hyclate 100 mg/ (Sodium Chloride) 100 mls @ 100 mls/hr IVPB Q12 [facility] PRN Reason: Protocol Last Admin: 09/21/17 09:33 Dose: 100 mls/hr Propofol (Diprivan) 1,000 mg in 100 mls @ 1.932 mls/hr IV .Q24H PRN; Protocol; 5 MCG/KG/MIN PRN Reason: TITRATE PER MD ORDER Last Titration: 09/21/17 08:09 Dose: 0 mcg/kg/min, 0 mls/hr Midazolam 100 mg/100ml in NS (Midazolam 100 Mg/100ml In Ns) 100 mg in 100 mls @ 2 mls/hr IV .Q24H PRN; Protocol; 2 MG/HR PRN Reason: Agitation Last Admin: 09/19/17 17:18 Dose: 2 mg/hr, 2 mls/hr Insulin Human Regular (Humulin R Med) 0 units SC Q6 [facility] PRN Reason: Protocol Last Admin: 09/21/17 17:48 Dose: Not Given Metoprolol Tartrate (Lopressor) 25 mg PO BID [facility] Last Admin: 09/21/17 17:30 Dose: 25 mg Pantoprazole Sodium (Protonix Inj) 40 mg IVP DAILY [facility] Last Admin: 09/21/17 09:32 Dose: 40 mg Polyethylene Glycol (Miralax) 17 gm NG BID [facility] Last Admin: 09/21/17 17:32 Dose: 17 gm - Labs Labs: 09/21/17 06:00 09/21/17 06:00 PT 12.6 SECONDS (9.4-12.5) H 09/18/17 06:30 INR 1.14 (0.93-1.08) H 09/18/17 06:30 APTT 28.1 Seconds (25.1-36.5) 09/18/17 06:30 Attending/Attestation - Attestation I have personally seen and examined this patient.: Yes I have fully participated in the care of the patient.: Yes I have reviewed all pertinent clinical information, including history, physical exam and plan: Yes Notes (Text): this patient was seen and evaluated earlier. This is an addendum to GI consultation report dictated by Jenny Cantu APN. Patient was being extubated at the time of examination. Continue MiraLAX extending into the CT of the abdomen and pelvis and the patient is more stable Discussed with the patient's son was at bedside at the time of examination 09/21/17 23:01
--- NOTE | 2017-09-21 10:37 | CP.PCM.PN ---
Subjective - Date & Time of Evaluation Date of Evaluation: 09/21/17 Time of Evaluation: 09:50 - Subjective Subjective: On the ventilator and will be extubated soon, no fevers overnight, not in distress and comfortable. Objective - Vital Signs/Intake and Output Vital Signs (last 24 hours): Temp Pulse Resp BP Pulse Ox 99.4 F 74 16 100/47 L 98 09/21/17 04:00 09/21/17 06:20 09/21/17 04:00 09/21/17 06:20 09/21/17 06:20 Intake and Output: 09/20/17 09/21/17 18:59 06:59 Intake Total 940 130 Output Total 2000 Balance -1060 130 - Medications Medications: Current Medications Albuterol/Ipratropium (Duoneb 3 Mg/0.5 Mg (3 Ml) Ud) 3 ml IH [id number] [facility] Last Admin: 09/21/17 04:28 Dose: 3 ml Albuterol/Ipratropium (Duoneb 3 Mg/0.5 Mg (3 Ml) Ud) 3 ml IH Q2H PRN PRN Reason: Shortness of Breath Aspirin (Ecotrin) 81 mg PO DAILY [facility] Last Admin: 09/20/17 10:59 Dose: 81 mg Chlorhexidine Gluconate (Peridex) 15 ml PO Q4 PRN PRN Reason: ORAL CARE Enoxaparin Sodium (Lovenox) 60 mg SC Q12H [facility] PRN Reason: Protocol Last Admin: 09/20/17 21:44 Dose: 60 mg Furosemide (Lasix) 40 mg IVP Q12 [facility] Last Admin: 09/20/17 21:44 Dose: 40 mg Meropenem 1 gm/ Dextrose 100 mls @ 100 mls/hr IVPB Q8 [facility] PRN Reason: Protocol Stop: 09/25/17 14:01 Last Admin: 09/21/17 05:25 Dose: 100 mls/hr Vancomycin HCl (Vancomycin 1gm) 1 gm in 250 mls @ 167 mls/hr IVPB Q12 [facility] PRN Reason: Protocol Last Admin: 09/20/17 21:45 Dose: 167 mls/hr Doxycycline Hyclate 100 mg/ (Sodium Chloride) 100 mls @ 100 mls/hr IVPB Q12 [facility] PRN Reason: Protocol Last Admin: 09/20/17 21:45 Dose: 100 mls/hr Propofol (Diprivan) 1,000 mg in 100 mls @ 1.932 mls/hr IV .Q24H PRN; Protocol; 5 MCG/KG/MIN PRN Reason: TITRATE PER MD ORDER Last Titration: 09/21/17 06:46 Dose: 30 mcg/kg/min, 11.594 mls/hr Midazolam 100 mg/100ml in NS (Midazolam 100 Mg/100ml In Ns) 100 mg in 100 mls @ 2 mls/hr IV .Q24H PRN; Protocol; 2 MG/HR PRN Reason: Agitation Last Admin: 09/19/17 17:18 Dose: 2 mg/hr, 2 mls/hr Insulin Human Regular (Humulin R Med) 0 units SC Q6 [facility] PRN Reason: Protocol Last Admin: 09/21/17 06:16 Dose: Not Given Metoprolol Tartrate (Lopressor) 25 mg PO BID [facility] Last Admin: 09/20/17 17:10 Dose: 25 mg Pantoprazole Sodium (Protonix Inj) 40 mg IVP DAILY [facility] Last Admin: 09/20/17 11:00 Dose: 40 mg Polyethylene Glycol (Miralax) 17 gm NG BID [facility] Last Admin: 09/20/17 17:10 Dose: 17 gm - Labs Labs: 09/21/17 06:00 09/20/17 06:50 PT 12.6 SECONDS (9.4-12.5) H 09/18/17 06:30 INR 1.14 (0.93-1.08) H 09/18/17 06:30 APTT 28.1 Seconds (25.1-36.5) 09/18/17 06:30 - Constitutional Appears: Other (on the ventilator) - Head Exam Head Exam: NORMAL INSPECTION - ENT Exam Additional comments: ET tube in place - Neck Exam Neck Exam: absent: Lymphadenopathy, Meningismus - Respiratory Exam Respiratory Exam: Decreased Breath Sounds (at the bases) - Cardiovascular Exam Cardiovascular Exam: +S1, +S2 - GI/Abdominal Exam GI & Abdominal Exam: Soft. absent: Tenderness Assessment and Plan - Assessment and Plan (Free Text) Plan: Assessment Consider severe sepsis with hypoxic respiratory failure, ventilator-dependent due to bilateral lower lobe pneumonia, severe community-acquired pneumonia as well as probable congestive heart failure with NSTEMI HTN dyslipidemia DM hypothyroidism Plan continue Vancomycin, Merrem and Doxycycline day 4; sputum cx, blood cx are negative; PCT is low; urine Legionella Ag and Influenza tests are negative; WBC count was elevated on admission but has normalized - complete 7 days of antibiotics patient is planned for cardiac cath once extubated and stable will continue to monitor clinically
[2017-09-21] MEDS: Vancomycin 1gm in NS 250ml 1 GM/250 ML BAG IVPB SCH ×2 (10:55→21:01)
[2017-09-21] MEDS: POLYETHYLENE GLYCOL 3350 17 GM/Dose PACKET NG SCH ×2 (11:36→17:32)
--- NOTE | 2017-09-21 14:16 | CP.CCUPN ---
<Pradeep Arias - Last Filed: 09/21/17 14:08> CCU Subjective - Physician Review Subjective (Free Text): 09/21/17 14:08 Pradeep Arias D.O. PGY-3, Critical Care Progress Note 77 year old female with a PMHx of hypertension, hyperlipidemia, non-insulin dependent diabetes, and hypothyroidism, who was admitted for evaluation and treatment of severe respiratory distress and sepsis, hospital course complicated by flash pulmonary edema after extubation and requiring re- intubation, now undergoing diuresis. Patient was seen and examined at bedside with son present. Patient is still intubated but now on PS/CPAP for possible weaning and extubation. Patient with reduced sedation and able to nod and shake head for answers. No acute complaints. No BLOOM/CP/SOB/N/V or otherwise. No acute overnight events. CCU Objective - Vital Signs / Intake & Output Vital Signs (Last 4 hours): Vital Signs Temp Pulse Resp BP Pulse Ox 09/21/17 13:16 61 33 H 98 09/21/17 13:12 63 20 144/75 94 L 09/21/17 13:10 79 35 H 99 09/21/17 13:00 72 24 135/57 L 96 09/21/17 12:05 72 22 122/62 98 09/21/17 12:00 96.8 F L 76 29 H 139/60 97 09/21/17 11:50 78 25 H 98 09/21/17 11:40 79 16 98 09/21/17 11:36 73 122/62 09/21/17 11:30 76 24 138/55 L 96 09/21/17 10:24 77 21 134/63 98 09/21/17 10:20 75 96 09/21/17 10:10 72 97 Intake and Output (Last 8hrs): Intake & Output 09/20/17 09/21/17 09/21/17 22:59 06:59 14:59 Intake Total 840 130 0 Output Total 1999 Balance -1160 130 0 Intake: IV 840 130 0 Right Forearm 740 Output: Urine 1999 Urethral ([place]) 1999 Other: # Bowel Movements 1 - Physical Exam Head: Positive for: Atraumatic, Normocephalic Pupils: Positive for: PERRL Extroacular Muscles: Positive for: EOMI Conjunctiva: Positive for: Normal Ears: Positive for: Normal Mouth: Positive for: Moist Mucous Membranes, Other (intubated, OG tube) Pharnyx: Positive for: Normal. Negative for: ERYTHEMA, EXUDATE, TONSILS ENLARGED Nose (Internal): Positive for: Normal Inspection Neck: Positive for: Trachea Midline. Negative for: JVD Respiratory/Chest: Positive for: Good Air Exchange, Other (improved in bibasilar crackles, mild residual on right lower). Negative for: Accessory Muscle Use Cardiovascular: Positive for: Regular Rate and Rhythm, Normal S1, S2. Negative for: Murmurs, Rub, Gallop Abdomen: Positive for: Normal Bowel Sounds. Negative for: Tenderness, Distention, Peritoneal Signs Upper Extremity: Positive for: Normal Inspection Lower Extremity: Positive for: Normal Inspection. Negative for: Edema Neurological: Positive for: Other (sedated) Skin: Positive for: Warm, Dry. Negative for: Rashes Psychiatric: Positive for: Alert - Medications Active Medications: Active Medications Generic Name Dose Route Start Last Admin Trade Name Freq PRN Reason Stop Dose Admin Albuterol/Ipratropium 3 ml 09/17/17 23:30 09/21/17 07:01 Duoneb 3 Mg/0.5 Mg (3 Ml) Ud IH 3 ml [id number] EDISON Administration Albuterol/Ipratropium 3 ml 09/17/17 22:33 09/21/17 10:00 Duoneb 3 Mg/0.5 Mg (3 Ml) Ud IH 3 ml Q2H PRN Administration Shortness of Breath Aspirin 81 mg 09/19/17 10:00 09/21/17 11:36 Ecotrin PO 81 mg DAILY EDISON Administration Bacitracin 0 gm 09/21/17 10:00 09/21/17 09:31 Bacitracin TOP 1 applic DAILY EDISON Administration Chlorhexidine Gluconate 15 ml 09/18/17 04:16 Peridex PO Q4 PRN ORAL CARE Clopidogrel Bisulfate 75 mg 09/22/17 10:00 Plavix PO DAILY EDISON Enoxaparin Sodium 60 mg 09/18/17 22:00 09/21/17 09:41 Lovenox SC 60 mg Q12H EDISON Administration Protocol Furosemide 40 mg 09/19/17 22:00 09/21/17 09:32 Lasix IVP 40 mg Q12 EDISON Administration Meropenem 1 gm/ Dextrose 100 mls @ 100 mls/hr 09/18/17 14:00 09/21/17 05:25 IVPB 09/25/17 14:01 100 mls/hr Q8 EDISON Administration Protocol Vancomycin HCl 1 gm in 250 mls @ 167 mls/hr 09/18/17 10:00 09/21/17 10:55 Vancomycin 1gm IVPB 167 mls/hr Q12 EDISON Administration Protocol Doxycycline Hyclate 100 mg/ 100 mls @ 100 mls/hr 09/18/17 10:00 09/21/17 09: 33 Sodium Chloride IVPB 100 mls/hr Q12 EDISON Administration Protocol Propofol 1,000 mg in 100 mls @ 1.932 mls/hr 09/19/17 13:44 09/21/17 08:09 Diprivan IV 0 mcg/kg/min .Q24H PRN 0 mls/hr TITRATE PER MD ORDER Titration Protocol 5 MCG/KG/MIN Midazolam 100 mg/100ml in NS 100 mg in 100 mls @ 2 mls/hr 09/19/17 16:50 17:18 Midazolam 100 Mg/100ml In Ns IV 2 mg/hr .Q24H PRN 2 mls/hr Agitation Administration Protocol 2 MG/HR Insulin Human Regular 0 units 09/19/17 00:44 09/21/17 12:07 Humulin R Med SC Not Given Q6 EDISON Protocol Metoprolol Tartrate 25 mg 09/18/17 18:00 09/21/17 11:36 Lopressor PO 25 mg BID EDISON Administration Pantoprazole Sodium 40 mg 09/18/17 10:00 09/21/17 09:32 Protonix Inj IVP 40 mg DAILY EDISON Administration Polyethylene Glycol 17 gm 09/20/17 18:00 09/21/17 11:36 Miralax NG 17 gm BID EDISON Administration - Patient Studies Lab Studies: Microbiology Studies 09/17/17 21:50 Blood Culture - Preliminary Blood-Venous NO GROWTH AFTER 3 DAYS 09/18/17 12:30 Gram Stain - Final Sputum Sputum Culture - Final NORMAL ORAL LIZZETH Lab Studies 09/21/17 09/21/17 09/21/17 Range/Units 06:11 06:00 06:00 WBC 10.6 (4.5-11.0) 10^3/ul RBC 4.20 (3.5-6.1) 10^6/uL Hgb 11.9 L (12.0-16.0) g/dL Hct 36.4 (36.0-48.0) % MCV 86.7 (80.0-105.0) fl MCH 28.3 (25.0-35.0) pg MCHC 32.7 (31.0-37.0) g/dl RDW 16.0 H (11.5-14.5) % Plt Count 281 (120.0-450.0) 10^3/uL MPV 12.2 H (7.0-11.0) fl Gran % 72.7 H (50.0-68.0) % Lymph % (Auto) 17.2 L (22.0-35.0) % [place] % (Auto) 9.1 H (1.0-6.0) % Eos % (Auto) 0.7 L (1.5-5.0) % Baso % (Auto) 0.3 (0.0-3.0) % Gran # 7.70 H (1.4-6.5) Lymph # 1.8 (1.2-3.4) [place] # 1.0 H (0.1-0.6) Eos # 0.1 (0.0-0.7) Baso # 0.03 (0.0-2.0) K/mm3 Sodium 147 (132-148) mmol/L Potassium 3.5 L (3.6-5.0) mmol/L Chloride 108 H (98-107) mmol/L Carbon Dioxide 29 (21-33) mmol/L Anion Gap 14 (10-20) BUN 33 H (7-21) mg/dL Creatinine 0.9 (0.7-1.2) mg/dl Est GFR ( Amer) > 60 Est GFR (Non-Af Amer) > 60 POC Glucose (mg/dL) 181 H (65-110) mg/dL Random Glucose 165 H (70-110) mg/dL Calcium 9.5 (8.4-10.5) mg/dL Total Bilirubin 0.8 (0.2-1.3) mg/dL AST 28 (14-36) U/L ALT 31 (7-56) U/L Alkaline Phosphatase 60 (38-126) U/L Total Protein 6.5 (5.8-8.3) g/dL Albumin 3.5 (3.0-4.8) g/dL Globulin 3.0 gm/dL Albumin/Globulin Ratio 1.2 (1.1-1.8) 09/21/17 09/20/17 09/20/17 Range/Units 00:36 17:55 11:55 WBC (4.5-11.0) 10^3/ul RBC (3.5-6.1) 10^6/uL Hgb (12.0-16.0) g/dL Hct (36.0-48.0) % MCV (80.0-105.0) fl MCH (25.0-35.0) pg MCHC (31.0-37.0) g/dl RDW (11.5-14.5) % Plt Count (120.0-450.0) 10^3/uL MPV (7.0-11.0) fl Gran % (50.0-68.0) % Lymph % (Auto) (22.0-35.0) % [place] % (Auto) (1.0-6.0) % Eos % (Auto) (1.5-5.0) % Baso % (Auto) (0.0-3.0) % Gran # (1.4-6.5) Lymph # (1.2-3.4) [place] # (0.1-0.6) Eos # (0.0-0.7) Baso # (0.0-2.0) K/mm3 Sodium (132-148) mmol/L Potassium (3.6-5.0) mmol/L Chloride (98-107) mmol/L Carbon Dioxide (21-33) mmol/L Anion Gap (10-20) BUN (7-21) mg/dL Creatinine (0.7-1.2) mg/dl Est GFR ( Amer) Est GFR (Non-Af Amer) POC Glucose (mg/dL) 172 H 167 H 160 H (65-110) mg/dL Random Glucose (70-110) mg/dL Calcium (8.4-10.5) mg/dL Total Bilirubin (0.2-1.3) mg/dL AST (14-36) U/L ALT (7-56) U/L Alkaline Phosphatase (38-126) U/L Total Protein (5.8-8.3) g/dL Albumin (3.0-4.8) g/dL Globulin gm/dL Albumin/Globulin Ratio (1.1-1.8) 09/20/17 09/20/17 09/19/17 Range/Units 06:07 00:05 17:58 WBC (4.5-11.0) 10^3/ul RBC (3.5-6.1) 10^6/uL Hgb (12.0-16.0) g/dL Hct (36.0-48.0) % MCV (80.0-105.0) fl MCH (25.0-35.0) pg MCHC (31.0-37.0) g/dl RDW (11.5-14.5) % Plt Count (120.0-450.0) 10^3/uL MPV (7.0-11.0) fl Gran % (50.0-68.0) % Lymph % (Auto) (22.0-35.0) % [place] % (Auto) (1.0-6.0) % Eos % (Auto) (1.5-5.0) % Baso % (Auto) (0.0-3.0) % Gran # (1.4-6.5) Lymph # (1.2-3.4) [place] # (0.1-0.6) Eos # (0.0-0.7) Baso # (0.0-2.0) K/mm3 Sodium (132-148) mmol/L Potassium (3.6-5.0) mmol/L Chloride (98-107) mmol/L Carbon Dioxide (21-33) mmol/L Anion Gap (10-20) BUN (7-21) mg/dL Creatinine (0.7-1.2) mg/dl Est GFR ( Amer) Est GFR (Non-Af Amer) POC Glucose (mg/dL) 169 H 242 H 223 H (65-110) mg/dL Random Glucose (70-110) mg/dL Calcium (8.4-10.5) mg/dL Total Bilirubin (0.2-1.3) mg/dL AST (14-36) U/L ALT (7-56) U/L Alkaline Phosphatase (38-126) U/L Total Protein (5.8-8.3) g/dL Albumin (3.0-4.8) g/dL Globulin gm/dL Albumin/Globulin Ratio (1.1-1.8) Laboratory Results - last 24 hr 09/19/17 09/20/17 09/20/17 17:58 00:05 06:07 WBC RBC Hgb Hct MCV MCH MCHC RDW Plt Count MPV Gran % Lymph % (Auto) [place] % (Auto) Eos % (Auto) Baso % (Auto) Gran # Lymph # [place] # Eos # Baso # Sodium Potassium Chloride Carbon Dioxide Anion Gap BUN Creatinine Est GFR ( Amer) Est GFR (Non-Af Amer) POC Glucose (mg/dL) 223 H 242 H 169 H Random Glucose Calcium Total Bilirubin AST ALT Alkaline Phosphatase Total Protein Albumin Globulin Albumin/Globulin Ratio 09/20/17 09/20/17 09/21/17 11:55 17:55 00:36 WBC RBC Hgb Hct MCV MCH MCHC RDW Plt Count MPV Gran % Lymph % (Auto) [place] % (Auto) Eos % (Auto) Baso % (Auto) Gran # Lymph # [place] # Eos # Baso # Sodium Potassium Chloride Carbon Dioxide Anion Gap BUN Creatinine Est GFR ( Amer) Est GFR (Non-Af Amer) POC Glucose (mg/dL) 160 H 167 H 172 H Random Glucose Calcium Total Bilirubin AST ALT Alkaline Phosphatase Total Protein Albumin Globulin Albumin/Globulin Ratio 09/21/17 09/21/17 09/21/17 06:00 06:00 06:11 WBC 10.6 RBC 4.20 Hgb 11.9 L Hct 36.4 MCV 86.7 MCH 28.3 MCHC 32.7 RDW 16.0 H Plt Count 281 MPV 12.2 H Gran % 72.7 H Lymph % (Auto) 17.2 L [place] % (Auto) 9.1 H Eos % (Auto) 0.7 L Baso % (Auto) 0.3 Gran # 7.70 H Lymph # 1.8 [place] # 1.0 H Eos # 0.1 Baso # 0.03 Sodium 147 Potassium 3.5 L Chloride 108 H Carbon Dioxide 29 Anion Gap 14 BUN 33 H Creatinine 0.9 Est GFR ( Amer) > 60 Est GFR (Non-Af Amer) > 60 POC Glucose (mg/dL) 181 H Random Glucose 165 H Calcium 9.5 Total Bilirubin 0.8 AST 28 ALT 31 Alkaline Phosphatase 60 Total Protein 6.5 Albumin 3.5 Globulin 3.0 Albumin/Globulin Ratio 1.2 Fingerstick Blood Sugar Results: 200 Assessment/Plan - Assessment and Plan (Free Text) Assessment: 77 year old female with a PMHx of hypertension, hyperlipidemia, non-insulin dependent diabetes, and hypothyroidism, who was admitted for evaluation and treatment of severe respiratory distress and sepsis, hospital course complicated by flash pulmonary edema after extubation and requiring re- intubation, now undergoing diuresis Plan: Neurological Sedated on propofol and versed but currently holding for planned extubation Nonfocal at this time, following commands Cardiovascular Likely NSTEMI from stress of extubation with flash pulmonary edema and rise in troponins Cardiology following, recs appreciated Continue enoxoparin 60 q12 Continue metoprolol 25 BID Echo showed preserved LVEF 60%-65%, moderate mitral valve stenosis, and RVSP of 63 Continue diuresis with lasix 40 q12 Hemodynamically stable at this time Maintain MAP > 65 Pulmnologic Respiratory failure with pneumonia and sepsis, intubated PRVC 450/16/5/60% at this time Sedation on hold this AM with PS/CPAP trial to see if patient can be extubated today Continue with duoneb edison and prn Continue with vancomycin, meropenem, and doxycycline day 4 ID following Maintain O2Sat >92% GI NPO at this time OG in place If extubated will advance diet Nephro/Electrolytes Monitoring IxOs Following BUN and Cr closely, mild increase in BUN but not Cr with diuretic use Mild contraction alkalosis, will continue to follow closely as fluid status improves Continue negative fluid balance Heme Anemia improved, likely was dilutional and improved with diuresis Did have D Dimer elevation but in setting of sepsis and BLE US negative for DVTs On therapeutic lovenox for NSTEMI HD stable ID Sepsis with pneumonia improved Continue with vancomycin, meropenem, and doxycycline day 4 ID consulted, recs appreciated Endo Diabetes, maintain euglycemia, cont RISS and accuchecks Hx hypothyroid but TSH low with normal T4, will restart levothyroxine pending clinical progression GI/DVT ppx: protonix/SCDs/therapeutic lovenox Dispo: plan for extubation today with careful monitoring of clinical status Patient seen and examined and case was discussed at length with attending physician. - Date & Time Date: 09/21/17 Time: 07:45 <Pio Olivas - Last Filed: 09/21/17 14:57> CCU Objective - Vital Signs / Intake & Output Vital Signs (Last 4 hours): Vital Signs Temp Pulse Resp BP Pulse Ox 09/21/17 13:16 61 33 H 98 09/21/17 13:12 63 20 144/75 94 L 09/21/17 13:10 79 35 H 99 09/21/17 13:00 72 24 135/57 L 96 09/21/17 12:05 72 22 122/62 98 09/21/17 12:00 96.8 F L 76 29 H 139/60 97 09/21/17 11:50 78 25 H 98 09/21/17 11:40 79 16 98 09/21/17 11:36 73 122/62 09/21/17 11:30 76 24 138/55 L 96 Intake and Output (Last 8hrs): Intake & Output 09/20/17 09/21/17 09/21/17 22:59 06:59 14:59 Intake Total 840 130 0 Output Total 1999 Balance -1160 130 0 Intake: IV 840 130 0 Right Forearm 740 Output: Urine 1999 Urethral ([place]) 1999 Other: # Bowel Movements 1 - Medications Active Medications: Active Medications Generic Name Dose Route Start Last Admin Trade Name Freq PRN Reason Stop Dose Admin Albuterol/Ipratropium 3 ml 09/17/17 23:30 09/21/17 07:01 Duoneb 3 Mg/0.5 Mg (3 Ml) Ud IH 3 ml [id number] EDISON Administration Albuterol/Ipratropium 3 ml 09/17/17 22:33 09/21/17 10:00 Duoneb 3 Mg/0.5 Mg (3 Ml) Ud IH 3 ml Q2H PRN Administration Shortness of Breath Aspirin 81 mg 09/19/17 10:00 09/21/17 11:36 Ecotrin PO 81 mg DAILY EDISON Administration Bacitracin 0 gm 09/21/17 10:00 09/21/17 09:31 Bacitracin TOP 1 applic DAILY EDISON Administration Chlorhexidine Gluconate 15 ml 09/18/17 04:16 Peridex PO Q4 PRN ORAL CARE Clopidogrel Bisulfate 75 mg 09/22/17 10:00 Plavix PO DAILY EDISON Enoxaparin Sodium 60 mg 09/18/17 22:00 09/21/17 09:41 Lovenox SC 60 mg Q12H EDISON Administration Protocol Furosemide 40 mg 09/19/17 22:00 09/21/17 09:32 Lasix IVP 40 mg Q12 EDISON Administration Meropenem 1 gm/ Dextrose 100 mls @ 100 mls/hr 09/18/17 14:00 09/21/17 05:25 IVPB 09/25/17 14:01 100 mls/hr Q8 EDISON Administration Protocol Vancomycin HCl 1 gm in 250 mls @ 167 mls/hr 09/18/17 10:00 09/21/17 10:55 Vancomycin 1gm IVPB 167 mls/hr Q12 EDISON Administration Protocol Doxycycline Hyclate 100 mg/ 100 mls @ 100 mls/hr 09/18/17 10:00 09/21/17 09: 33 Sodium Chloride IVPB 100 mls/hr Q12 EDISON Administration Protocol Propofol 1,000 mg in 100 mls @ 1.932 mls/hr 09/19/17 13:44 09/21/17 08:09 Diprivan IV 0 mcg/kg/min .Q24H PRN 0 mls/hr TITRATE PER MD ORDER Titration Protocol 5 MCG/KG/MIN Midazolam 100 mg/100ml in NS 100 mg in 100 mls @ 2 mls/hr 09/19/17 16:50 17:18 Midazolam 100 Mg/100ml In Ns IV 2 mg/hr .Q24H PRN 2 mls/hr Agitation Administration Protocol 2 MG/HR Insulin Human Regular 0 units 09/19/17 00:44 09/21/17 12:07 Humulin R Med SC Not Given Q6 [facility] Protocol Metoprolol Tartrate 25 mg 09/18/17 18:00 09/21/17 11:36 Lopressor PO 25 mg BID EDISON Administration Pantoprazole Sodium 40 mg 09/18/17 10:00 09/21/17 09:32 Protonix Inj IVP 40 mg DAILY EDISON Administration Polyethylene Glycol 17 gm 09/20/17 18:00 09/21/17 11:36 Miralax NG 17 gm BID EDSION Administration - Patient Studies Lab Studies: Microbiology Studies 09/17/17 21:50 Blood Culture - Preliminary Blood-Venous NO GROWTH AFTER 3 DAYS 09/18/17 12:30 Gram Stain - Final Sputum Sputum Culture - Final NORMAL ORAL LIZZETH Lab Studies 09/21/17 09/21/17 09/21/17 Range/Units 06:11 06:00 06:00 WBC 10.6 (4.5-11.0) 10^3/ul RBC 4.20 (3.5-6.1) 10^6/uL Hgb 11.9 L (12.0-16.0) g/dL Hct 36.4 (36.0-48.0) % MCV 86.7 (80.0-105.0) fl MCH 28.3 (25.0-35.0) pg MCHC 32.7 (31.0-37.0) g/dl RDW 16.0 H (11.5-14.5) % Plt Count 281 (120.0-450.0) 10^3/uL MPV 12.2 H (7.0-11.0) fl Gran % 72.7 H (50.0-68.0) % Lymph % (Auto) 17.2 L (22.0-35.0) % [place] % (Auto) 9.1 H (1.0-6.0) % Eos % (Auto) 0.7 L (1.5-5.0) % Baso % (Auto) 0.3 (0.0-3.0) % Gran # 7.70 H (1.4-6.5) Lymph # 1.8 (1.2-3.4) [place] # 1.0 H (0.1-0.6) Eos # 0.1 (0.0-0.7) Baso # 0.03 (0.0-2.0) K/mm3 Sodium 147 (132-148) mmol/L Potassium 3.5 L (3.6-5.0) mmol/L Chloride 108 H (98-107) mmol/L Carbon Dioxide 29 (21-33) mmol/L Anion Gap 14 (10-20) BUN 33 H (7-21) mg/dL Creatinine 0.9 (0.7-1.2) mg/dl Est GFR ( Amer) > 60 Est GFR (Non-Af Amer) > 60 POC Glucose (mg/dL) 181 H (65-110) mg/dL Random Glucose 165 H (70-110) mg/dL Calcium 9.5 (8.4-10.5) mg/dL Total Bilirubin 0.8 (0.2-1.3) mg/dL AST 28 (14-36) U/L ALT 31 (7-56) U/L Alkaline Phosphatase 60 (38-126) U/L Total Protein 6.5 (5.8-8.3) g/dL Albumin 3.5 (3.0-4.8) g/dL Globulin 3.0 gm/dL Albumin/Globulin Ratio 1.2 (1.1-1.8) 09/21/17 09/20/17 09/20/17 Range/Units 00:36 17:55 11:55 WBC (4.5-11.0) 10^3/ul RBC (3.5-6.1) 10^6/uL Hgb (12.0-16.0) g/dL Hct (36.0-48.0) % MCV (80.0-105.0) fl MCH (25.0-35.0) pg MCHC (31.0-37.0) g/dl RDW (11.5-14.5) % Plt Count (120.0-450.0) 10^3/uL MPV (7.0-11.0) fl Gran % (50.0-68.0) % Lymph % (Auto) (22.0-35.0) % [place] % (Auto) (1.0-6.0) % Eos % (Auto) (1.5-5.0) % Baso % (Auto) (0.0-3.0) % Gran # (1.4-6.5) Lymph # (1.2-3.4) [place] # (0.1-0.6) Eos # (0.0-0.7) Baso # (0.0-2.0) K/mm3 Sodium (132-148) mmol/L Potassium (3.6-5.0) mmol/L Chloride (98-107) mmol/L Carbon Dioxide (21-33) mmol/L Anion Gap (10-20) BUN (7-21) mg/dL Creatinine (0.7-1.2) mg/dl Est GFR ( Amer) Est GFR (Non-Af Amer) POC Glucose (mg/dL) 172 H 167 H 160 H (65-110) mg/dL Random Glucose (70-110) mg/dL Calcium (8.4-10.5) mg/dL Total Bilirubin (0.2-1.3) mg/dL AST (14-36) U/L ALT (7-56) U/L Alkaline Phosphatase (38-126) U/L Total Protein (5.8-8.3) g/dL Albumin (3.0-4.8) g/dL Globulin gm/dL Albumin/Globulin Ratio (1.1-1.8) 09/20/17 09/20/17 09/19/17 Range/Units 06:07 00:05 17:58 WBC (4.5-11.0) 10^3/ul RBC (3.5-6.1) 10^6/uL Hgb (12.0-16.0) g/dL Hct (36.0-48.0) % MCV (80.0-105.0) fl MCH (25.0-35.0) pg MCHC (31.0-37.0) g/dl RDW (11.5-14.5) % Plt Count (120.0-450.0) 10^3/uL MPV (7.0-11.0) fl Gran % (50.0-68.0) % Lymph % (Auto) (22.0-35.0) % [place] % (Auto) (1.0-6.0) % Eos % (Auto) (1.5-5.0) % Baso % (Auto) (0.0-3.0) % Gran # (1.4-6.5) Lymph # (1.2-3.4) [place] # (0.1-0.6) Eos # (0.0-0.7) Baso # (0.0-2.0) K/mm3 Sodium (132-148) mmol/L Potassium (3.6-5.0) mmol/L Chloride (98-107) mmol/L Carbon Dioxide (21-33) mmol/L Anion Gap (10-20) BUN (7-21) mg/dL Creatinine (0.7-1.2) mg/dl Est GFR ( Amer) Est GFR (Non-Af Amer) POC Glucose (mg/dL) 169 H 242 H 223 H (65-110) mg/dL Random Glucose (70-110) mg/dL Calcium (8.4-10.5) mg/dL Total Bilirubin (0.2-1.3) mg/dL AST (14-36) U/L ALT (7-56) U/L Alkaline Phosphatase (38-126) U/L Total Protein (5.8-8.3) g/dL Albumin (3.0-4.8) g/dL Globulin gm/dL Albumin/Globulin Ratio (1.1-1.8) Laboratory Results - last 24 hr 09/19/17 09/20/17 09/20/17 17:58 00:05 06:07 WBC RBC Hgb Hct MCV MCH MCHC RDW Plt Count MPV Gran % Lymph % (Auto) [place] % (Auto) Eos % (Auto) Baso % (Auto) Gran # Lymph # [place] # Eos # Baso # Sodium Potassium Chloride Carbon Dioxide Anion Gap BUN Creatinine Est GFR ( Amer) Est GFR (Non-Af Amer) POC Glucose (mg/dL) 223 H 242 H 169 H Random Glucose Calcium Total Bilirubin AST ALT Alkaline Phosphatase Total Protein Albumin Globulin Albumin/Globulin Ratio 09/20/17 09/20/17 09/21/17 11:55 17:55 00:36 WBC RBC Hgb Hct MCV MCH MCHC RDW Plt Count MPV Gran % Lymph % (Auto) [place] % (Auto) Eos % (Auto) Baso % (Auto) Gran # Lymph # [place] # Eos # Baso # Sodium Potassium Chloride Carbon Dioxide Anion Gap BUN Creatinine Est GFR ( Amer) Est GFR (Non-Af Amer) POC Glucose (mg/dL) 160 H 167 H 172 H Random Glucose Calcium Total Bilirubin AST ALT Alkaline Phosphatase Total Protein Albumin Globulin Albumin/Globulin Ratio 09/21/17 09/21/17 09/21/17 06:00 06:00 06:11 WBC 10.6 RBC 4.20 Hgb 11.9 L Hct 36.4 MCV 86.7 MCH 28.3 MCHC 32.7 RDW 16.0 H Plt Count 281 MPV 12.2 H Gran % 72.7 H Lymph % (Auto) 17.2 L [place] % (Auto) 9.1 H Eos % (Auto) 0.7 L Baso % (Auto) 0.3 Gran # 7.70 H Lymph # 1.8 [place] # 1.0 H Eos # 0.1 Baso # 0.03 Sodium 147 Potassium 3.5 L Chloride 108 H Carbon Dioxide 29 Anion Gap 14 BUN 33 H Creatinine 0.9 Est GFR ( Amer) > 60 Est GFR (Non-Af Amer) > 60 POC Glucose (mg/dL) 181 H Random Glucose 165 H Calcium 9.5 Total Bilirubin 0.8 AST 28 ALT 31 Alkaline Phosphatase 60 Total Protein 6.5 Albumin 3.5 Globulin 3.0 Albumin/Globulin Ratio 1.2 Assessment/Plan - Assessment and Plan (Free Text) Plan: Patient seen and examined, on rounds this morning, agree with note with following additions/exceptions: Pt is 77yo female a/w resp failure 2/2 pna and cardiogenic pulm edema, s/p extubation earlier this morning. Pt was placed on pressure support for 1hour, with good RSBI, tidal volumes, given Laisx 40mg IV x 1, and CXR showed improvement. Currently awake, alert, NAD, on 2LNC, sat 100%, passed speech swallow. Cont with 2LNC, abx as per ID, resume diet. Follow up cardiology regarding cardiac angiography. FS control, GI ppx, DVT ppx. STABLE. critical care 45 minutes
[2017-09-21] MEDS ORDERED: Potassium Chloride 40 mEq/30 ml LIQ UD NG ONE (21:49)
[2017-09-22] MEDS: Insulin Reg-MEDIUM-Coverage SC SCH ×4 (00:12→18:00)
--- NOTE | 2017-09-22 01:24 | PN ---
DATE: 09/21/2017 SUBJECTIVE: The patient was intubated this morning when I evaluated the patient. PHYSICAL EXAMINATION: VITAL SIGNS: Temperature is 97.8, pulse is 64, blood pressure is 151/69, respirations are 16, and O2 saturation is 95%. GENERAL: The patient is lying in bed, flat, comfortable. HEENT: No oral lesion. Anicteric sclerae. Moist mucosa. NECK: No JVD, adenopathy, or thyromegaly. CARDIOVASCULAR: S1 and S2, regular. No murmurs, rubs, or gallops. LUNGS: Clear to auscultation bilaterally. No wheeze, rales, or rhonchi. ABDOMEN: Bowel sounds are positive, soft, nontender and nondistended. EXTREMITIES: No cyanosis, clubbing or edema. ASSESSMENT: 1. Sepsis secondary to community-acquired pneumonia. 2. Respiratory failure, on ventilator. 3. Non-ST elevation myocardial infarction. 4. Diabetes type 2. 5. Hypertension. 6. Dyslipidemia. 7. Hypomagnesemia, improved. 8. Bilateral pleural effusion. 9. A 13-mm density within the left atrium. 10. Hypokalemia. PLAN: The patient is currently comfortable. The patient is going to be attempted to be weaned today. The patient has been on Lasix and potassium has been replaced. I did speak to the patient's son at the bedside to give him an update on the patient's diagnosis and plan of care. has been given for the arm. The patient is on doxycycline for antibiotics. She is on nebulizer treatment. She is receiving Lasix daily, but the patient is on Lovenox for anticoagulation. The patient is on Protonix IV. We will continue to follow closely. We will repeat blood work tomorrow. Dominic Gary MD
[2017-09-22] MEDS: Albuterol-Ipratrop 3 mg / 0.5 (3 ml) UD IH SCH ×4 (01:30→19:34)
[2017-09-22] MEDS: Meropenem 1 GM in Dextrose 5% In Water 100 ML IVPB SCH ×3 (05:04→23:44)
[2017-09-22 05:51] LABS: ARTERIAL BLOOD GAS HCO3 27.5 mmol/L (21-28); ARTERIAL BLOOD GAS O2 CAPACITY 16.8 mL/dl (16-24); ARTERIAL BLOOD GAS O2 CONTENT 16.7 ML/dl (15-23); ARTERIAL BLOOD HGB O2 SAT 95.7 % (95.0-98.0); CARBOXYHEMOGLOBIN 2.2 % (0.5-1.5); HHB 0.8 % (0-5); METHEMOGLOBIN 1.3 % (0.0-3.0)
[2017-09-22 07:12] LABS: BASO # 0.04 K/mm3 (0.0-2.0); BASO % 0.4 % (0.0-3.0); EOS # 0.2 (0.0-0.7); EOS % 2.2 % (1.5-5.0); GRAN # 5.78 (1.4-6.5); GRAN % 64.2 % (50.0-68.0); HEMATOCRIT 37.7 % (36.0-48.0); LYMPH # 2.1 (1.2-3.4); LYMPH % 23.3 % (22.0-35.0); MEAN CELL VOLUME 86.5 fl (80.0-105.0); MEAN CORPUSCULAR HEMOGLOBIN 28.2 pg (25.0-35.0); MEAN CORPUSCULAR HGB CONC 32.6 g/dl (31.0-37.0); MEAN PLATELET VOLUME 11.7 fl (7.0-11.0); MONO # 0.9 (0.1-0.6); MONO % 9.9 % (1.0-6.0); RED CELL DISTRIBUTION WIDTH 15.5 % (11.5-14.5)
[2017-09-22 07:43] LABS: ALB/GLOB RATIO 1.2 (1.1-1.8); ALKALINE PHOSPHATASE 62 U/L (38-126); ALT/SGPT 53 U/L (7-56); AST/SGOT 45 U/L (14-36); BILIRUBIN,TOTAL 0.9 mg/dL (0.2-1.3); BLOOD UREA NITROGEN 33 mg/dL (7-21); CALCIUM 10.1 mg/dL (8.4-10.5); CARBON DIOXIDE 31 mmol/L (21-33); CHLORIDE 105 mmol/L (98-107); GFR AFRICAN-AMERICAN > 60; GLUCOSE,RANDOM 168 mg/dL (70-110); SODIUM 144 mmol/L (132-148); TOTAL PROTEIN 6.9 g/dL (5.8-8.3)
--- NOTE | 2017-09-22 08:25 | PN ---
DATE: 09/21/2017 REASON FOR CONSULTATION AND FOLLOWUP: Respiratory failure status post intubation and possible non-ST segment myocardial infarction. SUBJECTIVE: The patient is intubated, but awake and alert. Son is by the bedside with holding hands. Denies any chest pain, shortness of breath or any palpitations. PHYSICAL EXAMINATION: VITAL SIGNS: As follows: Temperature afebrile, heart rate 72, and blood pressure 122/62. HEENT: PERRLA. Extraocular muscles intact. NECK: Supple. No carotid bruits or thyromegaly. CHEST: Clear to auscultation. HEART: S1 and S2 regular. ABDOMEN: Soft. EXTREMITIES: Clubbing and cyanosis negative. LABORATORY DATA: WBC 10.6, hemoglobin 11.9, hematocrit 36.4, and platelet count 281. Chemistry shows sodium 147, potassium 3.5, chloride 108, carbon dioxide 29, anion gap 14, BUN 33, and creatinine 0.4. Troponin 0.02, 0.08, 0.17, and 0.32. IMPRESSION: Respiratory failure, congestive heart failure, intubated, successfully extubated, then re-intubated, possibly pulmonary edema, non-ST segment myocardial infarction, pneumonia, chest x-ray reveals pulmonary venous congestion. RECOMMENDATIONS: Continue diuretics. Continue antibiotic. Continue aspirin. Continue Lovenox. Treat his unstable angina. Once the patient get extubated, since the patient is asymptomatic, no EKG changes, only troponin positive, borderline, so we will treat as unstable angina with Lovenox, beta-maci, aspirin, and Plavix. Once he gets extubated, we will do the cardiac catheterization . We will follow with you. We will put Plavix 75 mg daily from tomorrow and 300 mg today and once the patient is extubated, we will consider possible cardiac catheterization on Monday. Thank Dr. Gary for providing the opportunity in taking care of the patient. Edwin Baumann MD cc: Dominic Gary MD
[2017-09-22] MEDS: Vancomycin 1gm in NS 250ml 1 GM/250 ML BAG IVPB SCH ×2 (09:09→21:55)
[2017-09-22] MEDS: Bacitracin Ointment 30 GM TUBE TOP SCH (09:09)
[2017-09-22] MEDS: POLYETHYLENE GLYCOL 3350 17 GM/Dose PACKET NG SCH ×2 (09:10→18:32)
[2017-09-22] MEDS: Enoxaparin 60 mg Syringe SC SCH ×2 (09:18→21:54)
--- NOTE | 2017-09-22 10:44 | PN ---
DATE: 09/22/2017 REASON FOR CONSULTATION AND FOLLOWUP: Respiratory failure, status post intubation and possible [id number] myocardial infarction, self-extubated now. SUBJECTIVE: The patient extubated awake and alert. Daughter, Emily, is at the bedside. I discussed at length about the patient's condition and planning for cardiac catheterization. OBJECTIVE: GENERAL: Not in apparent distress, lying flat on the bed, about to be completely sedated during catheterization. VITAL SIGNS: Temperature afebrile, heart rate 60, and blood pressure 111/49. HEENT: PERRLA. Extraocular muscles intact. NECK: Supple. No carotid bruit or thyromegaly. CHEST: Clear to auscultation. HEART: S1 and S2, regular. ABDOMEN: Soft. EXTREMITIES: Clubbing and cyanosis negative. LABORATORY DATA: Blood workup as follows: WBC 9, hemoglobin 12.3, hematocrit 37.7, and platelet count 291. Chemistry shows sodium 144, potassium 4, chloride 105, carbon dioxide 31, anion gap of 13, BUN 33, and creatinine 0.8. Total protein 6.9, albumin 3.7, and albumin/globulin ratio is 1.0. Troponin maximum was 0.02, 0.08, 0.9, 0.32, 0.26. IMPRESSION: Possible and [id number] myocardial infarction versus spill of the troponin secondary to hemodynamic instability, pneumonia, respiratory failure, intubated for respiratory failure, intubated, subsequently extubated, then re-intubated, now subsequently re-extubated. Chest x-ray shows yesterday, mild pulmonary congestion. CT chest on 09/19/2017 showed bilateral pleural effusion, compressive atelectasis, and possible pneumonia. RECOMMENDATIONS: We will get a stat chest x-ray to compare. Continue broad-spectrum antibiotics, [id number] myocardial infarction. Discussed with the daughter, Emily, at length. Discussed with the patient for possible cardiac catheterization in a day or two, possibly on Monday. Interim, continue antibiotics and continue gentle diuretics. We will repeat chest x-ray, portable. Continue aspirin. Continue Plavix. Continue metoprolol and continue IV Lasix. Continue Lovenox. We will cut down the Lovenox to Monday 10 p.m., we will get cardiac catheterization on Monday. We will keep n.p.o. after Monday midnight for possible cardiac catheterization. We will follow with you. As mentioned, we will prepare for cardiac catheterization on Monday. I spoke to the family. N.p.o. after Monday midnight for cardiac catheterization on Monday. Thank you Dr. Moura for providing us the opportunity in taking care of the patient, Michael. Edwin Baumann MD
--- NOTE | 2017-09-22 10:56 | CP.PCM.PN ---
Subjective - Date & Time of Evaluation Date of Evaluation: 09/22/17 Time of Evaluation: 10:20 - Subjective Subjective: Patient is now extubated since yesterday, currently comfortable in bed, no fevers overnight, some cough, no SOB at rest. Objective - Vital Signs/Intake and Output Vital Signs (last 24 hours): Temp Pulse Resp BP Pulse Ox 98 F 69 27 H 111/49 L 100 09/22/17 04:00 09/22/17 06:30 09/22/17 06:30 09/22/17 05:26 09/22/17 06:30 Intake and Output: 09/22/17 09/22/17 06:59 18:59 Intake Total 860 Output Total 1500 Balance -640 - Medications Medications: Current Medications Albuterol/Ipratropium (Duoneb 3 Mg/0.5 Mg (3 Ml) Ud) 3 ml IH [id number] [facility] Last Admin: 09/22/17 05:02 Dose: 3 ml Albuterol/Ipratropium (Duoneb 3 Mg/0.5 Mg (3 Ml) Ud) 3 ml IH Q2H PRN PRN Reason: Shortness of Breath Last Admin: 09/21/17 10:00 Dose: 3 ml Alprazolam (Xanax) 0.25 mg PO Q6H [facility] PRN Reason: Protocol Stop: 09/29/17 07:16 Aspirin (Ecotrin) 81 mg PO DAILY [facility] Last Admin: 09/21/17 11:36 Dose: 81 mg Bacitracin (Bacitracin) 0 gm TOP DAILY [facility] Last Admin: 09/21/17 09:31 Dose: 1 applic Chlorhexidine Gluconate (Peridex) 15 ml PO Q4 PRN PRN Reason: ORAL CARE Clopidogrel Bisulfate (Plavix) 75 mg PO DAILY [facility] Enoxaparin Sodium (Lovenox) 60 mg SC Q12H [facility] PRN Reason: Protocol Last Admin: 09/21/17 21:01 Dose: 60 mg Furosemide (Lasix) 40 mg IVP Q12 [facility] Last Admin: 09/21/17 21:00 Dose: 40 mg Meropenem 1 gm/ Dextrose 100 mls @ 100 mls/hr IVPB Q8 [facility] PRN Reason: Protocol Stop: 09/25/17 14:01 Last Admin: 09/22/17 05:04 Dose: 100 mls/hr Vancomycin HCl (Vancomycin 1gm) 1 gm in 250 mls @ 167 mls/hr IVPB Q12 [facility] PRN Reason: Protocol Last Admin: 09/21/17 21:01 Dose: 167 mls/hr Doxycycline Hyclate 100 mg/ (Sodium Chloride) 100 mls @ 100 mls/hr IVPB Q12 [facility] PRN Reason: Protocol Last Admin: 09/21/17 23:47 Dose: 100 mls/hr Propofol (Diprivan) 1,000 mg in 100 mls @ 1.932 mls/hr IV .Q24H PRN; Protocol; 5 MCG/KG/MIN PRN Reason: TITRATE PER MD ORDER Last Titration: 09/21/17 08:09 Dose: 0 mcg/kg/min, 0 mls/hr Midazolam 100 mg/100ml in NS (Midazolam 100 Mg/100ml In Ns) 100 mg in 100 mls @ 2 mls/hr IV .Q24H PRN; Protocol; 2 MG/HR PRN Reason: Agitation Last Admin: 09/19/17 17:18 Dose: 2 mg/hr, 2 mls/hr Insulin Human Regular (Humulin R Med) 0 units SC Q6 [facility] PRN Reason: Protocol Last Admin: 09/22/17 06:30 Dose: Not Given Metoprolol Tartrate (Lopressor) 25 mg PO BID [facility] Last Admin: 09/21/17 17:30 Dose: 25 mg Pantoprazole Sodium (Protonix Inj) 40 mg IVP DAILY [facility] Last Admin: 09/21/17 09:32 Dose: 40 mg Polyethylene Glycol (Miralax) 17 gm NG BID [facility] Last Admin: 09/21/17 17:32 Dose: 17 gm - Labs Labs: 09/21/17 06:00 09/21/17 06:00 PT 12.6 SECONDS (9.4-12.5) H 09/18/17 06:30 INR 1.14 (0.93-1.08) H 09/18/17 06:30 APTT 28.1 Seconds (25.1-36.5) 09/18/17 06:30 - Constitutional Appears: Non-toxic, No Acute Distress - Head Exam Head Exam: NORMAL INSPECTION - ENT Exam ENT Exam: Mucous Membranes Moist - Respiratory Exam Respiratory Exam: Decreased Breath Sounds - Cardiovascular Exam Cardiovascular Exam: +S1, +S2 - GI/Abdominal Exam GI & Abdominal Exam: Soft. absent: Tenderness Assessment and Plan - Assessment and Plan (Free Text) Plan: Assessment Consider severe sepsis with hypoxic respiratory failure, ventilator-dependent due to bilateral lower lobe pneumonia, severe community-acquired pneumonia as well as probable congestive heart failure with NSTEMI HTN dyslipidemia DM hypothyroidism Plan continue Vancomycin, Merrem and Doxycycline day 5, to complete 7 days of therapy ; sputum cx, blood cx are negative; PCT is low; urine Legionella Ag and Influenza tests are negative; WBC count was elevated on admission but has normalized patient is planned for cardiac cath will continue to monitor clinically
--- NOTE | 2017-09-22 11:31 | RAD ---
HISTORY: R/O pneumonia Vs CHF COMPARISON: 09/21/2017 FINDINGS: LUNGS: No active pulmonary disease. PLEURA: No significant pleural effusion identified, no pneumothorax apparent. CARDIOVASCULAR: Mild cardiomegaly. Improved vascular congestion OSSEOUS STRUCTURES: No significant abnormalities. VISUALIZED UPPER ABDOMEN: Normal. OTHER FINDINGS: None. IMPRESSION: Improved vascular congestion
--- NOTE | 2017-09-22 11:52 | PN ---
DATE: 09/22/2017 SUBJECTIVE: The patient has no complaints of any chest pain or shortness of breath. No headaches. She is alert and awake. PHYSICAL EXAMINATION: VITAL SIGNS: Temperature is 98, pulse is 69, blood pressure is 111/49, respirations 20. GENERAL: The patient is lying in bed, flat, comfortable. HEENT: No oral lesion. Anicteric sclerae. Moist mucosa. NECK: No JVD, adenopathy, or thyromegaly. CARDIOVASCULAR: S1 and S2, regular. No murmurs, rubs, or gallops. LUNGS: Clear to auscultation bilaterally. No wheeze, rales, or rhonchi. ABDOMEN: Bowel sounds are positive, soft, nontender and nondistended. EXTREMITIES: No cyanosis, clubbing or edema. LABORATORY DATA: White count of 9.0, hemoglobin 12.3, creatinine is 0.8. ASSESSMENT: 1. Community-acquired pneumonia. 2. Sepsis secondary to community-acquired pneumonia. 3. Respiratory failure, resolved, off ventilator. 4. [id number] myocardial infarction. 5. Diabetes type 2. 6. Hypertension. 7. Dyslipidemia. 8. Hypomagnesemia, improved. 9. Hypokalemia, improved. 10. Bilateral pleural effusion. 11. A 13-mm density in the left atrium. PLAN: The patient is currently on Lovenox for anticoagulation. She is on metoprolol and aspirin for her non-ST elevation DE. The patient is on MiraLax for constipation. She is receiving Protonix IV. The patient is going to continue with vancomycin. Blood cultures and urine cultures have been negative. She is being followed by GI. The patient's daughter is concerned about constipation. I did speak to her to give her an update on the patient's diagnosis and plan of care. We will start the patient on physical therapy. Dominic Gary MD
--- NOTE | 2017-09-22 12:07 | CP.PCM.PN ---
<Jenny Cantu - Last Filed: 09/22/17 12:06> Subjective - Date & Time of Evaluation Date of Evaluation: 09/22/17 Time of Evaluation: 09:30 - Subjective Subjective: Seen and examined at the bedside this a.m., patient had a large BM, no reports of overt GI bleed. Patient is awake, alert, and oriented. Denies nausea, vomiting, abdominal pain. No S OB or chest pain. Daughter, Emily at bedside. No acute overnight events. Objective - Vital Signs/Intake and Output Vital Signs (last 24 hours): Temp Pulse Resp BP Pulse Ox 98 F 73 25 H 111/49 L 98 09/22/17 08:00 09/22/17 10:16 09/22/17 10:16 09/22/17 09:08 09/22/17 10:16 Intake and Output: 09/22/17 09/22/17 06:59 18:59 Intake Total 860 250 Output Total 1500 400 Balance -640 -150 - Medications Medications: Current Medications Albuterol/Ipratropium (Duoneb 3 Mg/0.5 Mg (3 Ml) Ud) 3 ml IH Q2H PRN PRN Reason: Shortness of Breath Last Admin: 09/21/17 10:00 Dose: 3 ml Albuterol/Ipratropium (Duoneb 3 Mg/0.5 Mg (3 Ml) Ud) 3 ml IH [id number] [facility] Aspirin (Ecotrin) 81 mg PO DAILY [facility] Last Admin: 09/22/17 09:08 Dose: 81 mg Bacitracin (Bacitracin) 0 gm TOP DAILY [facility] Last Admin: 09/22/17 09:09 Dose: 1 applic Chlorhexidine Gluconate (Peridex) 15 ml PO Q4 PRN PRN Reason: ORAL CARE Clopidogrel Bisulfate (Plavix) 75 mg PO DAILY [facility] Last Admin: 09/22/17 09:08 Dose: 75 mg Enoxaparin Sodium (Lovenox) 60 mg SC Q12H [facility] PRN Reason: Protocol Stop: 09/24/17 22:00 Last Admin: 09/22/17 09:18 Dose: 60 mg Furosemide (Lasix) 40 mg IVP Q12 [facility] Last Admin: 09/22/17 09:08 Dose: 40 mg Meropenem 1 gm/ Dextrose 100 mls @ 100 mls/hr IVPB Q8 [facility] PRN Reason: Protocol Stop: 09/25/17 14:01 Last Admin: 09/22/17 05:04 Dose: 100 mls/hr Vancomycin HCl (Vancomycin 1gm) 1 gm in 250 mls @ 167 mls/hr IVPB Q12 [facility] PRN Reason: Protocol Last Admin: 09/22/17 09:09 Dose: 167 mls/hr Doxycycline Hyclate 100 mg/ (Sodium Chloride) 100 mls @ 100 mls/hr IVPB Q12 [facility] PRN Reason: Protocol Last Admin: 09/22/17 09:10 Dose: 100 mls/hr Propofol (Diprivan) 1,000 mg in 100 mls @ 1.932 mls/hr IV .Q24H PRN; Protocol; 5 MCG/KG/MIN PRN Reason: TITRATE PER MD ORDER Last Titration: 09/21/17 08:09 Dose: 0 mcg/kg/min, 0 mls/hr Midazolam 100 mg/100ml in NS (Midazolam 100 Mg/100ml In Ns) 100 mg in 100 mls @ 2 mls/hr IV .Q24H PRN; Protocol; 2 MG/HR PRN Reason: Agitation Last Admin: 09/19/17 17:18 Dose: 2 mg/hr, 2 mls/hr Insulin Human Regular (Humulin R Med) 0 units SC Q6 [facility] PRN Reason: Protocol Last Admin: 09/22/17 06:30 Dose: Not Given Metoprolol Tartrate (Lopressor) 25 mg PO BID [facility] Last Admin: 09/22/17 09:08 Dose: 25 mg Pantoprazole Sodium (Protonix Inj) 40 mg IVP DAILY [facility] Last Admin: 09/22/17 09:07 Dose: 40 mg Polyethylene Glycol (Miralax) 17 gm NG BID [facility] Last Admin: 09/22/17 09:10 Dose: 17 gm - Labs Labs: 09/22/17 06:30 09/22/17 06:30 PT 12.6 SECONDS (9.4-12.5) H 09/18/17 06:30 INR 1.14 (0.93-1.08) H 09/18/17 06:30 APTT 28.1 Seconds (25.1-36.5) 09/18/17 06:30 - Constitutional Appears: No Acute Distress - Head Exam Head Exam: NORMOCEPHALIC - Eye Exam Eye Exam: Normal appearance. absent: Scleral icterus - ENT Exam ENT Exam: Mucous Membranes Moist - Neck Exam Neck Exam: Normal Inspection - Respiratory Exam Respiratory Exam: NORMAL BREATHING PATTERN. absent: Respiratory Distress - Cardiovascular Exam Cardiovascular Exam: +S1, +S2 - GI/Abdominal Exam GI & Abdominal Exam: Soft, Normal Bowel Sounds. absent: Guarding, Tenderness, Organomegaly, Rebound - Extremities Exam Extremities Exam: Normal Capillary Refill. absent: Calf Tenderness, Pedal Edema - Neurological Exam Neurological Exam: Alert, Awake, Oriented x3 - Skin Skin Exam: Dry, Warm Assessment and Plan - Assessment and Plan (Free Text) Assessment: Assessment: Sepsis S/P Respiratory failure, extubated Bilateral lower lobe Constipation, impacted stool status post disimpaction Diverticulosis Hypokalemia Elevated troponin Plan: continue heart healthy diet continue MiraLAX on IV antibiotics as per ID on Aspirin on Plavix On Lovenox continue Protonix ct scan of abdomen and pelvis w/out PO or IV contrast, pt allergic, verified w/ ct scan dept, discuss w/ family. Seen and discussed w/ Dr. Sarabia. <Dmitriy Sarabia V - Last Filed: 09/23/17 14:50> Objective - Vital Signs/Intake and Output Vital Signs (last 24 hours): Temp Pulse Resp BP Pulse Ox 98.1 F 57 L 18 137/65 98 09/22/17 17:45 09/22/17 22:00 09/22/17 17:45 09/22/17 21:54 09/22/17 10:16 Intake and Output: 09/22/17 09/23/17 18:59 06:59 Intake Total 250 Output Total 400 Balance -150 - Medications Medications: Current Medications Albuterol/Ipratropium (Duoneb 3 Mg/0.5 Mg (3 Ml) Ud) 3 ml IH Q2H PRN PRN Reason: Shortness of Breath Last Admin: 09/21/17 10:00 Dose: 3 ml Albuterol/Ipratropium (Duoneb 3 Mg/0.5 Mg (3 Ml) Ud) 3 ml IH [id number] [facility] Last Admin: 09/22/17 19:34 Dose: 3 ml Aspirin (Ecotrin) 81 mg PO DAILY [facility] Last Admin: 09/22/17 09:08 Dose: 81 mg Bacitracin (Bacitracin) 0 gm TOP DAILY [facility] Last Admin: 09/22/17 09:09 Dose: 1 applic Chlorhexidine Gluconate (Peridex) 15 ml PO Q4 PRN PRN Reason: ORAL CARE Clopidogrel Bisulfate (Plavix) 75 mg PO DAILY [facility] Last Admin: 09/22/17 09:08 Dose: 75 mg Enoxaparin Sodium (Lovenox) 60 mg SC Q12H [facility] PRN Reason: Protocol Stop: 09/24/17 22:00 Last Admin: 09/22/17 21:54 Dose: 60 mg Furosemide (Lasix) 40 mg IVP Q12 [facility] Last Admin: 09/22/17 21:54 Dose: 40 mg Meropenem 1 gm/ Dextrose 100 mls @ 100 mls/hr IVPB Q8 [facility] PRN Reason: Protocol Stop: 09/25/17 14:01 Last Admin: 09/22/17 14:37 Dose: 100 mls/hr Vancomycin HCl (Vancomycin 1gm) 1 gm in 250 mls @ 167 mls/hr IVPB Q12 [facility] PRN Reason: Protocol Last Admin: 09/22/17 21:55 Dose: 167 mls/hr Doxycycline Hyclate 100 mg/ (Sodium Chloride) 100 mls @ 100 mls/hr IVPB Q12 [facility] PRN Reason: Protocol Last Admin: 09/22/17 09:10 Dose: 100 mls/hr Propofol (Diprivan) 1,000 mg in 100 mls @ 1.932 mls/hr IV .Q24H PRN; Protocol; 5 MCG/KG/MIN PRN Reason: TITRATE PER MD ORDER Last Titration: 09/21/17 08:09 Dose: 0 mcg/kg/min, 0 mls/hr Midazolam 100 mg/100ml in NS (Midazolam 100 Mg/100ml In Ns) 100 mg in 100 mls @ 2 mls/hr IV .Q24H PRN; Protocol; 2 MG/HR PRN Reason: Agitation Last Admin: 09/19/17 17:18 Dose: 2 mg/hr, 2 mls/hr Insulin Human Regular (Humulin R Med) 0 units SC ACHS [facility] PRN Reason: Protocol Metoprolol Tartrate (Lopressor) 25 mg PO BID [facility] Last Admin: 09/22/17 18:32 Dose: 25 mg Pantoprazole Sodium (Protonix Inj) 40 mg IVP DAILY [facility] Last Admin: 09/22/17 09:07 Dose: 40 mg Polyethylene Glycol (Miralax) 17 gm NG BID [facility] Last Admin: 09/22/17 18:32 Dose: 17 gm - Labs Labs: 09/22/17 06:30 09/22/17 06:30 PT 12.6 SECONDS (9.4-12.5) H 09/18/17 06:30 INR 1.14 (0.93-1.08) H 09/18/17 06:30 APTT 28.1 Seconds (25.1-36.5) 09/18/17 06:30 Attending/Attestation - Attestation I have personally seen and examined this patient.: Yes I have fully participated in the care of the patient.: Yes I have reviewed all pertinent clinical information, including history, physical exam and plan: Yes Notes (Text): this is an addendum to the GI progress report dictated by Jenny Cantu APN. Patient was seen and evaluated earlier. On examination abdomen soft no tenderness The CT scan was reviewed. No significant amount of stool present no fecal impaction. patient is on MiraLAX Coronary artery disease status post non-ST segment MA on aspirin and Plavix Pneumonia atelectasis, pleural effusion since the fecal impaction has improved, would titrate the dose of MiraLAX down. Continue to closely follow her care with the further management based on the course 09/22/17 22:40 09/23/17 14:49
--- NOTE | 2017-09-22 16:51 | CT ---
PROCEDURE: CT Abdomen and Pelvis without intravenous contrast HISTORY: constipation: no contrast iv/PO COMPARISON: None. TECHNIQUE: Unenhanced study. Neither oral nor intravenous contrast administered. Radiation dose: Total exam DLP = 327.47 mGy-cm. This CT exam was performed using one or more of the following dose reduction techniques: Automated exposure control, adjustment of the mA and/or kV according to patient size, and/or use of iterative reconstruction technique. FINDINGS: LOWER THORAX: Interval improvement with respect to effusions and infiltrates apparent on the prior CT of the thorax 09/19/2017. No new abnormalities lower thorax as visualized. LIVER: Unremarkable. No gross lesion or ductal dilatation. GALLBLADDER AND BILE DUCTS: Unremarkable. PANCREAS: Unremarkable. No gross lesion or ductal dilatation. SPLEEN: Unremarkable. ADRENALS: Unremarkable. No mass. KIDNEYS AND URETERS: Unremarkable. No hydronephrosis. No solid mass. VASCULATURE: Calcified nonaneurysmal abdominal aorta. BOWEL: Diverticulosis without an acute inflammatory component or other associated pathologic process. Constipation without fecal impaction or obstruction. APPENDIX: Unremarkable. Normal appendix. PERITONEUM: Unremarkable. No free fluid. No free air. LYMPH NODES: Unremarkable. No enlarged lymph nodes. BLADDER: Air identified within the urinary bladder likely iatrogenic/related to recent instrumentation REPRODUCTIVE: Unremarkable. BONES: No acute fracture. OTHER FINDINGS: None. IMPRESSION: No acute findings related to/accounting for the clinical presentation. Additional benign and/or incidental findings described above.
--- NOTE | 2017-09-22 20:46 | CP.PCM.PN ---
Subjective - Date & Time of Evaluation Date of Evaluation: 09/22/17 Time of Evaluation: 20:43 - Subjective Subjective: S:Seen at bedside. Requests something to help her sleep. States that she takes xanax sometimes and tylenol PM sometimes at home for that reason. Has no other complaints now. Medical record was reviewed. O: Last Vital Signs 3 Temp 98.1 F 09/22/17 17:45 Pulse 65 09/22/17 17:45 Resp 18 09/22/17 17:45 BP 127/81 09/22/17 18:32 Pulse Ox 98 09/22/17 10:16 Awake,alert,not in distress. LUNGS: Normal breathing pattern. A:Adjustment insomnia. P:Benadryl 25 mg PO x 1. Objective - Vital Signs/Intake and Output Vital Signs (last 24 hours): Temp Pulse Resp BP Pulse Ox 98.1 F 65 18 127/81 98 09/22/17 17:45 09/22/17 17:45 09/22/17 17:45 09/22/17 18:32 09/22/17 10:16 Intake and Output: 09/22/17 09/23/17 18:59 06:59 Intake Total 250 Output Total 400 Balance -150 - Medications Medications: Current Medications Albuterol/Ipratropium (Duoneb 3 Mg/0.5 Mg (3 Ml) Ud) 3 ml IH Q2H PRN PRN Reason: Shortness of Breath Last Admin: 09/21/17 10:00 Dose: 3 ml Albuterol/Ipratropium (Duoneb 3 Mg/0.5 Mg (3 Ml) Ud) 3 ml IH [id number] [facility] Last Admin: 09/22/17 19:34 Dose: 3 ml Aspirin (Ecotrin) 81 mg PO DAILY [facility] Last Admin: 09/22/17 09:08 Dose: 81 mg Bacitracin (Bacitracin) 0 gm TOP DAILY [facility] Last Admin: 09/22/17 09:09 Dose: 1 applic Chlorhexidine Gluconate (Peridex) 15 ml PO Q4 PRN PRN Reason: ORAL CARE Clopidogrel Bisulfate (Plavix) 75 mg PO DAILY [facility] Last Admin: 09/22/17 09:08 Dose: 75 mg Enoxaparin Sodium (Lovenox) 60 mg SC Q12H [facility] PRN Reason: Protocol Stop: 09/24/17 22:00 Last Admin: 09/22/17 09:18 Dose: 60 mg Furosemide (Lasix) 40 mg IVP Q12 [facility] Last Admin: 09/22/17 09:08 Dose: 40 mg Meropenem 1 gm/ Dextrose 100 mls @ 100 mls/hr IVPB Q8 [facility] PRN Reason: Protocol Stop: 09/25/17 14:01 Last Admin: 09/22/17 14:37 Dose: 100 mls/hr Vancomycin HCl (Vancomycin 1gm) 1 gm in 250 mls @ 167 mls/hr IVPB Q12 [facility] PRN Reason: Protocol Last Admin: 09/22/17 09:09 Dose: 167 mls/hr Doxycycline Hyclate 100 mg/ (Sodium Chloride) 100 mls @ 100 mls/hr IVPB Q12 [facility] PRN Reason: Protocol Last Admin: 09/22/17 09:10 Dose: 100 mls/hr Propofol (Diprivan) 1,000 mg in 100 mls @ 1.932 mls/hr IV .Q24H PRN; Protocol; 5 MCG/KG/MIN PRN Reason: TITRATE PER MD ORDER Last Titration: 09/21/17 08:09 Dose: 0 mcg/kg/min, 0 mls/hr Midazolam 100 mg/100ml in NS (Midazolam 100 Mg/100ml In Ns) 100 mg in 100 mls @ 2 mls/hr IV .Q24H PRN; Protocol; 2 MG/HR PRN Reason: Agitation Last Admin: 09/19/17 17:18 Dose: 2 mg/hr, 2 mls/hr Insulin Human Regular (Humulin R Med) 0 units SC Q6 [facility] PRN Reason: Protocol Last Admin: 09/22/17 18:00 Dose: 1 units Metoprolol Tartrate (Lopressor) 25 mg PO BID [facility] Last Admin: 09/22/17 18:32 Dose: 25 mg Pantoprazole Sodium (Protonix Inj) 40 mg IVP DAILY [facility] Last Admin: 09/22/17 09:07 Dose: 40 mg Polyethylene Glycol (Miralax) 17 gm NG BID [facility] Last Admin: 09/22/17 18:32 Dose: 17 gm - Labs Labs: 09/22/17 06:30 09/22/17 06:30 PT 12.6 SECONDS (9.4-12.5) H 09/18/17 06:30 INR 1.14 (0.93-1.08) H 09/18/17 06:30 APTT 28.1 Seconds (25.1-36.5) 09/18/17 06:30
[2017-09-23] MEDS: Albuterol-Ipratrop 3 mg / 0.5 (3 ml) UD IH SCH ×4 (01:18→21:02)
[2017-09-23] MEDS: Meropenem 1 GM in Dextrose 5% In Water 100 ML IVPB SCH ×2 (05:08→14:00)
[2017-09-23 07:22] LABS: BASO # 0.03 K/mm3 (0.0-2.0); BASO % 0.3 % (0.0-3.0); EOS # 0.3 (0.0-0.7); EOS % 3.1 % (1.5-5.0); GRAN # 5.91 (1.4-6.5); GRAN % 67.5 % (50.0-68.0); HEMATOCRIT 38.8 % (36.0-48.0); LYMPH # 1.7 (1.2-3.4); LYMPH % 19.9 % (22.0-35.0); MEAN CELL VOLUME 86.4 fl (80.0-105.0); MEAN CORPUSCULAR HEMOGLOBIN 28.5 pg (25.0-35.0); MEAN PLATELET VOLUME 11.9 fl (7.0-11.0); MONO # 0.8 (0.1-0.6); MONO % 9.2 % (1.0-6.0); RED CELL DISTRIBUTION WIDTH 15.1 % (11.5-14.5); WHITE BLOOD COUNT 8.8 10^3/ul (4.5-11.0)
[2017-09-23] MEDS ORDERED: Insulin Reg-MEDIUM-Coverage SC SCH (07:30)
[2017-09-23 07:36] LABS: ALB/GLOB RATIO 1.2 (1.1-1.8); ALKALINE PHOSPHATASE 70 U/L (38-126); ALT/SGPT 62 U/L (7-56); AST/SGOT 64 U/L (14-36); BILIRUBIN,TOTAL 0.8 mg/dL (0.2-1.3); BLOOD UREA NITROGEN 38 mg/dL (7-21); CALCIUM 9.8 mg/dL (8.4-10.5); CARBON DIOXIDE 32 mmol/L (21-33); CHLORIDE 103 mmol/L (98-107); GFR AFRICAN-AMERICAN > 60; GLUCOSE,RANDOM 156 mg/dL (70-110); MAGNESIUM 1.9 mg/dL (1.7-2.2); PHOSPHOROUS 4.4 mg/dL (2.5-4.5); POTASSIUM 3.7 mmol/L (3.6-5.0); SODIUM 141 mmol/L (132-148); TOTAL PROTEIN 6.4 g/dL (5.8-8.3)
[2017-09-23] MEDS ORDERED: Bacitracin 500 Units/gm Oint Foilpak UD ONE (10:49)
[2017-09-23] MEDS: POLYETHYLENE GLYCOL 3350 17 GM/Dose PACKET NG SCH ×2 (10:50→17:33)
[2017-09-23] MEDS: Bacitracin Ointment 30 GM TUBE TOP SCH (10:51)
[2017-09-23] MEDS: Enoxaparin 60 mg Syringe SC SCH ×2 (10:55→21:59)
[2017-09-23] MEDS: Insulin Reg-MEDIUM-Coverage SC SCH ×3 (12:31→22:00)
[2017-09-23] MEDS: Pantoprazole 40 mg EC Tab PO SCH (12:31)
[2017-09-23] MEDS: Vancomycin 1gm in NS 250ml 1 GM/250 ML BAG IVPB SCH (14:00)
--- NOTE | 2017-09-23 19:46 | PN ---
DATE: 09/23/2017 SUBJECTIVE: The patient is currently comfortable. She states she was able to get a good night sleep. She complains of arm pain in the right arm. Has no complaints of any headaches or dizziness . She is able to eat better. PHYSICAL EXAMINATION: VITAL SIGNS: Temperature is 97.1, pulse is 64, blood pressure is 128/76, and respirations 19. GENERAL: The patient is lying in bed, flat, comfortable. HEENT: No oral lesion. Anicteric sclerae. Moist mucosa. NECK: No JVD, adenopathy, or thyromegaly. CARDIOVASCULAR: S1 and S2, regular. No murmurs, rubs, or gallops. LUNGS: Clear to auscultation bilaterally. No wheeze, rales, or rhonchi. ABDOMEN: Bowel sounds are positive, soft, nontender and nondistended. EXTREMITIES: No cyanosis, clubbing or edema. LABORATORY DATA: White count of 8.8, hemoglobin of 12.8, and creatinine is 0.9. Chest x-ray done shows improved vascular congestion. The lungs show no active disease. CT of the abdomen and pelvis showed no acute findings. Constipation without fecal impaction. ASSESSMENT: 1. Community-acquired pneumonia, improved. 2. Sepsis secondary to community-acquired pneumonia. 3. Respiratory failure, improved, off ventilator. 4. Non-ST elevation myocardial infarction. 5. Diabetes type 2. 6. Hypertension. 7. Dyslipidemia. 8. Hypomagnesemia, improved. 9. Hypokalemia, improved. 10. Bilateral pleural effusion, improved. 11. A 13 mm density in the left atrium. 12. Constipation. PLAN: The patient is currently comfortable. She is out of the ICU. She is starting on physical therapy. She is receiving vancomycin for antibiotics. She is on Plavix for her OK. She is on constipation medications with MiraLax. The patient is on Lovenox for anticoagulation. She is receiving Lasix daily orally. She is on antibiotics of doxycycline. She may need to get a cardiac cath. I did advise her and the patient still at the bedside to go ahead with a cardiac cath. I believe the risks are high if she delays given that she had flash pulmonary edema after she was extubated and had an elevated troponin. TCU evaluation has been ordered. Dominic Gary MD
--- NOTE | 2017-09-23 22:47 | PN ---
SUBJECTIVE: This patient was seen and evaluated earlier today. The patient's son was at bedside at the time of examination. The patient has moved her bowel twice. PHYSICAL EXAMINATION: VITAL SIGNS: Temperature is 97.1, blood pressure 128/76, and pulse 70, respirations is 19. HEENT: Atraumatic, anicteric. NECK: Supple. HEART: S1 and S2 heard. LUNGS: Bilateral air entry present. There are few basal crepitations and crackles heard in the lungs. ABDOMEN: Soft. There is no mass palpable. No tenderness. LABORATORY DATA: Hemoglobin 12.8, hematocrit 38.8, WBC is 8.8, platelets 312. Chemistries essentially unremarkable except AST is 64 and ALT is 62. IMPRESSION: This 77-year-old patient admitted with shortness of breath, status post intubation; has respiratory failure, intubated. The patient is status post extubation; has a non-ST segment myocardial infarction, on aspirin and Plavix; history of atelectasis, rule out pneumonia, on antibiotics. The patient has fecal impaction which is status post disimpaction, on MiraLax, improving. Presently on twice a day MiraLax, we will cut it down to once a day. We will continue to closely follow up with the patient and suggest further management based on the clinical course. The patient may benefit from elective colonoscopy evaluation. She mentioned to me the last colonoscopy was more than 5 years ago. Dmitriy Sarabia MD
[2017-09-24] MEDS: Meropenem 1 GM in Dextrose 5% In Water 100 ML IVPB SCH ×2 (00:02→06:16)
[2017-09-24] MEDS: Vancomycin 1gm in NS 250ml 1 GM/250 ML BAG IVPB SCH ×2 (00:43→12:08)
[2017-09-24] MEDS: Albuterol-Ipratrop 3 mg / 0.5 (3 ml) UD IH SCH ×3 (02:53→13:10)
[2017-09-24 06:36] VITALS: O2SAT 97
[2017-09-24 07:20] LABS: BASO # 0.04 K/mm3 (0.0-2.0); BASO % 0.4 % (0.0-3.0); EOS # 0.2 (0.0-0.7); EOS % 2.2 % (1.5-5.0); GRAN # 6.53 (1.4-6.5); HEMATOCRIT 36.7 % (36.0-48.0); LYMPH # 1.7 (1.2-3.4); LYMPH % 17.7 % (22.0-35.0); MEAN CELL VOLUME 85.7 fl (80.0-105.0); MEAN CORPUSCULAR HEMOGLOBIN 27.6 pg (25.0-35.0); MEAN CORPUSCULAR HGB CONC 32.2 g/dl (31.0-37.0); MEAN PLATELET VOLUME 12.2 fl (7.0-11.0); MONO # 0.9 (0.1-0.6); MONO % 9.7 % (1.0-6.0); RED CELL DISTRIBUTION WIDTH 14.9 % (11.5-14.5); WHITE BLOOD COUNT 9.3 10^3/ul (4.5-11.0)
[2017-09-24 07:55] LABS: ALB/GLOB RATIO 1.1 (1.1-1.8); ALKALINE PHOSPHATASE 65 U/L (38-126); ALT/SGPT 52 U/L (7-56); AST/SGOT 51 U/L (14-36); BILIRUBIN,TOTAL 0.7 mg/dL (0.2-1.3); BLOOD UREA NITROGEN 36 mg/dL (7-21); CALCIUM 9.2 mg/dL (8.4-10.5); CARBON DIOXIDE 31 mmol/L (21-33); CHLORIDE 102 mmol/L (98-107); GFR AFRICAN-AMERICAN > 60; GLUCOSE,RANDOM 125 mg/dL (70-110); POTASSIUM 3.7 mmol/L (3.6-5.0); SODIUM 141 mmol/L (132-148); TOTAL PROTEIN 6.1 g/dL (5.8-8.3)
[2017-09-24] MEDS: Insulin Reg-MEDIUM-Coverage SC SCH ×2 (08:26→11:56)
--- NOTE | 2017-09-24 09:08 | PN ---
DATE: 09/24/2017 SUBJECTIVE: The patient has no complaints of any chest pain. No shortness of breath. No headaches or dizziness. PHYSICAL EXAMINATION: VITAL SIGNS: Temperature is 98.1, pulse 58, blood pressure is 143/66, respirations 18, O2 saturation 97%. GENERAL: The patient is lying in bed, flat, comfortable. HEENT: No oral lesion. Anicteric sclerae. Moist mucosa. NECK: No JVD, adenopathy, or thyromegaly. CARDIOVASCULAR: S1 and S2, regular. No murmurs, rubs, or gallops. LUNGS: Clear to auscultation bilaterally. No wheeze, rales, or rhonchi. ABDOMEN: Bowel sounds are positive, soft, nontender and nondistended. EXTREMITIES: No cyanosis, clubbing or edema. LABORATORY DATA: White count of 9.3, hemoglobin of 11.8, and platelet count 311. Chemistry shows sodium 141, potassium 3.7, and creatinine is 0.8. Chest x-ray shows improved vascular congestion. No active pulmonary disease seen. No infiltrates seen. ASSESSMENT: 1. Community-acquired pneumonia. 2. Sepsis secondary to community-acquired pneumonia, improved. 3. Respiratory failure, off ventilator, resolved. 4. Non-ST elevation myocardial infarction. 5. Diabetes type 2. 6. Hypertension. 7. Dyslipidemia. 8. Hypomagnesemia, improved. 9. Hypokalemia, improved. 10. Gait dysfunction. 11. Bilateral pleural effusion, improved. 12. Constipation. PLAN: The patient is currently comfortable. She is receiving doxycycline, meropenem, and vancomycin for antibiotics. The patient is on aspirin, metoprolol, and Lovenox for anticoagulation. She is on glyburide for her diabetes. The patient is receiving MiraLax for constipation. She is going to continue with Protonix. The patient's daughter is unhappy with the care here. She is asking to be transferred [facility]. She asked for me to speak to Dr. Julio Car, his office number is [phone]. I did speak to him on his cell number. His cell number is [phone]. The patient has been accepted. This is the patient's request for transfer. Dominic Gary MD [facility] # [id number]
[2017-09-24] MEDS: Pantoprazole 40 mg EC Tab PO SCH (09:26)
[2017-09-24] MEDS ORDERED: POLYETHYLENE GLYCOL 3350 17 GM/Dose PACKET NG SCH (10:00)
[2017-09-24] MEDS ORDERED: Enoxaparin 40 mg Syringe SC SCH (10:00)
[2017-09-24 12:53] VITALS: BP 131/70; PULSE 95; RESP 19; TEMP 98.7
--- NOTE | 2017-09-24 13:30 | PN ---
DATE: 09/24/2017 REASON FOR CONSULTATION AND FOLLOWUP: Respiratory failure, status post intubation, possible non-ST segment myocardial infarction, status post extubated, and pneumonia, resolving. SUBJECTIVE: The patient denies any chest pain, shortness of breath, or any palpitations. Emily, the daughter is at the bedside. OBJECTIVE/PHYSICAL EXAMINATION: As follows: GENERAL: Not in apparent distress. VITAL SIGNS: Temperature is afebrile, heart rate is 58, and blood pressure is 142/66. HEENT: PERRLA. Extraocular muscles are intact. NECK: Supple. No carotid bruit or thyromegaly. CHEST: Clear to auscultation. HEART: S1 and S2 regular. ABDOMEN: Soft. EXTREMITIES: Clubbing and cyanosis negative. LABORATORY DATA: Blood workup as follows: WBC of 9.3, hemoglobin of 11.8, hematocrit of 36.7, and platelet count of 311. Chemistry shows sodium of 141, potassium of 3.7, chloride of 102, carbon dioxide of 31, anion gap of 12, BUN of 36, and creatinine of 0.8. Total protein of 6.1, albumin of 3.2, and albumin and globulin ratio is 1.1. IMPRESSION AND PLAN: Possible [id number] myocardial infarction versus spill of the troponin secondary to hemodynamic instability, pneumonia, respiratory failure, intubated and extubated, and re-intubated and now subsequently extubated. Chest x-ray yesterday; mild congestion, cleared. CT scan on 09/19/2017 showed bilateral pleural effusion, compressive atelectasis, and possible pneumonia. Echocardiogram on 09/18/2017 showed ejection fraction of 55%, [id number]-[id number] mitral regurgitation, aortic sclerosis with mild aortic stenosis, moderate tricuspid regurgitation, severe calcification of mitral valve apparatus, moderate aortic valve stenosis, valve area is 1.2 cm square; moderate mitral stenosis, valve area 1.2 cm, and [id number] tricuspid regurgitation with right ventricular systolic pressure of 62, consistent with moderate pulmonary hypertension. Pneumonia, resolving. The patient is scheduled for cardiac catheterization of left and right heart catheterization, but I talked again this morning to Emily, earlier I talked to the son and and yesterday Dr. Edwards also spoke to the family, but the daughter, Emily, mentioned that she is not happy with the care in the [place] and wanted to take to [facility]. She tried to get in touch with somebody in [place] and possible transfer today to [facility] cardiac catheterization was performed there. Interim, continue aspirin and continue Plavix. Change Lovenox for deep venous thrombosis prophylaxis from today. We will cancel the n.p.o. and cancel the catheterization for tomorrow. I informed Dr. Moura. Discussed with the nursing staff taking care of the patient. Dr. Moura spoke to Dr. Julio Car for possible transfer. It is up to the patient's auto washer. We will cancel n.p.o. order. Edwin Baumann MD
--- NOTE | 2017-09-25 09:20 | PN ---
DATE: 09/23/2017 LOCATION: The patient in room 270, bed 2. REASON FOR CONSULTATION AND FOLLOWUP: Respiratory failure, pneumonia, pulmonary edema, possible non-ST elevation myocardial infarction. SUBJECTIVE: The patient sitting in chair without any chest pain, shortness of breath, or palpitations. PHYSICAL EXAMINATION: VITAL SIGNS: Blood pressure 139/75, respirations 20, pulse 68, temperature 97.8. HEENT: Head is normocephalic. Eyes; pupils normal. Conjunctivae are normal. Nose and throat normal. NECK: JVP low, carotid equal. THORAX: AP diameter normal. LUNGS: Normal lungs. No significant rales. CARDIOVASCULAR: S1 and S2. ABDOMEN: Soft. No tenderness. No organomegaly. EXTREMITIES: No clubbing. No cyanosis. The patient complains of pain in the left forearm where the IV site was, it is a little ecchymotic area on the forearm with slight redness around it. LABORATORY DATA: Chest x-ray was done yesterday and it showed clear lungs. Abdomen and pelvis CAT scan was also done yesterday and it did not show any significant acute abnormality. DIAGNOSES: Bilateral pneumonia, sepsis, respiratory failure, status post intubation, status post extubation, possible non-ST segment elevation myocardial infarction, status post pulmonary edema, history of diabetes mellitus, and history of hypertension. PLAN: The patient clinically is now out of CHF, so we will discontinue IV Lasix and put Lasix 40 mg p.o. daily. Also, we will put Bactroban ointment on the right forearm in the redness area. The patient is on doxycycline 100 mg IV q. 12 hours, DuoNeb hand nebulizer therapy, aspirin 81 mg daily, metoprolol 25 mg b.i.d., Lovenox 60 mg subcu q. 12 hours, meropenem 1 g IV q. 8 hours, glyburide 5 mg p.o. daily, Plavix 75 mg p.o. daily, vancomycin 1 g IV q. 12 hours and it is up until today. We will put the patient on Protonix 40 mg p.o. daily. The patient is scheduled for cath for Monday. Detailed discussion took place with family about cardiac catheterization. We will follow with you. Edwin Edwards MD
--- NOTE | 2017-09-25 11:18 | DS ---
HISTORY AND HOSPITAL COURSE: The patient was discharged and had been transferred to [facility]. I had spoken with Dr. Kim and made the arrangements by telephone, this is patient requested. Please see the note dictated on 09/24/2017 for details. Dominic Gary MD
== END 2017-09-24 14:15 | disposition short-term general hospital (02) | DRG 871 ==
LOC: ED 20:44 → ERH 21:10 → CCU 23:27 → 2RSO 09-22 12:09
PROVIDERS: ADMIT Internal Medicine Nephrology; ATTEND Internal Medicine Nephrology
PROC: 0BH17EZ Insertion of Endotracheal Airway into Trachea, Via Natural or Artificial Opening (ICD-10-PCS; principal; 2017-09-17)
PROC: 5A1945Z Respiratory Ventilation, 24-96 Consecutive Hours (ICD-10-PCS; 2017-09-17)
PROC: 3E0F7GC Introduction of Other Therapeutic Substance into Respiratory Tract, Via Natural or Artificial Opening (ICD-10-PCS; 2017-09-18)
PROC: 0BH17EZ Insertion of Endotracheal Airway into Trachea, Via Natural or Artificial Opening (ICD-10-PCS; 2017-09-19)
PROC: 5A1945Z Respiratory Ventilation, 24-96 Consecutive Hours (ICD-10-PCS; 2017-09-19)
DX: A41.9 Sepsis, unspecified organism (principal); J96.01 Acute respiratory failure with hypoxia; I21.4 Non-ST elevation (NSTEMI) myocardial infarction; J18.9 Pneumonia, unspecified organism; I11.0 Hypertensive heart disease with heart failure; E11.9 Type 2 diabetes mellitus without complications; I50.9 Heart failure, unspecified; E83.42 Hypomagnesemia; I27.20 Pulmonary hypertension, unspecified; I08.3 Combined rheumatic disorders of mitral, aortic and tricuspid valves; J44.0 Chronic obstructive pulmonary disease with (acute) lower respiratory infection; I25.10 Atherosclerotic heart disease of native coronary artery without angina pectoris; E78.5 Hyperlipidemia, unspecified; K21.9 Gastro-esophageal reflux disease without esophagitis; R65.20 Severe sepsis without septic shock; K56.41 Fecal impaction; E87.6 Hypokalemia; F51.02 Adjustment insomnia; R26.9 Unspecified abnormalities of gait and mobility; E03.9 Hypothyroidism, unspecified; Z79.4 Long term (current) use of insulin; Z79.82 Long term (current) use of aspirin; Z79.899 Other long term (current) drug therapy; Z90.49 Acquired absence of other specified parts of digestive tract; Z90.710 Acquired absence of both cervix and uterus